=== PATIENT | male | born 1965 | race American Indian/Alaskan Native ===

== ENCOUNTER 2016-11-12 07:21 | Emergency (ER) | payer SELFPAY ==
[2016-11-12] MEDS ORDERED: DUONEB 0.5 MG-3 MG/3 ML SOLN IH ONE (07:49)
--- NOTE | 2016-11-12 11:55 | Emergency Department Report ---
ED Asthma HPI - General Chief Complaint: Adult Asthma Stated Complaint: ASTHMA/SOB Time Seen by Provider: 11/12/16 11:21 Source: patient Mode of arrival: Ambulatory Limitations: No Limitations - History of Present Illness Initial Comments: Patient states that he woke up around 6 am today and was wheezing and SOB, has H /O asthma and had a few episodes like this over the last week; used rescue inhaler and 1 nebulizer treatment this morning, didn't help much; admits to H/O nasal polyps and chronic nasal congestion; denies fevers, sore throat and ear pain MD Complaint: "asthma attack", shortness of breath, wheezing -: Sudden, This morning Asthma History: childhood onset, history of prior ED visit Severity: similar to prior Context: allergen exposure Associated Symptoms: productive cough Treatments Prior to Arrival: inhaled steroid - Related Data Current Asthma Therapy: inhaled steroid Previous Rx's Medication Instructions Recorded Last Taken Type Albuterol Sulfate [Ventolin HFA] 2 puff IH Q4H PRN #1 hfa.aer.ad 02/18/16 Unknown Rx Azithromycin [Zithromax Z-JOEY] 250 mg PO DAILY #1 pack 02/18/16 Unknown Rx Fluticasone [Flonase] 1 spray NS QDAY #1 bottle 02/18/16 Unknown Rx predniSONE [Deltasone] 60 mg PO QDAY #14 tab 02/18/16 Unknown Rx Azithromycin [Zithromax Z-JOEY] 250 mg PO DAILY #6 tablet 06/26/16 Unknown Rx ALBUTEROL Inhaler [ProAir HFA 2 puff IH QID PRN #1 inhalation 07/15/16 Unknown Rx Inhaler] predniSONE [Deltasone] 40 mg PO QDAY #10 tab 07/15/16 Unknown Rx ALBUTEROL NEB's [Proventil 0.083% 2.5 mg IH Q4H PRN #25 neb 11/12/16 Unknown Rx NEBS] Loratadine 10 mg PO DAILY #30 tablet 11/12/16 Unknown Rx methylPREDNISolone [Medrol Dose 4 mg PO QAM #21 tab.ds.pk 11/12/16 Unknown Rx Joey] Allergies Allergy/AdvReac Type Severity Reaction Status Date / Time No Known Allergies Allergy Verified 07/15/16 12:07 ED Review of Systems ROS: Stated complaint: ASTHMA/SOB Other details as noted in HPI Constitutional: denies: chills, fever, weakness ENT: congestion. denies: ear pain, throat pain, hearing loss, epistaxis Respiratory: cough, shortness of breath, SOB with exertion, SOB at rest, wheezing Cardiovascular: denies: chest pain, palpitations, edema Gastrointestinal: denies: nausea, vomiting Musculoskeletal: denies: back pain, myalgia Neurological: headache ED Past Medical Hx - Past Medical History Hx Hypertension: No Hx Congestive Heart Failure: No Hx Diabetes: No Hx Asthma: Yes Hx COPD: No Additional medical history: Nasal polyps - Surgical History Additional Surgical History: MYRNA - Social History Smoking Status: Never Smoker Substance Use Type: None - Medications Home Medications: Home Medications Medication Instructions Recorded Confirmed Last Taken Type Albuterol Sulfate [Ventolin HFA] 2 puff IH Q4H PRN #1 hfa.aer.ad 02/18/16 Unknown Rx Azithromycin [Zithromax Z-JOEY] 250 mg PO DAILY #1 pack 02/18/16 Unknown Rx Fluticasone [Flonase] 1 spray NS QDAY #1 bottle 02/18/16 Unknown Rx predniSONE [Deltasone] 60 mg PO QDAY #14 tab 02/18/16 Unknown Rx Azithromycin [Zithromax Z-JOEY] 250 mg PO DAILY #6 tablet 06/26/16 Unknown Rx ALBUTEROL Inhaler [ProAir HFA 2 puff IH QID PRN #1 inhalation 07/15/16 Unknown Rx Inhaler] predniSONE [Deltasone] 40 mg PO QDAY #10 tab 07/15/16 Unknown Rx ALBUTEROL NEB's [Proventil 0.083% 2.5 mg IH Q4H PRN #25 neb 11/12/16 Unknown Rx NEBS] Loratadine 10 mg PO DAILY #30 tablet 11/12/16 Unknown Rx methylPREDNISolone [Medrol Dose 4 mg PO QAM #21 tab.ds.pk 11/12/16 Unknown Rx Joey] ED Physical Exam - General Limitations: No Limitations General appearance: alert, in no apparent distress - Head Head exam: Present: atraumatic, normocephalic, normal inspection - Eye Eye exam: Present: normal appearance, PERRL, EOMI Pupils: Present: normal accommodation - ENT ENT exam: Present: normal orophraynx, mucous membranes moist, TM's normal bilaterally, other (bilateral large nasal polyps) - Neck Neck exam: Present: normal inspection, full ROM. Absent: tenderness, lymphadenopathy - Respiratory Respiratory exam: Present: normal lung sounds bilaterally. Absent: respiratory distress, wheezes, rales, rhonchi, stridor, chest wall tenderness, accessory muscle use, decreased breath sounds, prolonged expiratory - Cardiovascular Cardiovascular Exam: Present: regular rate, normal rhythm, normal heart sounds - Extremities Exam Extremities exam: Present: full ROM - Back Exam Back exam: Present: full ROM - Neurological Exam Neurological exam: Present: alert, oriented X3, normal gait - Psychiatric Psychiatric exam: Present: normal affect, normal mood - Skin Skin exam: Present: warm, dry, intact, normal color ED Course Vital Signs 11/12/16 07:35 Temperature 97.8 F Pulse Rate 95 H Respiratory 22 Rate Blood Pressure 119/79 O2 Sat by Pulse 98 Oximetry - Reevaluation(s) Reevaluation #1: 11/12/16 11:57 Was medicated with 1 duoneb treatment and solu medrol IM and he felt much better at this time, says he had symptom resolution ED Medical Decision Making - Medical Decision Making In no respiratory distress at time of examination; will send home with oral steroids and nebulizer solution refills, told him to follow up with PCP, he verbalized understanding Critical care attestation.: If time is entered above; I have spent that time in minutes in the direct care of this critically ill patient, excluding procedure time. ED Disposition Clinical Impression: Asthma with acute exacerbation in adult Disposition: DISCHARGED TO HOME OR SELFCARE Is pt being admited?: No Does the pt Need Aspirin: No Condition: Stable Instructions: Asthma (ED) Prescriptions: ALBUTEROL NEB's [Proventil 0.083% NEBS] 2.5 mg IH Q4H PRN #25 neb PRN Reason: Shortness Of Breath Loratadine 10 mg PO DAILY #30 tablet methylPREDNISolone [Medrol Dose Joey] 4 mg PO QAM #21 tab.ds.pk Referrals: PRIMARY CARE, [Primary Care Provider] - 3-5 Days [facility] - [facility]-5 Days Time of Disposition: 12:05 Print Language: GREEK
[2016-11-12 12:12] VITALS: BP 120/72
== END 2016-11-12 12:12 | disposition home or self-care (01) ==
LOC: ED 07:21
DX: J45.901 Unspecified asthma with (acute) exacerbation (principal)
CPT/HCPCS: 94640; 96372; 99282; J2920

== ENCOUNTER 2016-11-23 00:03 | Emergency (ER) | payer SELFPAY ==
--- NOTE | 2016-11-23 06:12 | Emergency Department Report ---
HPI - General Chief Complaint: Adult Asthma Time Seen by Provider: 11/23/16 06:11 - HPI HPI: he is a 51-year-old male with a history of asthma who presents to ED status post asthma exacerbation. Patient states he was at home earlier when all of a sudden he couldn't breathe and began to feel like he was having an asthma attack. Patient's dates he used his last nebulized treatment and went on he realized that did not work so he called the ambulance. The ambulance brought him in given a breathing treatment in the ambulance. Patient states he felt better after receiving treatment. he states he has run out of his medication and would like a refill She denies fevers/chills/nausea/vomiting/abdominal pain/chest pain/shortness of breath. ED Past Medical Hx - Past Medical History Hx Hypertension: No Hx Congestive Heart Failure: No Hx Diabetes: No Hx Asthma: Yes Hx COPD: No Additional medical history: Nasal polyps - Surgical History Additional Surgical History: MYRNA - Social History Smoking Status: Never Smoker Substance Use Type: None - Medications Home Medications: Home Medications Medication Instructions Recorded Confirmed Last Taken Type Fluticasone [Flonase] 1 spray NS QDAY #1 bottle 02/18/16 Unknown Rx predniSONE [Deltasone] 60 mg PO QDAY #14 tab 02/18/16 Unknown Rx Azithromycin [Zithromax Z-LUL] 250 mg PO DAILY #6 tablet 06/26/16 Unknown Rx ALBUTEROL Inhaler [ProAir HFA 2 puff IH QID PRN #1 inhalation 07/15/16 Unknown Rx Inhaler] Loratadine 10 mg PO DAILY #30 tablet 11/12/16 Unknown Rx methylPREDNISolone [Medrol Dose 4 mg PO QAM #21 tab.ds.pk 11/12/16 Unknown Rx Lul] ALBUTEROL NEB's [Proventil 0.083% 2.5 mg IH Q4H PRN #25 neb 11/23/16 Unknown Rx NEBS] Albuterol Sulfate [Ventolin HFA] 2 puff IH Q4H PRN #1 hfa.aer.ad 11/23/16 Unknown Rx Azithromycin [Zithromax Z-LUL] 250 mg PO DAILY #1 pack 11/23/16 Unknown Rx predniSONE [Deltasone] 40 mg PO QDAY #10 tab 11/23/16 Unknown Rx ED Review of Systems ROS: Stated complaint: LYNN Other details as noted in HPI Constitutional: denies: chills, fever Eyes: denies: eye pain, eye discharge, vision change ENT: denies: ear pain, throat pain Respiratory: denies: cough, shortness of breath, wheezing Cardiovascular: denies: chest pain, palpitations Endocrine: no symptoms reported Gastrointestinal: denies: abdominal pain, nausea, diarrhea Genitourinary: denies: urgency, dysuria Musculoskeletal: denies: back pain, joint swelling, arthralgia Skin: denies: rash, lesions Neurological: denies: headache, weakness, paresthesias Psychiatric: denies: anxiety, depression Hematological/Lymphatic: denies: easy bleeding, easy bruising Physical Exam - Physical Exam Vital Signs: Vital Signs 11/23/16 00:39 Temperature 97.7 F Pulse Rate 109 H Respiratory 18 Rate Blood Pressure 137/85 Blood Pressure 137/85 [Left] O2 Sat by Pulse 100 Oximetry Physical Exam: GENERAL: Alert and oriented x3, no apparent distress, Normal Gait, atraumatic. HEAD: Head is normocephalic and a-traumatic. EYES: Extra ocular muscles are intact. Pupils are equal, round, and reactive to light and accommodation. EARS: symetrical, atraumatic, non tender, ear canal clear and moderate cerumen, tympanic membrance non inflamed. gross auditory nml bilaterally. NOSE: Nose symetrical, Nontender,Nares appeared normal. MOUTH:Mouth is well hydrated and without lesions. Tonsils nonerythematous or swollen, Uvula midline, Tongue not elevated. Mucous membranes are moist. Posterior pharynx clear, no exudate or lesions. Patent airways. NECK: Supple. Non edematous, No carotid bruits. No lymphadenopathy or thyromegaly. LUNGS: Symetrical with respiration, mild expiratory wheezing on the right lung base, no rales or crackles, CTAB. HEART: S1, S2 present, regular rate and rhythm without murmur, no rubs, no gallops. EXTREMITIES/MUSCULOSKELETAL: No cyanosis, clubbing, rash, lesions or edema. Full ROM bilaterally. UE/LE Pulses 2+ bilaterally. LE and UE 5+ strength bilaterally NEUROLOGIC: No focal Deficit, Cranial nerves II through XII are grossly intact. No loss of sensation, SKIN: Warm and dry, No lesions, No ulceration or induration present. Capillary refill present 2 seconds bilateral ED Course Vital Signs 11/23/16 00:39 Temperature 97.7 F Pulse Rate 109 H Respiratory 18 Rate Blood Pressure 137/85 Blood Pressure 137/85 [Left] O2 Sat by Pulse 100 Oximetry ED Medical Decision Making - Medical Decision Making 51-year-old male presents with asthma exacerbation ED course patient received respiratory treatment in EMS. Patient received 125 Solu-Medrol IM in ED. Patient reports feeling much better to breathe better. Discussed the patient home medication of antibiotic therapy for section prophylaxis. Discussed refill medication of albuterol inhaler and nebulizer. Discussed refill of prednisone daily 10 days. Discussed with patient to follow up with primary care physician. Discussed with patient to take medication as discussed and prescribed Vital signs are stable. Patient is in no acute or respiratory distress. Patient's sat at 98%. Patient states he understands and will comply to follow-up. She resting comfortable and can be discharged with home medications Critical care attestation.: If time is entered above; I have spent that time in minutes in the direct care of this critically ill patient, excluding procedure time. ED Disposition Clinical Impression: Medication refill Acute asthma exacerbation Qualifiers: Asthma severity: mild persistent Qualified Code(s): J45.31 - Mild persistent asthma with (acute) exacerbation Disposition: DISCHARGED TO HOME OR SELFCARE Is pt being admited?: No Does the pt Need Aspirin: No Condition: Stable Instructions: Asthma (ED) Prescriptions: ALBUTEROL NEB's [Proventil 0.083% NEBS] 2.5 mg IH Q4H PRN #25 neb PRN Reason: Shortness Of Breath Albuterol Sulfate [Ventolin HFA] 2 puff IH Q4H PRN #1 hfa.aer.ad PRN Reason: Shortness Of Breath Azithromycin [Zithromax Z-LUL] 250 mg PO DAILY #1 pack predniSONE [Deltasone] 40 mg PO QDAY #10 tab Referrals: PRIMARY CARE, [Primary Care Provider] - 3-5 Days ROSI COLLINS MD [Referring] - 3-5 Days FATEMEH RICHEY MD [Referring] - 3-5 Days KIMMIE CARRILLO MD [Referring] - 3-5 Days Forms: Work/School Release Form(ED) Time of Disposition: 06:37
[2016-11-23 06:35] VITALS: BP 125/84
== END 2016-11-23 07:01 | disposition home or self-care (01) ==
LOC: ED 00:03
DX: J45.31 Mild persistent asthma with (acute) exacerbation (principal); Z76.0 Encounter for issue of repeat prescription
CPT/HCPCS: 96374; J2930

== ENCOUNTER 2017-03-05 04:58 | Emergency (ER) | payer SELFPAY ==
[2017-03-05] MEDS ORDERED: DUONEB *Not for PRN Use IH ONE (05:28)
--- NOTE | 2017-03-05 05:39 | XRay Report ---
FINAL REPORT EXAM: XR CHEST ROUTINE 2V HISTORY: CP WITH COUGH/FEVER TECHNIQUE: Chest, PA and lateral PRIORS: None. FINDINGS: The heart size is normal. Mediastinal contours are normal. Pulmonary vasculature is not congested. The lungs are clear. There are no pleural effusion seen. There is no evidence of pneumothorax. IMPRESSION: There is no acute abnormality identified.
[2017-03-05 05:42] LABS: Basophils % (Auto) 0.5 % (0.0-1.8); Eosinophils % (Auto) 8.3 % (0.0-4.3); Hemoglobin 11.5 gm/dl (11.8-15.2); Mean Corpuscular HGB Conc 30 % (32-34); Mean Corpuscular Hemoglobin 22 pg (28-32); Mean Corpuscular Volume 71 fl (84-94); Platelet Count 216 K/mm3 (140-440); Red Blood Count 5.33 M/mm3 (3.65-5.03); White Blood Count 11.3 K/mm3 (4.5-11.0)
[2017-03-05 05:53] LABS: Anion Gap 18 mmol/L; BUN/Creatinine Ratio 8.88; Blood Urea Nitrogen 8 mg/dL (9-20); Carbon Dioxide 22 mmol/L (22-30); Chloride 105.5 mmol/L (98-107); Glucose 121 mg/dL (75-100); Sodium 143 mmol/L (137-145)
[2017-03-05 05:58] LABS: Potassium 2.8 mmol/L (3.6-5.0)
[2017-03-05] MEDS ORDERED: K-DUR PO ONE (08:45)
--- NOTE | 2017-03-05 08:45 | Emergency Department Report ---
ED Shortness of Breath HPI - General Chief Complaint: Dyspnea/Respdistress Stated Complaint: COPD Time Seen by Provider: 03/05/17 08:43 Source: patient Mode of arrival: Ambulatory Limitations: No Limitations - History of Present Illness Initial Comments: Patient was already given Duonebs prior to my encounter. He states his wheezing has resolved. He states has been previously prescribed prednisone in November for these symptoms and that was of benefit. He states that he has "pus" in his nose. He's been previously seen by ENT for sinusitis. He does not currently have a physician. He also states he may have sleep apnea but has not followed up with this either. He states he needs a referral. He's had no recent fever or chills. He denies chest pain or generalized weakness. He states he has not been told his potassium runs low before. MD Complaint: "asthma attack" -: days(s) Severity: moderate Consistency: now resolved Improves With: nothing Worsens With: nothing Known History Of: asthma Context: other (sinus drainage) Associated Symptoms: denies other symptoms, other (states he has a tendency to fall sleep thinks he has sleep apnea) Treatments Prior to Arrival: none - Related Data Home Oxygen Therapy: No Previous Rx's Medication Instructions Recorded Last Taken Type Fluticasone [Flonase] 1 spray NS QDAY #1 bottle 02/18/16 Unknown Rx predniSONE [Deltasone] 60 mg PO QDAY #14 tab 02/18/16 Unknown Rx Azithromycin [Zithromax Z-JOEY] 250 mg PO DAILY #6 tablet 06/26/16 Unknown Rx ALBUTEROL Inhaler [ProAir HFA 2 puff IH QID PRN #1 inhalation 07/15/16 Unknown Rx Inhaler] Loratadine 10 mg PO DAILY #30 tablet 11/12/16 Unknown Rx methylPREDNISolone [Medrol Dose 4 mg PO QAM #21 tab.ds.pk 11/12/16 Unknown Rx Joey] Azithromycin [Zithromax Z-JOEY] 250 mg PO DAILY #1 pack 11/23/16 Unknown Rx predniSONE [Deltasone] 40 mg PO QDAY #10 tab 11/23/16 Unknown Rx ALBUTEROL NEB's [Proventil 0.083% 2.5 mg IH Q4H PRN #25 neb 03/05/17 Unknown Rx NEBS] Albuterol Sulfate [Ventolin HFA] 2 puff IH Q4H PRN #1 hfa.aer.ad 03/05/17 Unknown Rx Potassium Chloride [K-Dur] 10 meq PO QDAY #30 tablet 03/05/17 Unknown Rx Allergies Allergy/AdvReac Type Severity Reaction Status Date / Time No Known Allergies Allergy Verified 07/15/16 12:07 ED Review of Systems ROS: Stated complaint: COPD Other details as noted in HPI Constitutional: denies: chills, fever Eyes: denies: eye pain, eye discharge, vision change ENT: as per HPI, congestion. denies: ear pain, throat pain Respiratory: wheezing Cardiovascular: denies: chest pain, palpitations Endocrine: no symptoms reported Gastrointestinal: denies: abdominal pain, nausea, diarrhea Genitourinary: denies: urgency, dysuria Musculoskeletal: denies: back pain, joint swelling, arthralgia Skin: denies: rash, lesions Neurological: denies: headache, weakness, paresthesias Psychiatric: denies: anxiety, depression Hematological/Lymphatic: denies: easy bleeding, easy bruising ED Past Medical Hx - Past Medical History Previous Medical History?: Yes Hx Hypertension: No Hx Congestive Heart Failure: No Hx Diabetes: No Hx Asthma: Yes Hx COPD: No Additional medical history: Nasal polyps - Surgical History Past Surgical History?: Yes Additional Surgical History: MYRNA - Social History Smoking Status: Never Smoker Substance Use Type: None - Medications Home Medications: Home Medications Medication Instructions Recorded Confirmed Last Taken Type Fluticasone [Flonase] 1 spray NS QDAY #1 bottle 02/18/16 Unknown Rx predniSONE [Deltasone] 60 mg PO QDAY #14 tab 02/18/16 Unknown Rx Azithromycin [Zithromax Z-JOEY] 250 mg PO DAILY #6 tablet 06/26/16 Unknown Rx ALBUTEROL Inhaler [ProAir HFA 2 puff IH QID PRN #1 inhalation 07/15/16 Unknown Rx Inhaler] Loratadine 10 mg PO DAILY #30 tablet 11/12/16 Unknown Rx methylPREDNISolone [Medrol Dose 4 mg PO QAM #21 tab.ds.pk 11/12/16 Unknown Rx Joey] Azithromycin [Zithromax Z-JOEY] 250 mg PO DAILY #1 pack 11/23/16 Unknown Rx predniSONE [Deltasone] 40 mg PO QDAY #10 tab 11/23/16 Unknown Rx ALBUTEROL NEB's [Proventil 0.083% 2.5 mg IH Q4H PRN #25 neb 03/05/17 Unknown Rx NEBS] Albuterol Sulfate [Ventolin HFA] 2 puff IH Q4H PRN #1 hfa.aer.ad 03/05/17 Unknown Rx Potassium Chloride [K-Dur] 10 meq PO QDAY #30 tablet 03/05/17 Unknown Rx ED Physical Exam - General Limitations: No Limitations General appearance: alert, in no apparent distress - Head Head exam: Present: atraumatic, normocephalic - Eye Eye exam: Present: normal appearance. Absent: scleral icterus - ENT ENT exam: Present: mucous membranes moist, other (does appear to have some purulent drainage in his nares bilaterally) - Neck Neck exam: Present: normal inspection. Absent: tenderness, meningismus - Respiratory Respiratory exam: Present: normal lung sounds bilaterally. Absent: respiratory distress - Cardiovascular Cardiovascular Exam: Present: regular rate, normal rhythm. Absent: systolic murmur, diastolic murmur, rubs, gallop - GI/Abdominal GI/Abdominal exam: Present: soft, normal bowel sounds. Absent: distended, tenderness, guarding, rebound, rigid - Rectal Rectal exam: Present: deferred - Extremities Exam Extremities exam: Present: normal inspection - Back Exam Back exam: Present: normal inspection - Neurological Exam Neurological exam: Present: alert, oriented X3, CN II-XII intact. Absent: motor sensory deficit - Psychiatric Psychiatric exam: Present: normal affect, normal mood - Skin Skin exam: Present: warm, dry, intact, normal color. Absent: rash ED Course Vital Signs 03/05/17 03/05/17 03/05/17 05:04 05:33 05:47 Temperature 97.6 F Pulse Rate 89 Pulse Rate [ 87 91 H Anterior Bilateral Throughout] Respiratory 22 Rate Respiratory 21 20 Rate [Anterior Bilateral Throughout] Blood Pressure 150/103 O2 Sat by Pulse 100 Oximetry ED Medical Decision Making - Lab Data Result diagrams: 03/05/17 05:22 03/05/17 05:22 Laboratory Results - last 24 hr 03/05/17 03/05/17 05:22 05:22 WBC 11.3 H RBC 5.33 H Hgb 11.5 L Hct 38.0 MCV 71 L MCH 22 L MCHC 30 L RDW 15.0 Plt Count 216 Lymph % (Auto) 24.6 [place] % (Auto) 7.4 H Eos % (Auto) 8.3 H Baso % (Auto) 0.5 Lymph # 2.8 [place] # 0.8 Eos # 0.9 H Baso # 0.1 Seg Neutrophils % 59.2 Seg Neutrophils # 6.7 Sodium 143 Potassium 2.8 L* Chloride 105.5 Carbon Dioxide 22 Anion Gap 18 BUN 8 L Creatinine 0.9 Estimated GFR > 60 BUN/Creatinine Ratio 8.88 Glucose 121 H Calcium 9.0 Critical care attestation.: If time is entered above; I have spent that time in minutes in the direct care of this critically ill patient, excluding procedure time. ED Disposition Clinical Impression: Hypokalemia Acute asthma exacerbation Qualifiers: Asthma severity: mild intermittent Qualified Code(s): J45.21 - Mild intermittent asthma with (acute) exacerbation Chronic sinusitis Qualifiers: Sinusitis location: unspecified location Qualified Code(s): J32.9 - Chronic sinusitis, unspecified Disposition: TO HOME OR SELFCARE Is pt being admited?: No Does the pt Need Aspirin: No Condition: Stable Instructions: Asthma (ED), Hypokalemia (ED), Sinusitis (ED) Additional Instructions: Further evaluation and management in the primary care setting is very important. Her potassium was found to be low. I've given you medication to replete that potassium level. It is uncertain as to the cause of this. See referral for further evaluation. Rx for your sinusitis. Course of prednisone for your asthma exacerbation and albuterol. Return as needed any acute change or problem. Sleep apnea treatment in the primary care setting. Follow-up is very important. Prescriptions: ALBUTEROL NEB's [Proventil 0.083% NEBS] 2.5 mg IH Q4H PRN #25 neb PRN Reason: Shortness Of Breath Albuterol Sulfate [Ventolin HFA] 2 puff IH Q4H PRN #1 hfa.aer.ad PRN Reason: Shortness Of Breath Potassium Chloride [K-Dur] 10 meq PO QDAY #30 tablet Referrals: PRIMARY CARE, [Primary Care Provider] - 3-5 Days [facility] [Provider Group] - 3-5 Days RONEY GILL MD [Staff Physician] - 3-5 Days
[2017-03-05] MEDS ORDERED: DELTASONE PO ONE (09:02)
[2017-03-05 09:11] VITALS: BP 148/89
== END 2017-03-05 09:12 | disposition home or self-care (01) ==
LOC: ED 04:58
DX: J45.21 Mild intermittent asthma with (acute) exacerbation (principal); J32.9 Chronic sinusitis, unspecified; E87.6 Hypokalemia
CPT/HCPCS: 36415; 71020; 80048; 85025; 94640

== ENCOUNTER 2017-04-13 19:14 | Emergency (ER) | payer OTHER ==
[2017-04-13] MEDS ORDERED: ATROVENT IH ONE (20:11)
[2017-04-13] MEDS ORDERED: PROVENTIL IH ONE (20:11)
--- NOTE | 2017-04-13 20:28 | Emergency Department Report ---
ED Shortness of Breath HPI - General Chief Complaint: Dyspnea/Respdistress Stated Complaint: DIFFICULTY IN BREATHING Time Seen by Provider: 04/13/17 20:07 Source: patient Mode of arrival: Stretcher Limitations: No Limitations - History of Present Illness Initial Comments: 51 years old male known history of COPD stated that today he started having more difficulty breathing cough greenish sputum. Denied any fever chest pain no nausea no vomiting and all her supervisor chemical at this moment. Patient received albuterol treatments by ambulance personnel he stated that he is feeling better. MD Complaint: shortness of breath, cough -: Gradual, This afternoon Known History Of: COPD Associated Symptoms: denies other symptoms, cough, sputum production - Related Data Previous Rx's Medication Instructions Recorded Last Taken Type Azithromycin [Zithromax Z-JOEY] 250 mg PO DAILY #6 tablet 06/26/16 04/13/17 Rx ALBUTEROL Inhaler [ProAir HFA 2 puff IH QID PRN #1 inhalation 07/15/16 04/13/17 Rx Inhaler] Loratadine 10 mg PO DAILY #30 tablet 11/12/16 04/13/17 Rx ALBUTEROL NEB's [Proventil 0.083% 2.5 mg IH Q4H PRN #25 neb 03/05/17 04/13/17 Rx NEBS] Albuterol Sulfate [Ventolin HFA] 2 puff IH Q4H PRN #1 hfa.aer.ad 03/05/17 Rx Potassium Chloride [K-Dur] 10 meq PO QDAY #30 tablet 03/05/17 04/13/17 Rx ALBUTEROL Inhaler [ProAir HFA 2 puff IH QID PRN #1 inhalation 04/13/17 Unknown Rx Inhaler] Levofloxacin [Levaquin TAB] 500 mg PO QDAY #7 tablet 04/13/17 Unknown Rx Prednisone [predniSONE 10 mg 10 mg PO .TAPER #1 tab.ds.pk 04/13/17 Unknown Rx (6-Day Pack, 21 Tabs)] Allergies Allergy/AdvReac Type Severity Reaction Status Date / Time No Known Allergies Allergy Verified 07/15/16 12:07 ED Review of Systems ROS: Stated complaint: DIFFICULTY IN BREATHING Other details as noted in HPI Comment: All other systems reviewed and negative Constitutional: denies: chills, fever Respiratory: cough, shortness of breath, SOB with exertion, SOB at rest Cardiovascular: denies: chest pain, palpitations Gastrointestinal: denies: abdominal pain, nausea, vomiting ED Past Medical Hx - Past Medical History Hx Hypertension: No Hx Congestive Heart Failure: No Hx Diabetes: No Hx Asthma: Yes Hx COPD: No Additional medical history: Nasal polyps - Surgical History Additional Surgical History: MYRNA - Social History Smoking Status: Never Smoker - Medications Home Medications: Home Medications Medication Instructions Recorded Confirmed Last Taken Type Azithromycin [Zithromax Z-JOEY] 250 mg PO DAILY #6 tablet 06/26/16 04/13/17 Rx ALBUTEROL Inhaler [ProAir HFA 2 puff IH QID PRN #1 inhalation 07/15/16 04/13/17 04/13/17 Rx Inhaler] Loratadine 10 mg PO DAILY #30 tablet 11/12/16 04/13/17 04/13/17 Rx ALBUTEROL NEB's [Proventil 0.083% 2.5 mg IH Q4H PRN #25 neb 03/05/17 04/13/17 Rx NEBS] Albuterol Sulfate [Ventolin HFA] 2 puff IH Q4H PRN #1 hfa.aer.ad 03/05/1704/13/17 Rx Potassium Chloride [K-Dur] 10 meq PO QDAY #30 tablet 03/05/17 04/13/17 04/13/17 Rx ALBUTEROL Inhaler [ProAir HFA 2 puff IH QID PRN #1 inhalation 04/13/17 Unknown Rx Inhaler] Levofloxacin [Levaquin TAB] 500 mg PO QDAY #7 tablet 04/13/17 Unknown Rx Prednisone [predniSONE 10 mg 10 mg PO .TAPER #1 tab.ds.pk 04/13/17 Unknown Rx (6-Day Pack, 21 Tabs)] ED Physical Exam - General Limitations: No Limitations General appearance: alert, in no apparent distress - Head Head exam: Present: normocephalic - ENT ENT exam: Present: normal exam - Neck Neck exam: Present: normal inspection, full ROM. Absent: tenderness, meningismus - Respiratory Respiratory exam: Present: wheezes, rhonchi, decreased breath sounds. Absent: stridor, chest wall tenderness, accessory muscle use - Cardiovascular Cardiovascular Exam: Present: regular rate, normal rhythm, normal heart sounds - GI/Abdominal GI/Abdominal exam: Present: soft. Absent: tenderness, guarding, rebound - Neurological Exam Neurological exam: Present: alert, oriented X3, CN II-XII intact - Skin Skin exam: Present: warm, normal color ED Course Vital Signs 04/13/17 04/13/17 19:34 20:51 Temperature 97.9 F Pulse Rate 108 H Pulse Rate [ 81 Posterior] Respiratory 20 Rate Respiratory 15 Rate [Posterior ] Blood Pressure 110/77 O2 Sat by Pulse 95 Oximetry - Reevaluation(s) Reevaluation #1: 04/13/17 21:46 Patient stated that he is feeling much better will discharge patient to follow up with his primary care physician. ED Medical Decision Making - Lab Data Result diagrams: 04/13/17 20:25 04/13/17 20:25 Critical care attestation.: If time is entered above; I have spent that time in minutes in the direct care of this critically ill patient, excluding procedure time. ED Disposition Clinical Impression: COPD exacerbation Disposition: DC-01 TO HOME OR SELFCARE Is pt being admited?: No Does the pt Need Aspirin: No Condition: Stable Instructions: Chronic Obstructive Pulmonary Disease (ED), Acute Bronchitis (ED) Prescriptions: Levofloxacin [Levaquin TAB] 500 mg PO QDAY #7 tablet
[2017-04-13 20:33] LABS: Basophils % (Auto) 0.6 % (0.0-1.8); Eosinophils % (Auto) 4.9 % (0.0-4.3); Hematocrit 36.6 % (35.5-45.6); Hemoglobin 11.6 gm/dl (11.8-15.2); Mean Corpuscular HGB Conc 32 % (32-34); Mean Corpuscular Volume 70 fl (84-94); Platelet Count 220 K/mm3 (140-440)
[2017-04-13 20:34] LABS: Mean Corpuscular Hemoglobin 22 pg (28-32)
[2017-04-13 20:53] LABS: Alanine Aminotransferase 24 units/L (7-56); Albumin 3.8 g/dL (3.9-5); Albumin/Globulin Ratio 1.2 %; Alkaline Phosphatase 72 units/L (35-129); Anion Gap 16 mmol/L; Blood Urea Nitrogen 14 mg/dL (9-20); Calcium 8.4 mg/dL (8.4-10.2); Carbon Dioxide 26 mmol/L (22-30); Chloride 106.1 mmol/L (98-107); Glucose 110 mg/dL (75-100); Potassium 3.2 mmol/L (3.6-5.0); Sodium 145 mmol/L (137-145); Total Protein 7.1 g/dL (6.3-8.2)
[2017-04-13 22:11] VITALS: BP 121/86
--- NOTE | 2017-04-14 07:46 | XRay Report ---
Single view chest: Compared to 03/05/17. History: Dyspnea. Findings: Normal cardiomediastinal silhouette. Trachea is midline. No consolidation, pneumothorax or pleural effusion. Impression: No acute cardiopulmonary findings.
== END 2017-04-13 22:11 | disposition home or self-care (01) ==
LOC: ED 19:14
DX: J44.1 Chronic obstructive pulmonary disease with (acute) exacerbation (principal)
CPT/HCPCS: 36415; 71010; 80053; 85025; 93005; 93010; 96374; 99285; J2930

== ENCOUNTER 2017-06-11 04:22 | Emergency (ER) | payer SELFPAY ==
[2017-06-11 05:01] VITALS: BP 135/86
--- NOTE | 2017-06-11 07:05 | Emergency Department Report ---
ED Shortness of Breath HPI - General Chief Complaint: Dyspnea/Respdistress Stated Complaint: LYNN Time Seen by Provider: 06/11/17 06:44 Source: patient Mode of arrival: Stretcher Limitations: No Limitations - History of Present Illness Initial Comments: 51-year-old male with a past medical history asthma with history of 2 previous intubations presents to the hospital with complaints of shortness of breath 1 day. Patient received albuterol, Solu-Medrol, and magnesium in route and reports improvement. Patient is [facility] ED for approximately 2 hours without any additional treatments reports feeling better. Complains of cough the last 2-3 days productive of clear sputum without chest pain, fever, calf tenderness, or edema. Improves With: bronchodilators Worsens With: exertion - Related Data Previous Rx's Medication Instructions Recorded Last Taken Type Azithromycin [Zithromax Z-JOEY] 250 mg PO DAILY #6 tablet 06/26/16 04/13/17 Rx ALBUTEROL Inhaler [ProAir HFA 2 puff IH QID PRN #1 inhalation 07/15/16 04/13/17 Rx Inhaler] Loratadine 10 mg PO DAILY #30 tablet 11/12/16 1 Week Ago Rx Albuterol Sulfate [Ventolin HFA] 2 puff IH Q4H PRN #1 hfa.aer.ad 03/05/17 2 Weeks Ago Rx Potassium Chloride [K-Dur] 10 meq PO QDAY #30 tablet 03/05/17 04/13/17 Rx Levofloxacin [Levaquin TAB] 500 mg PO QDAY #7 tablet 04/13/17 Unknown Rx Prednisone [predniSONE 10 mg 10 mg PO .TAPER #1 tab.ds.pk 04/13/17 Unknown Rx (6-Day Pack, 21 Tabs)] ALBUTEROL Inhaler [ProAir HFA 2 puff IH QID PRN #1 inhalation 06/11/17 Unknown Rx Inhaler] ALBUTEROL NEB's [Proventil 0.083% 2.5 mg IH Q4H PRN #1 box 06/11/17 Unknown Rx NEBS] predniSONE [Deltasone] 40 mg PO QDAY 5 Days 06/11/17 Unknown Rx Allergies Allergy/AdvReac Type Severity Reaction Status Date / Time No Known Allergies Allergy Verified 07/15/16 12:07 ED Review of Systems ROS: Stated complaint: LYNN Other details as noted in HPI Comment: All other systems reviewed and negative Other: Constitutional: No fevers chills Eyes: No eye pain visual changes ENT: No ear pain or throat pain Neck: Denies pain Respiratory: As per age per hpi Cardiovascular: Denies chest pain, palpitations, syncope GI: Denies abdominal pain, nausea, vomiting, diarrhea : Denies dysuria Musculoskeletal: Denies back pain Skin: Denies rash, lesions, erythema Neurologic: Denies headache, numbness, weakness Psychiatric: Denies suicidal ideation, hallucinations ED Past Medical Hx - Past Medical History Previous Medical History?: Yes Hx Hypertension: No Hx Congestive Heart Failure: No Hx Diabetes: No Hx Asthma: Yes Hx COPD: No Additional medical history: Nasal polyps - Surgical History Additional Surgical History: MYRNA - Social History Smoking Status: Never Smoker - Medications Home Medications: Home Medications Medication Instructions Recorded Confirmed Last Taken Type Azithromycin [Zithromax Z-JOEY] 250 mg PO DAILY #6 tablet 06/26/16 04/13/17 Rx ALBUTEROL Inhaler [ProAir HFA 2 puff IH QID PRN #1 inhalation 07/15/16 04/13/17 04/13/17 Rx Inhaler] Loratadine 10 mg PO DAILY #30 tablet 11/12/16 04/13/17 1 Week Ago Rx Albuterol Sulfate [Ventolin HFA] 2 puff IH Q4H PRN #1 hfa.aer.ad 03/05/17 2 Weeks Ago Rx Potassium Chloride [K-Dur] 10 meq PO QDAY #30 tablet 03/05/17 04/13/17 04/13/17 Rx Levofloxacin [Levaquin TAB] 500 mg PO QDAY #7 tablet 04/13/17 Unknown Rx Prednisone [predniSONE 10 mg 10 mg PO .TAPER #1 tab.ds.pk 04/13/17 Unknown Rx (6-Day Pack, 21 Tabs)] ALBUTEROL Inhaler [ProAir HFA 2 puff IH QID PRN #1 inhalation 06/11/17 Unknown Rx Inhaler] ALBUTEROL NEB's [Proventil 0.083% 2.5 mg IH Q4H PRN #1 box 06/11/17 Unknown Rx NEBS] predniSONE [Deltasone] 40 mg PO QDAY 5 Days 06/11/17 Unknown Rx ED Physical Exam - General Limitations: No Limitations - Other Other exam information: General: No limitations, patient is alert in no acute distress Head exam: Atraumatic, normocephalic Eyes exam: Normal appearance ENT: Moist mucous membrane, normal oropharynx Neck exam: Normal inspection, full range of motion, no meningismus nontender Respiratory exam: Clear to auscultation bilateral, no wheezes, rales, crackles Cardiovascular: Normal rate and rhythm, normal heart sounds Abdomen: Soft, nondistended, and nontender, with normal bowel sounds, no rebound, or guarding Extremity: Full range of motion normal inspection no deformity, no calf tenderness or edema Back: Normal Inspection, full range of motion, no tenderness Neurologic: Alert, oriented x3, cranial nerves intact, no motor or sensory deficit Psychiatric: normal affect, normal mood Skin: Warm, dry, intact ED Course Vital Signs 06/11/17 06/11/17 04:46 05:23 Temperature 98 F 98 F Pulse Rate 101 H 101 H Respiratory 20 20 Rate Blood Pressure 135/86 Blood Pressure 135/86 [Left] O2 Sat by Pulse 98 98 Oximetry - Reevaluation(s) Reevaluation #1: 06/11/17 07:02 Patient was ambulated throughout the ED reports that he feels better without dyspnea or chest pain ED Medical Decision Making - Medical Decision Making Patient be treated for acute asthma exacerbation with prednisone and additional nebs and inhalers prescriptions. - Differential Diagnosis asthma, bronchitis, pneumonia, URI Critical Care Time: No Critical care attestation.: If time is entered above; I have spent that time in minutes in the direct care of this critically ill patient, excluding procedure time. ED Disposition Clinical Impression: Acute asthma exacerbation Disposition: TO HOME OR SELFCARE Is pt being admited?: No Does the pt Need Aspirin: No Condition: Stable Instructions: Asthma (ED) Additional Instructions: That the medication as prescribed. Return if symptoms worsen. Prescriptions: ALBUTEROL Inhaler [ProAir HFA Inhaler] 2 puff IH QID PRN #1 inhalation PRN Reason: Shortness Of Breath ALBUTEROL NEB's [Proventil 0.083% NEBS] 2.5 mg IH Q4H PRN #1 box PRN Reason: Shortness Of Breath predniSONE [Deltasone] 40 mg PO QDAY 5 Days Referrals: PRIMARY CARE, [Primary Care Provider] - 3-5 Days Time of Disposition: :05
== END 2017-06-11 07:16 | disposition home or self-care (01) ==
LOC: ED 04:22
DX: J45.901 Unspecified asthma with (acute) exacerbation (principal)
CPT/HCPCS: 93005; 93010; 99283

== ENCOUNTER 2017-08-29 08:41 | Emergency (ER) | payer SELFPAY ==
[2017-08-29 09:09] LABS: Basophils # (Auto) 0.1 K/mm3 (0.0-0.1); Eosinophils # (Auto) 0.1 K/mm3 (0.0-0.4); Eosinophils % (Auto) 0.6 % (0.0-4.3); Hematocrit 40.1 % (35.5-45.6); Hemoglobin 12.6 gm/dl (11.8-15.2); Lymphocytes # (Auto) 0.7 K/mm3 (1.2-5.4); Lymphocytes % (Auto) 6.5 % (13.4-35.0); Mean Corpuscular HGB Conc 31 % (32-34); Mean Corpuscular Volume 71 fl (84-94); Monocytes # (Auto) 0.8 K/mm3 (0.0-0.8); Monocytes % (Auto) 7.6 % (0.0-7.3); Platelet Count 194 K/mm3 (140-440); Red Blood Count 5.62 M/mm3 (3.65-5.03); Red Cell Distribution Width 14.7 % (13.2-15.2)
--- NOTE | 2017-08-29 09:12 | XRay Report ---
Chest 2 views: History: Shortness of breath. Findings: Normal cardiomediastinal silhouette. Trachea is midline. No consolidation, pneumothorax or pleural effusion. Impression: No acute cardiopulmonary findings.
[2017-08-29 09:13] LABS: Mean Corpuscular Hemoglobin 22 pg (28-32)
--- NOTE | 2017-08-29 09:20 | Emergency Department Report ---
HPI - General Chief Complaint: Dyspnea/Respdistress Time Seen by Provider: 08/29/17 09:12 - HPI HPI: The patient is a 51-year-old male who presents for evaluation of dyspnea and cough. The patient has a history of asthma. The patient reports a mildly productive cough since yesterday, and dyspnea since this morning, constant for the past 2 hours, severe, exacerbated with coughing or exertion, and improved with rest. The patient denies fever, syncope, chest pain, hemoptysis, unilateral leg swelling, recent immobilization, history of DVT or PE, recent cancer. ED Past Medical Hx - Past Medical History Previous Medical History?: Yes Hx Hypertension: No Hx Congestive Heart Failure: No Hx Diabetes: No Hx Asthma: Yes Hx COPD: No Additional medical history: Nasal polyps - Surgical History Past Surgical History?: Yes Additional Surgical History: MYRNA - Social History Smoking Status: Never Smoker Substance Use Type: Non Opiate Pain, Prescribed, Other - Medications Home Medications: Home Medications Medication Instructions Recorded Confirmed Last Taken Type Azithromycin [Zithromax Z-JOEY] 250 mg PO DAILY #6 tablet 06/26/16 04/13/17 Rx ALBUTEROL Inhaler [ProAir HFA 2 puff IH QID PRN #1 inhalation 07/15/16 04/13/17 04/13/17 Rx Inhaler] Loratadine 10 mg PO DAILY #30 tablet 11/12/16 04/13/17 1 Week Ago Rx ~06/04/17 Albuterol Sulfate [Ventolin HFA] 2 puff IH Q4H PRN #1 hfa.aer.ad 03/05/17 2 Weeks Ago Rx ~05/28/17 Potassium Chloride [K-Dur] 10 meq PO QDAY #30 tablet 03/05/17 04/13/17 04/13/17 Rx Levofloxacin [Levaquin TAB] 500 mg PO QDAY #7 tablet 04/13/17 Unknown Rx Prednisone [predniSONE 10 mg 10 mg PO .TAPER #1 tab.ds.pk 04/13/17 Unknown Rx (6-Day Pack, 21 Tabs)] ALBUTEROL Inhaler [ProAir HFA 2 puff IH QID PRN #1 inhalation 06/11/17 Unknown Rx Inhaler] ALBUTEROL NEB's [Proventil 0.083% 2.5 mg IH Q4H PRN #1 box 06/11/17 Unknown Rx NEBS] predniSONE [Deltasone] 40 mg PO QDAY 5 Days tab 06/11/17 Unknown Rx ALBUTEROL Inhaler [ProAir HFA 2 puff IH QID PRN #1 inhalation 08/29/17 Unknown Rx Inhaler] Benzonatate [Tessalon Perles] 100 mg PO Q8HR #14 capsule 08/29/17 Unknown Rx Phenylephrine/Dm/Acetaminop/GG 20 ml PO Q4HR PRN #180 liquid 08/29/17 Unknown Rx [Mucinex Gckp-Aar-Riesamxeha Lq] predniSONE [Deltasone] 20 mg PO QDAY #5 tab 08/29/17 Unknown Rx ED Review of Systems ROS: Stated complaint: ASTHMA Other details as noted in HPI Constitutional: denies: fever ENT: denies: throat or neck pain Respiratory: reports cough, shortness of breath Cardiovascular: denies: chest pain Endocrine: denies unexplained weight loss or gain Gastrointestinal: denies: abdominal pain, nausea Genitourinary: denies: dysuria Musculoskeletal: denies: leg swelling Skin: denies: rash Neurological: denies: headache Hematological/Lymphatic: denies: easy bleeding or easy bruising Psych: denies sadness or hopelessness Physical Exam - Physical Exam Vital Signs: Vital Signs 08/29/17 08:45 Temperature 98.1 F Pulse Rate 124 H Respiratory 22 Rate Blood Pressure 114/72 O2 Sat by Pulse 92 Oximetry Physical Exam: General: well-nourished, well-developed, no acute distress Head: Normocephalic, atraumatic Eyes: normal sclera ENT: Mucous membranes are pale and dry Neck: No neck stiffness, no cervical adenopathy Respiratory: mildly diminished breath sounds and wheezing present at the apical lung lobo bilaterally, no costal retractions, no respiratory distress Cardio: S1 and S2 present, no murmurs, rubs, gallops, capillary refill is delayed Abdomen: Normoactive bowel sounds, soft abdomen, no rigidity, no guarding or rebound tenderness Musc: No pitting edema Skin: No rash Neuro: no facial drooping, normal speech Psych: Normal affect ED Course Vital Signs 08/29/17 08:45 Temperature 98.1 F Pulse Rate 124 H Respiratory 22 Rate Blood Pressure 114/72 O2 Sat by Pulse 92 Oximetry ED Medical Decision Making - Lab Data Result diagrams: 08/29/17 08:52 08/29/17 08:52 - Medical Decision Making The patient was seen and examined by myself. The patient is placed on a cardiac monitor technician and continuous pulse ox. On initial evaluation, the patient was found to be in no distress. Evaluation orders were placed. The patient is given a breathing treatment and steroids for txt of COPD. the patient is given 1 L normal saline fluid bolus for treatment of dehydration. Chest x-ray negative for focal consolidation, pleural effusions, pulmonary congestion, pneumothorax, or other acute cardio pulmonary disease process. Lab results are grossly not concerning. The patient was reevaluated and reported that their symptoms were markedly improved. The patient is stable for discharge with outpatient follow-up. The patient is given follow-up and return instructions. The patient expressed understanding and agreed with the plan. The patient is given a prescription for prednisone. The patient is discharged in stable condition. Critical care attestation.: If time is entered above; I have spent that time in minutes in the direct care of this critically ill patient, excluding procedure time. ED Disposition Clinical Impression: Upper respiratory infection, acute, Dehydration Acute asthma exacerbation Qualifiers: Asthma severity: moderate Asthma persistence: unspecified Qualified Code(s): J45.901 - Unspecified asthma with (acute) exacerbation Disposition: DC-01 TO HOME OR SELFCARE Is pt being admited?: No Does the pt Need Aspirin: No Condition: Stable Instructions: Asthma (ED), Upper Respiratory Infection (ED) Referrals: PRIMARY CARE, [Primary Care Provider] - 3-5 Days Time of Disposition: 10:03
[2017-08-29] MEDS ORDERED: DUONEB *Not for PRN Use IH ONE (09:23)
[2017-08-29] MEDS ORDERED: TESSALON PERLES PO ONE (09:23)
[2017-08-29] MEDS ORDERED: DELTASONE PO ONE (09:23)
[2017-08-29] MEDS ORDERED: NACL 0.9% 1000 ML 1,000 ML IV ONE (09:24)
[2017-08-29 09:46] LABS: BUN/Creatinine Ratio 12; Blood Urea Nitrogen 13 mg/dL (9-20); Calcium 8.8 mg/dL (8.4-10.2); Hemolysis Index 1
[2017-08-29 12:57] VITALS: BP 128/79
== END 2017-08-29 12:57 | disposition home or self-care (01) ==
LOC: ED 08:41
DX: J45.901 Unspecified asthma with (acute) exacerbation (principal); J06.9 Acute upper respiratory infection, unspecified; E86.0 Dehydration
CPT/HCPCS: 36415; 71046; 80048; 85025; 87400; 93005; 93010; 94640; 96360; 99284; J7030; J7512

== ENCOUNTER 2018-01-28 22:31 | Emergency (ER) | payer SELFPAY ==
[2018-01-28] MEDS ORDERED: DUONEB *Not for PRN Use IH ONE ×2 (22:37→22:54)
[2018-01-28 22:51] VITALS: BP 150/85
--- NOTE | 2018-01-28 23:20 | XRay Report ---
FINAL REPORT PROCEDURE: XR KNEE 1-2V LT TECHNIQUE: LEFT knee radiographs, AP and lateral views. CPT 95135 HISTORY: left knee pain COMPARISON: No prior studies are available for comparison. FINDINGS: Fracture (s) and/or Dislocation(s): None . Alignment: Normal . Joint space(s): Normal . Soft tissues: Normal . Bone mineralization: Normal . Foreign bodies: None . IMPRESSION: Normal Examination.
--- NOTE | 2018-01-28 23:21 | XRay Report ---
FINAL REPORT PROCEDURE: XR SHOULDER 2+V LT TECHNIQUE: LEFT shoulder radiographs including AP views in internal and external rotation and abduction. CPT 71210 HISTORY: left shoulder pain COMPARISON: No prior studies are available for comparison. FINDINGS: Fracture (s) and/or Dislocation(s): None . Joint space(s): Normal . Soft tissues: Normal . Bone mineralization: Normal . Foreign bodies: None . IMPRESSION: Normal Examination
--- NOTE | 2018-01-28 23:22 | XRay Report ---
FINAL REPORT PROCEDURE: XR HAND 3+V RT TECHNIQUE: RIGHT hand radiographs, AP, lateral, and oblique views. CPT 88822-GU HISTORY: Right hand pain COMPARISON: No prior studies are available for comparison. FINDINGS: Fracture (s) and/or Dislocation(s): None . Alignment: Normal . Joint space(s): Normal . Soft tissues: Normal . Bone mineralization: Normal . Foreign bodies: None . IMPRESSION: Normal Examination .
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
[2018-01-28] MEDS ORDERED: NORCO 5/325 PO ONE (23:51)
[2018-01-28] MEDS ORDERED: MOTRIN PO ONE (23:51)
== END 2018-01-29 00:20 | disposition home or self-care (01) ==
LOC: ED 22:31
DX: S83.8X2A Sprain of other specified parts of left knee, initial encounter (principal); S63.614A Unspecified sprain of right ring finger, initial encounter; M25.512 Pain in left shoulder; Y08.89XA Assault by other specified means, initial encounter; Y93.89 Activity, other specified; Y92.89 Other specified places as the place of occurrence of the external cause; Y99.8 Other external cause status; J45.909 Unspecified asthma, uncomplicated

== ENCOUNTER 2020-03-02 17:08 | Emergency (ER) | payer SELFPAY ==
[2020-03-02] MEDS ORDERED: MAGNESIUM SULFATE 2 GM/50 ML BAG IV ONE (19:51)
[2020-03-02] MEDS ORDERED: IPRATROPIUM/ALBUTEROL SULFATE 3 ML AMPUL.NEB IH ONE (19:51)
[2020-03-02] MEDS ORDERED: dexAMETHasone 20 MG/5 ML VIAL IV ONE (19:51)
[2020-03-02] MEDS ORDERED: ASPIRIN 325 MG TAB PO ONE (19:52)
--- NOTE | 2020-03-02 20:19 | XRay Report ---
CHEST 1 VIEW INDICATION / CLINICAL INFORMATION: dyspnea. COMPARISON: 04/13/2017, 12/12/2019 FINDINGS: SUPPORT DEVICES: None. HEART / MEDIASTINUM: No significant abnormality. LUNGS / PLEURA: No significant pulmonary or pleural abnormality. No pneumothorax. ADDITIONAL FINDINGS: No significant additional findings. IMPRESSION: 1. No acute findings. No interval change. Signer Name: Lilly Shane MD Signed: 03/02/2020 8:15 PM Workstation Name: [id number]
[2020-03-02 20:30] LABS: Basophils % (Auto) 0.4 % (0.0-1.8); Eosinophils # (Auto) 0.4 K/mm3 (0.0-0.4); Eosinophils % (Auto) 4.2 % (0.0-4.3); Hematocrit 38.9 % (35.5-45.6); Lymphocytes # (Auto) 2.6 K/mm3 (1.2-5.4); Lymphocytes % (Auto) 26.3 % (13.4-35.0); Mean Corpuscular HGB Conc 31 % (32-34); Mean Corpuscular Volume 71 fl (84-94); Monocytes # (Auto) 0.7 K/mm3 (0.0-0.8); Monocytes % (Auto) 7.3 % (0.0-7.3); Platelet Count 213 K/mm3 (140-440); Red Cell Distribution Width 15.1 % (13.2-15.2)
[2020-03-02 20:42] LABS: Alanine Aminotransferase 22 units/L (7-56); Albumin 3.7 g/dL (3.9-5); BUN/Creatinine Ratio 18; Blood Urea Nitrogen 16 mg/dL (9-20); Calcium 8.7 mg/dL (8.4-10.2); Hemolysis Index 9
--- NOTE | 2020-03-02 21:24 | Emergency Department Report ---
ED Shortness of Breath HPI - General Chief Complaint: Adult Asthma Stated Complaint: ASTHMA ATTACK Source: patient Mode of arrival: Ambulatory Limitations: No Limitations - History of Present Illness Initial Comments: Patient is a 54-year-old -[place] male with a history of asthma who presents to the ED with complaint of acute onset persistent shortness of breath, wheezing, persistent dry cough, nasal and sinus congestion for the last 2 days. Patient states that he has been using his albuterol nebulizer and inhalers at home intermittently to help him breathe but states that he ran out of these medications and the shortness of breath and wheezing got worse. Patient states that the last time he used his albuterol nebulizer was 1 hour prior to arrival in the ED. patient states that his latest episode got worse because of exposure to environmental allergens when he went outdoors. Patient states that in the last 1 month he has had persistent recurrent asthma attacks. Patient denies chest pain, dizziness, syncope, nausea, vomiting, fever, chills, sore throat, abdominal pain, palpitations or headache. MD Complaint: shortness of breath, cough, "asthma attack" -: Sudden, hour(s) (24) Severity: moderate Pain Scale: 6 Quality: dull Consistency: intermittent Improves With: bronchodilators Worsens With: coughing Known History Of: asthma Context: recent URI, allergen exposure Associated Symptoms: cough Treatments Prior to Arrival: bronchodilator - Related Data Home Oxygen Therapy: No Previous Rx's Medication Instructions Recorded Last Taken Type Cetirizine HCl [ZyrTEC] 10 mg PO DAILY #30 capsule 01/26/20 Unknown Rx Fluticasone [Flonase] 1 spray NS QDAY #1 bottle 01/26/20 Unknown Rx predniSONE [Deltasone] 20 mg PO DAILY #5 tablet 01/26/20 Unknown Rx ALBUTEROL NEB's [Proventil 0.083% 3 ml IH Q6H PRN #75 ml 03/02/20 Unknown Rx NEBS] Albuterol Mdi (or & Nicu Only) 2 puff IH QID PRN #1 inhalation 03/02/20 Unknown Rx [ProAir HFA Inhaler] Azithromycin [Zithromax Z-JOEY] 250 mg PO DAILY #6 tablet 03/02/20 Unknown Rx Benzonatate [Tessalon Perles] 100 mg PO Q8HR #30 capsule 03/02/20 Unknown Rx Cetirizine HCl [Zyrtec 10mg tab] 10 mg PO DAILY #30 tablet 03/02/20 Unknown Rx Prednisone [predniSONE 10 mg 10 mg PO .TAPER #21 tab.ds.pk 03/02/20 Unknown Rx (6-Day Pack, 21 Tabs)] Allergies Allergy/AdvReac Type Severity Reaction Status Date / Time No Known Allergies Allergy Verified 01/26/20 08:18 ED Review of Systems ROS: Stated complaint: ASTHMA ATTACK Other details as noted in HPI Constitutional: denies: chills, fever Eyes: denies: eye pain, eye discharge, vision change ENT: congestion. denies: ear pain, throat pain Respiratory: cough, shortness of breath, wheezing Cardiovascular: denies: chest pain, palpitations Endocrine: no symptoms reported Gastrointestinal: denies: abdominal pain, nausea, diarrhea Genitourinary: denies: urgency, dysuria Musculoskeletal: denies: back pain, joint swelling, arthralgia Skin: denies: rash, lesions Neurological: denies: headache, weakness, paresthesias Psychiatric: denies: anxiety, depression Hematological/Lymphatic: denies: easy bleeding, easy bruising ED Past Medical Hx - Past Medical History Previous Medical History?: Yes Hx Hypertension: No Hx Congestive Heart Failure: No Hx Diabetes: No Hx Asthma: Yes Hx COPD: No Additional medical history: Nasal polyps - Surgical History Additional Surgical History: MYRNA - Social History Smoking Status: Never Smoker Substance Use Type: None - Medications Home Medications: Home Medications Medication Instructions Recorded Confirmed Last Taken Type Cetirizine HCl [ZyrTEC] 10 mg PO DAILY #30 capsule 01/26/20 Unknown Rx Fluticasone [Flonase] 1 spray NS QDAY #1 bottle 01/26/20 Unknown Rx predniSONE [Deltasone] 20 mg PO DAILY #5 tablet 01/26/20 Unknown Rx ALBUTEROL NEB's [Proventil 0.083% 3 ml IH Q6H PRN #75 ml 03/02/20 Unknown Rx NEBS] Albuterol Mdi (or & Nicu Only) 2 puff IH QID PRN #1 inhalation 03/02/20 Unknown Rx [ProAir HFA Inhaler] Azithromycin [Zithromax Z-JOEY] 250 mg PO DAILY #6 tablet 03/02/20 Unknown Rx Benzonatate [Tessalon Perles] 100 mg PO Q8HR #30 capsule 03/02/20 Unknown Rx Cetirizine HCl [Zyrtec 10mg tab] 10 mg PO DAILY #30 tablet 03/02/20 Unknown Rx Prednisone [predniSONE 10 mg 10 mg PO .TAPER #21 tab.ds.pk 03/02/20 Unknown Rx (6-Day Pack, 21 Tabs)] ED Physical Exam - General Limitations: No Limitations General appearance: alert, in no apparent distress - Head Head exam: Present: atraumatic, normocephalic, normal inspection - Eye Eye exam: Present: normal appearance, PERRL, EOMI Pupils: Present: normal accommodation - ENT ENT exam: Present: normal orophraynx, mucous membranes moist, TM's normal bilaterally, normal external ear exam, other (Grossly congested nasal passages) - Neck Neck exam: Present: normal inspection, full ROM. Absent: tenderness, lymphadenopathy - Respiratory Respiratory exam: Present: wheezes (Diffuse coarse wheezes throughout). Absent: respiratory distress, rales, rhonchi, chest wall tenderness, accessory muscle use, prolonged expiratory - Cardiovascular Cardiovascular Exam: Present: regular rate, normal rhythm, normal heart sounds. Absent: systolic murmur, diastolic murmur, rubs, gallop - GI/Abdominal GI/Abdominal exam: Present: soft, normal bowel sounds. Absent: tenderness, gu arding, rebound, hyperactive bowel sounds - Extremities Exam Extremities exam: Present: normal inspection, full ROM, normal capillary refill - Back Exam Back exam: Present: normal inspection, full ROM. Absent: tenderness, CVA tenderness (R), CVA tenderness (L), muscle spasm, paraspinal tenderness, vertebral tenderness - Neurological Exam Neurological exam: Present: alert, oriented X3, CN II-XII intact, normal gait, reflexes normal - Psychiatric Psychiatric exam: Present: normal affect, normal mood - Skin Skin exam: Present: warm, dry, intact, normal color. Absent: rash ED Course Vital Signs 03/02/20 03/02/20 17:12 20:04 Temperature 98.4 F 97.8 F Pulse Rate 87 91 H Respiratory 18 16 Rate Blood Pressure 134/78 117/82 [Right] O2 Sat by Pulse 99 100 Oximetry ED Medical Decision Making - Lab Data Result diagrams: 03/02/20 19:58 03/02/20 19:58 - EKG Data EKG shows normal: sinus rhythm Rate: normal - EKG Data Interpretation: normal EKG 03/02/20 22:50 EKG shows normal sinus rhythm with a ventricular rate of [address] or T wave abnormalities. - Radiology Data Radiology results: report reviewed, image reviewed Findings [facility] [address] [place] [address] XRay Report Signed Patient: DASHAWN ANN MR#: [id number] : 1965 Acct:[id number] Age/Sex: 54 / M ADM Date: 03/02/20 Loc: ED Attending Dr: Ordering Physician: ROSE MARIE MORGAN Date of Service: 03/02/20 Procedure(s): XR chest 1V ap Accession Number(s): [id number] cc: ROSE MARIE MORGAN Fluoro Time In Minutes: CHEST 1 VIEW INDICATION / CLINICAL INFORMATION: dyspnea. COMPARISON: 04/13/2017, 12/12/2019 FINDINGS: SUPPORT DEVICES: None. HEART / MEDIASTINUM: No significant abnormality. LUNGS / PLEURA: No significant pulmonary or pleural abnormality. No pneumothorax. ADDITIONAL FINDINGS: No significant additional findings. IMPRESSION: 1. No acute findings. No interval change. Signer Name: Lilly Shane MD Signed: 03/02/2020 8:15 PM Workstation Name: [id number] Transcribed By: JR Dictated By: Lilly Shane MD Electronically Authenticated By: Lilly Shane MD Signed Date/Time: 03/02/202014 DD/ 13 TD/TT: - Medical Decision Making This is a 54-year-old -[place] male with a history of asthma who presents to the ED with complaint of acute onset persistent shortness of breath, wheezing, persistent dry cough, nasal and sinus congestion for the last 2 days. Patient states that he has been using his albuterol nebulizer and inhalers at home intermittently to help him breathe but states that he ran out of these medications and the shortness of breath and wheezing got worse. Patient states that the last time he used his albuterol nebulizer was 1 hour prior to arrival in the ED. patient states that his latest episode got worse because of exposure to environmental allergens when he went outdoors. In the ED, patient is alert and oriented x3 and is not in distress. The vital signs are stable. Patient received DuoNeb treatment in the ED, also received steroid and treat was treated also with magnesium 2 mg IV x1. Chest x-ray shows no acute cardiopulmonary abnormalities or pneumonitis. Lab test results were reviewed and are all nonactionable. The EKG shows normal sinus rhythm with a ventricular rate of [address] or T wave abnormalities. On reevaluation, patient wheezing and shortness of breath resolved. Patient was discharged home on medications and advised to follow-up with his primary care physician in 3 to 5 days for reev aluation or return to the ED immediately if symptoms get worse. - Differential Diagnosis asthma exacerbation; Pneumonia; bronchitis; URI; CAD Critical care attestation.: If time is entered above; I have spent that time in minutes in the direct care of this critically ill patient, excluding procedure time. ED Disposition Clinical Impression: Acute asthma exacerbation Qualifiers: Asthma severity: mild Asthma persistence: intermittent Qualified Code(s): J45.21 - Mild intermittent asthma with (acute) exacerbation Asthmatic bronchitis with acute exacerbation Qualifiers: Asthma severity: mild Asthma persistence: intermittent Qualified Code(s): J45.21 - Mild intermittent asthma with (acute) exacerbation Disposition: DC-01 TO HOME OR SELFCARE Is pt being admited?: No Does the pt Need Aspirin: No Condition: Stable Instructions: Asthma (ED), Dyspnea (ED), Acute Bacterial Rhinosinusitis (ED), Upper Respiratory Infection (ED) Additional Instructions: Take medication with food, drink plenty of fluids and follow-up with your primary care physician in 3 to 5 days for reevaluation. Return to the ED immediately if symptoms get worse. Prescriptions: Prednisone [predniSONE 10 mg (6-Day Pack, 21 Tabs)] 10 mg PO .TAPER #21 tab.ds.pk Albuterol Mdi (or & Nicu Only) [ProAir HFA Inhaler] 2 puff IH QID PRN #1 inhalation PRN Reason: Shortness Of Breath ALBUTEROL NEB's [Proventil 0.083% NEBS] 3 ml IH Q6H PRN #75 ml PRN Reason: Wheezing Benzonatate [Tessalon Perles] 100 mg PO Q8HR #30 capsule Azithromycin [Zithromax Z-JOEY] 250 mg PO DAILY #6 tablet Cetirizine HCl [Zyrtec 10mg tab] 10 mg PO DAILY #30 tablet Referrals: [facility] [place] [Provider Group] - 3-5 Days Forms: Work/School Release Form(ED) Time of Disposition: 22:50 Print Language: JAPANESE
[2020-03-02 23:24] VITALS: BP 114/84
== END 2020-03-02 23:15 | disposition home or self-care (01) ==
LOC: ED 17:08
DX: J45.901 Unspecified asthma with (acute) exacerbation (principal)
CPT/HCPCS: 36415; 71045; 80053; 83735; 83880; 84100; 84484; 85025; 93005; 96365; 96375; 99284; J1100; J3475

== ENCOUNTER 2020-04-12 10:54 | Emergency (ER) | payer SELFPAY ==
[2020-04-12] MEDS ORDERED: IPRATROPIUM/ALBUTEROL SULFATE 3 ML AMPUL.NEB IH ONE (12:03)
--- NOTE | 2020-04-12 12:09 | Emergency Department Report ---
ED General Adult HPI - General Chief complaint: Adult Asthma Stated complaint: ASTHMA Time Seen by Provider: 04/12/20 11:54 Source: patient Mode of arrival: Ambulatory Limitations: No Limitations - History of Present Illness Initial comments: 54-year-old male states he ran out of his inhaler yesterday. He presents with wheezing. He denies chest pain fever or chills. He states he has an occasional nonproductive cough. -: Gradual, hour(s) Severity scale (0 -10): 0 Associated Symptoms: denies other symptoms Treatments Prior to Arrival: none - Related Data Previous Rx's Medication Instructions Recorded Last Taken Type Cetirizine HCl [ZyrTEC] 10 mg PO DAILY #30 capsule 01/26/20 Unknown Rx Fluticasone [Flonase] 1 spray NS QDAY #1 bottle 01/26/20 Unknown Rx predniSONE [Deltasone] 20 mg PO DAILY #5 tablet 01/26/20 Unknown Rx Azithromycin [Zithromax Z-JOEY] 250 mg PO DAILY #6 tablet 03/02/20 Unknown Rx Benzonatate [Tessalon Perles] 100 mg PO Q8HR #30 capsule 03/02/20 Unknown Rx Cetirizine HCl [Zyrtec 10mg tab] 10 mg PO DAILY #30 tablet 03/02/20 Unknown Rx Prednisone [predniSONE 10 mg 10 mg PO .TAPER #21 tab.ds.pk 03/02/20 Unknown Rx (6-Day Pack, 21 Tabs)] ALBUTEROL NEB's [Proventil 0.083% 3 ml IH Q6H PRN #75 ml 04/12/20 Unknown Rx NEBS] Albuterol Mdi (or & Nicu Only) 2 puff IH QID PRN #1 inhalation 04/12/20 Unknown Rx [ProAir HFA Inhaler] Allergies Allergy/AdvReac Type Severity Reaction Status Date / Time No Known Allergies Allergy Verified 01/26/20 08:18 ED Review of Systems ROS: Stated complaint: ASTHMA Other details as noted in HPI Constitutional: denies: chills, fever Eyes: denies: eye pain, vision change ENT: denies: ear pain, throat pain Respiratory: cough (Nonproductive occasional), wheezing Cardiovascular: denies: chest pain, palpitations Endocrine: no symptoms reported Gastrointestinal: denies: abdominal pain, nausea, diarrhea Genitourinary: denies: urgency, dysuria Musculoskeletal: denies: back pain, joint swelling, arthralgia Skin: denies: rash, lesions Neurological: denies: headache, weakness, paresthesias Psychiatric: denies: anxiety, depression Hematological/Lymphatic: denies: easy bleeding, easy bruising ED Past Medical Hx - Past Medical History Previous Medical History?: Yes Hx Hypertension: No Hx Congestive Heart Failure: No Hx Diabetes: No Hx Asthma: Yes Hx COPD: No Additional medical history: Nasal polyps. intubated x 2 - Surgical History Past Surgical History?: Yes Additional Surgical History: MYRNA - Social History Smoking Status: Never Smoker Substance Use Type: None - Medications Home Medications: Home Medications Medication Instructions Recorded Confirmed Last Taken Type Cetirizine HCl [ZyrTEC] 10 mg PO DAILY #30 capsule 01/26/20 Unknown Rx Fluticasone [Flonase] 1 spray NS QDAY #1 bottle 01/26/20 Unknown Rx predniSONE [Deltasone] 20 mg PO DAILY #5 tablet 01/26/20 Unknown Rx Azithromycin [Zithromax Z-JOEY] 250 mg PO DAILY #6 tablet 03/02/20 Unknown Rx Benzonatate [Tessalon Perles] 100 mg PO Q8HR #30 capsule 03/02/20 Unknown Rx Cetirizine HCl [Zyrtec 10mg tab] 10 mg PO DAILY #30 tablet 03/02/20 Unknown Rx Prednisone [predniSONE 10 mg 10 mg PO .TAPER #21 tab.ds.pk 03/02/20 Unknown Rx (6-Day Pack, 21 Tabs)] ALBUTEROL NEB's [Proventil 0.083% 3 ml IH Q6H PRN #75 ml 04/12/20 Unknown Rx NEBS] Albuterol Mdi (or & Nicu Only) 2 puff IH QID PRN #1 inhalation 04/12/20 Unknown Rx [ProAir HFA Inhaler] ED Physical Exam - General Limitations: No Limitations General appearance: alert, in no apparent distress - Head Head exam: Present: atraumatic, normocephalic - Eye Eye exam: Present: normal appearance. Absent: scleral icterus - ENT ENT exam: Present: mucous membranes moist - Neck Neck exam: Present: normal inspection - Respiratory Respiratory exam: Present: wheezes (End expiratory only). Absent: respiratory distress, accessory muscle use, decreased breath sounds - Cardiovascular Cardiovascular Exam: Present: regular rate, normal rhythm. Absent: systolic murmur, diastolic murmur, rubs, gallop - GI/Abdominal GI/Abdominal exam: Present: soft, normal bowel sounds. Absent: distended, tenderness, guarding, rebound - Rectal Rectal exam: Present: deferred - Extremities Exam Extremities exam: Present: normal inspection - Back Exam Back exam: Present: normal inspection - Neurological Exam Neurological exam: Present: alert, oriented X3 - Psychiatric Psychiatric exam: Present: normal affect, normal mood - Skin Skin exam: Present: warm, dry, intact, normal color. Absent: rash ED Course Vital Signs 04/12/20 11:29 Temperature 98.4 F Pulse Rate 89 Respiratory 18 Rate Blood Pressure 120/79 [Right] O2 Sat by Pulse 97 Oximetry - Reevaluation(s) Reevaluation #1: Patient was given a DuoNeb. He is appropriate for outpatient management. It does not appear that steroids are required. 04/12/20 12:10 Critical care attestation.: If time is entered above; I have spent that time in minutes in the direct care of this critically ill patient, excluding procedure time. ED Disposition Clinical Impression: Asthma exacerbation Qualifiers: Asthma severity: mild Asthma persistence: persistent Qualified Code(s): J45.31 - Mild persistent asthma with (acute) exacerbation Disposition: TO HOME OR SELFCARE Is pt being admited?: No Does the pt Need Aspirin: No Condition: Stable Instructions: Asthma (ED) Additional Instructions: Follow-up with primary care provider. Medication as prescribed. Return as needed. Prescriptions: Albuterol Mdi (or & Nicu Only) [ProAir HFA Inhaler] 2 puff IH QID PRN #1 inhalation PRN Reason: Shortness Of Breath ALBUTEROL NEB's [Proventil 0.083% NEBS] 3 ml IH Q6H PRN #75 ml PRN Reason: Wheezing Referrals: PRIMARY CARE, [Primary Care Provider] - 3-5 Days [facility] [Provider Group] - 3-5 Days Time of Disposition: 12:10
[2020-04-12 13:04] VITALS: BP 133/103
== END 2020-04-12 13:10 | disposition home or self-care (01) ==
LOC: ED 10:54
DX: J45.901 Unspecified asthma with (acute) exacerbation (principal); Z79.899 Other long term (current) drug therapy
CPT/HCPCS: 99282

== ENCOUNTER 2020-06-20 09:30 | Emergency (ER) | payer SELFPAY ==
--- NOTE | 2020-06-20 13:30 | XRay Report ---
CHEST PA AND LATERAL VIEWS INDICATION: shortness of breath. COMPARISON: 05/13/2020 FINDINGS: Support devices: None. Heart: Within normal limits. Lungs/Pleura: No acute pulmonary or pleural findings. IMPRESSION: 1. No acute findings. Signer Name: Peter Hodges MD Signed: 06/20/2020 1:26 PM Workstation Name: [id number]
--- NOTE | 2020-06-20 14:28 | Emergency Department Report ---
ED General Adult HPI - General Chief complaint: Adult Asthma Stated complaint: ASTHMA Time Seen by Provider: 06/20/20 13:04 Source: patient Mode of arrival: Ambulatory Limitations: No Limitations - History of Present Illness Initial comments: 54-year-old -[place] male patient presents with complaints of wheezing and shortness of breath due to asthma exacerbation x this morning. He states he ran out of his albuterol inhaler and his nebulizer solution. He denies any chest pain, cough/hemoptysis, fever/chills/sweats, or swelling in his extrem ities. Patient reports this feels like his normal asthma exacerbation. Severity scale (0 -10): 0 - Related Data Previous Rx's Medication Instructions Recorded Last Taken Type Cetirizine HCl [ZyrTEC] 10 mg PO DAILY #30 capsule 01/26/20 Unknown Rx Fluticasone [Flonase] 1 spray NS QDAY #1 bottle 01/26/20 Unknown Rx predniSONE [Deltasone] 20 mg PO DAILY #5 tablet 01/26/20 Unknown Rx Azithromycin [Zithromax Z-JOEY] 250 mg PO DAILY #6 tablet 03/02/20 Unknown Rx Benzonatate [Tessalon Perles] 100 mg PO Q8HR #30 capsule 03/02/20 Unknown Rx Cetirizine HCl [Zyrtec 10mg tab] 10 mg PO DAILY #30 tablet 03/02/20 Unknown Rx Prednisone [predniSONE 10 mg 10 mg PO .TAPER #21 tab.ds.pk 03/02/20 Unknown Rx (6-Day Pack, 21 Tabs)] ALBUTEROL NEB's [Proventil 0.083% 3 ml IH Q6H PRN #75 ml 04/12/20 Unknown Rx NEBS] Albuterol Mdi (or & Nicu Only) 2 puff IH QID PRN #1 inhalation 04/12/20 Unknown Rx [ProAir HFA Inhaler] ALBUTEROL NEB's [Proventil 0.083% 2.5 mg IH TID PRN #1 box 06/20/20 Unknown Rx NEBS] Albuterol Mdi (or & Nicu Only) 2 puff IH QID PRN #1 inhalation 06/20/20 Unknown Rx [ProAir HFA Inhaler] Prednisone [predniSONE 10 mg 10 mg PO .TAPER #1 tab.ds.pk 06/20/20 Unknown Rx (6-Day Pack, 21 Tabs)] Allergies Allergy/AdvReac Type Severity Reaction Status Date / Time No Known Allergies Allergy Verified 06/20/20 09:35 ED Review of Systems ROS: Stated complaint: ASTHMA Other details as noted in HPI Constitutional: denies: chills, diaphoresis, fever, malaise, weakness Respiratory: shortness of breath, wheezing. denies: cough, orthopnea Cardiovascular: denies: chest pain Gastrointestinal: denies: abdominal pain Skin: denies: change in color Neurological: denies: headache ED Past Medical Hx - Past Medical History Hx Hypertension: No Hx Congestive Heart Failure: No Hx Diabetes: No Hx Asthma: Yes Hx COPD: No Additional medical history: Nasal polyps. intubated x 2 - Surgical History Additional Surgical History: MYRNA - Social History Smoking Status: Never Smoker Substance Use Type: None - Medications Home Medications: Home Medications Medication Instructions Recorded Confirmed Last Taken Type Cetirizine HCl [ZyrTEC] 10 mg PO DAILY #30 capsule 01/26/20 Unknown Rx Fluticasone [Flonase] 1 spray NS QDAY #1 bottle 01/26/20 Unknown Rx predniSONE [Deltasone] 20 mg PO DAILY #5 tablet 01/26/20 Unknown Rx Azithromycin [Zithromax Z-JOEY] 250 mg PO DAILY #6 tablet 03/02/20 Unknown Rx Benzonatate [Tessalon Perles] 100 mg PO Q8HR #30 capsule 03/02/20 Unknown Rx Cetirizine HCl [Zyrtec 10mg tab] 10 mg PO DAILY #30 tablet 03/02/20 Unknown Rx Prednisone [predniSONE 10 mg 10 mg PO .TAPER #21 tab.ds.pk 03/02/20 Unknown Rx (6-Day Pack, 21 Tabs)] ALBUTEROL NEB's [Proventil 0.083% 3 ml IH Q6H PRN #75 ml 04/12/20 Unknown Rx NEBS] Albuterol Mdi (or & Nicu Only) 2 puff IH QID PRN #1 inhalation 04/12/20 Unknown Rx [ProAir HFA Inhaler] ALBUTEROL NEB's [Proventil 0.083% 2.5 mg IH TID PRN #1 box 06/20/20 Unknown Rx NEBS] Albuterol Mdi (or & Nicu Only) 2 puff IH QID PRN #1 inhalation 06/20/20 Unknown Rx [ProAir HFA Inhaler] Prednisone [predniSONE 10 mg 10 mg PO .TAPER #1 tab.ds.pk 06/20/20 Unknown Rx (6-Day Pack, 21 Tabs)] ED Physical Exam - General Limitations: No Limitations General appearance: alert, in no apparent distress - Head Head exam: Present: atraumatic, normocephalic - Eye Eye exam: Present: normal appearance. Absent: scleral icterus - Neck Neck exam: Present: normal inspection - Respiratory Respiratory exam: Present: wheezes (Mild lower lung bases). Absent: respiratory distress, rales, rhonchi, chest wall tenderness, accessory muscle use - Cardiovascular Cardiovascular Exam: Present: regular rate, normal rhythm. Absent: systolic murmur, diastolic murmur, rubs, gallop - GI/Abdominal GI/Abdominal exam: Present: soft. Absent: distended, tenderness - Neurological Exam Neurological exam: Present: alert, oriented X3, normal gait - Psychiatric Psychiatric exam: Present: normal affect, normal mood - Skin Skin exam: Present: warm, dry, intact, normal color. Absent: rash, cyanosis, pallor, ecchymosis ED Course Vital Signs 06/20/20 09:38 Temperature 98.1 F Pulse Rate 97 H Respiratory 20 Rate Blood Pressure 115/73 [Right] O2 Sat by Pulse 98 Oximetry ED Medical Decision Making - Radiology Data Radiology results: report reviewed CHEST PA AND LATERAL VIEWS INDICATION: shortness of breath. COMPARISON: 05/13/2020 FINDINGS: Support devices: None. Heart: Within normal limits. Lungs/Pleura: No acute pulmonary or pleural findings. - Medical Decision Making 54-year-old -[place] male patient presents with complaints of wheezing and shortness of breath due to asthma exacerbation x this morning. He states he ran out of his albuterol inhaler and his nebulizer solution. He denies any chest pain, cough/hemoptysis, fever/chills/sweats, or swelling in his extremities. Patient reports this feels like his normal asthma exacerbation. Mild wheezing noted on exam. Chest x-ray is normal. Offered patient nebulizer treatment, he declines. Refills given of his albuterol and nebulizer solution. Recommend follow-up with primary care in 3 to 5 days. His vitals are normal, he is well-appearing, he is stable for discharge home. Strict return precautions were discussed in detail with patient who verbalizes understanding. Critical care attestation.: If time is entered above; I have spent that time in minutes in the direct care of this critically ill patient, excluding procedure time. ED Disposition Clinical Impression: Asthma exacerbation Qualifiers: Asthma severity: mild Asthma persistence: intermittent Qualified Code(s): J45.21 - Mild intermittent asthma with (acute) exacerbation Disposition: TO HOME OR SELFCARE Is pt being admited?: No Condition: Stable Instructions: Asthma (ED) Prescriptions: Prednisone [predniSONE 10 mg (6-Day Pack, 21 Tabs)] 10 mg PO .TAPER #1 tab.ds.pk Albuterol Mdi (or & Nicu Only) [ProAir HFA Inhaler] 2 puff IH QID PRN #1 inhalation PRN Reason: Shortness Of Breath ALBUTEROL NEB's [Proventil 0.083% NEBS] 2.5 mg IH TID PRN #1 box PRN Reason: Wheezing Referrals: PRIMARY CARE, [Primary Care Provider] - 3-5 Days
[2020-06-20 14:44] VITALS: BP 128/88
== END 2020-06-20 14:47 | disposition home or self-care (01) ==
LOC: ED 09:30
DX: J45.901 Unspecified asthma with (acute) exacerbation (principal); Z79.899 Other long term (current) drug therapy; Z98.890 Other specified postprocedural states
CPT/HCPCS: 71046

== ENCOUNTER 2021-02-11 09:31 | Emergency (ER) | payer SELFPAY ==
--- NOTE | 2021-02-11 10:19 | Emergency Department Report ---
ED Asthma HPI - General Chief Complaint: Chest Pain Stated Complaint: CHEST PAIN, ASTHMA Time Seen by Provider: 02/11/21 10:09 Source: patient Mode of arrival: Ambulatory Limitations: No Limitations - History of Present Illness Initial Comments: Chief complaint: I have asthma. My breasts are swelling. HPI: This is a 55-year-old male with history of persistent asthma intubations x2 requiring several ED encounters who presents with shortness of breath wheezing asthma attack this morning. Also is concerned about breast tenderness and swelling for the last week. Patient's asthma attack improved with albuterol at home. He also took his last dose of prednisone this morning. He takes prednisone as needed as instructed by previous ED provider. He does not have a primary care physician. Patient is currently symptom-free with exception of mild bilateral breast tenderness. He requests refill of albuterol MDI and albuterol nebulizer solution. MD Complaint: "asthma attack", shortness of breath, wheezing -: Gradual, This morning Asthma History: history of frequent attac, history of prior ED visit Severity: mild Associated Symptoms: none - Related Data Previous Rx's Medication Instructions Recorded Last Taken Type Cetirizine HCl [ZyrTEC] 10 mg PO DAILY #30 capsule 01/26/20 Unknown Rx Fluticasone [Flonase] 1 spray NS QDAY #1 bottle 01/26/20 Unknown Rx predniSONE [Deltasone] 20 mg PO DAILY #5 tablet 01/26/20 Unknown Rx Azithromycin [Zithromax Z-JOEY] 250 mg PO DAILY #6 tablet 03/02/20 Unknown Rx Benzonatate [Tessalon Perles] 100 mg PO Q8HR #30 capsule 03/02/20 Unknown Rx Cetirizine HCl [Zyrtec 10mg tab] 10 mg PO DAILY #30 tablet 03/02/20 Unknown Rx Prednisone [predniSONE 10 mg 10 mg PO .TAPER #21 tab.ds.pk 03/02/20 Unknown Rx (6-Day Pack, 21 Tabs)] ALBUTEROL NEB's [Proventil 0.083% 3 ml IH Q6H PRN #75 ml 04/12/20 Unknown Rx NEBS] Albuterol Mdi (or & Nicu Only) 2 puff IH QID PRN #1 inhalation 04/12/20 Unknown Rx [ProAir HFA Inhaler] ALBUTEROL NEB's [Proventil 0.083% 2.5 mg IH TID PRN #1 box 06/20/20 Unknown Rx NEBS] Albuterol Mdi (or & Nicu Only) 2 puff IH QID PRN #1 inhalation 06/20/20 Unknown Rx [ProAir HFA Inhaler] Prednisone [predniSONE 10 mg 10 mg PO .TAPER #1 tab.ds.pk 06/20/20 Unknown Rx (6-Day Pack, 21 Tabs)] ALBUTEROL NEB's [Proventil 0.083% 2.5 mg IH TID PRN #1 box 02/11/21 Unknown Rx NEBS] Albuterol Mdi (or & Nicu Only) 2 puff IH Q6H PRN #8.5 gram 02/11/21 Unknown Rx [ProAir HFA Inhaler] Allergies Allergy/AdvReac Type Severity Reaction Status Date / Time No Known Allergies Allergy Verified 06/20/20 09:35 ED Review of Systems ROS: Stated complaint: CHEST PAIN, ASTHMA Other details as noted in HPI Comment: All other systems reviewed and negative Constitutional: denies: fever, malaise Respiratory: shortness of breath, wheezing Cardiovascular: other (Breast tenderness soreness). denies: chest pain Gastrointestinal: denies: abdominal pain, nausea, vomiting ED Past Medical Hx - Past Medical History Previous Medical History?: Yes Hx Hypertension: No Hx Congestive Heart Failure: No Hx Diabetes: No Hx Asthma: Yes Hx COPD: No Additional medical history: Nasal polyps. intubated x 2 - Surgical History Past Surgical History?: Yes Additional Surgical History: MYRNA - Social History Smoking Status: Never Smoker Substance Use Type: None - Medications Home Medications: Home Medications Medication Instructions Recorded Confirmed Last Taken Type Cetirizine HCl [ZyrTEC] 10 mg PO DAILY #30 capsule 01/26/20 Unknown Rx Fluticasone [Flonase] 1 spray NS QDAY #1 bottle 01/26/20 Unknown Rx predniSONE [Deltasone] 20 mg PO DAILY #5 tablet 01/26/20 Unknown Rx Azithromycin [Zithromax Z-JOEY] 250 mg PO DAILY #6 tablet 03/02/20 Unknown Rx Benzonatate [Tessalon Perles] 100 mg PO Q8HR #30 capsule 03/02/20 Unknown Rx Cetirizine HCl [Zyrtec 10mg tab] 10 mg PO DAILY #30 tablet 03/02/20 Unknown Rx Prednisone [predniSONE 10 mg 10 mg PO .TAPER #21 tab.ds.pk 03/02/20 Unknown Rx (6-Day Pack, 21 Tabs)] ALBUTEROL NEB's [Proventil 0.083% 3 ml IH Q6H PRN #75 ml 04/12/20 Unknown Rx NEBS] Albuterol Mdi (or & Nicu Only) 2 puff IH QID PRN #1 inhalation 04/12/20 Unknown Rx [ProAir HFA Inhaler] ALBUTEROL NEB's [Proventil 0.083% 2.5 mg IH TID PRN #1 box 06/20/20 Unknown Rx NEBS] Albuterol Mdi (or & Nicu Only) 2 puff IH QID PRN #1 inhalation 06/20/20 Unknown Rx [ProAir HFA Inhaler] Prednisone [predniSONE 10 mg 10 mg PO .TAPER #1 tab.ds.pk 06/20/20 Unknown Rx (6-Day Pack, 21 Tabs)] ALBUTEROL NEB's [Proventil 0.083% 2.5 mg IH TID PRN #1 box 02/11/21 Unknown Rx NEBS] Albuterol Mdi (or & Nicu Only) 2 puff IH Q6H PRN #8.5 gram 02/11/21 Unknown Rx [ProAir HFA Inhaler] ED Physical Exam - General Limitations: No Limitations General appearance: alert, in no apparent distress, other (Well-appearing speaking for sentences no acute distress) - Head Head exam: Present: atraumatic, normocephalic - Eye Eye exam: Present: normal appearance - ENT ENT exam: Present: mucous membranes moist - Neck Neck exam: Present: normal inspection, full ROM. Absent: tenderness, meningismus - Respiratory Respiratory exam: Present: normal lung sounds bilaterally. Absent: respiratory distress, wheezes, rales, rhonchi, chest wall tenderness, accessory muscle use, decreased breath sounds, prolonged expiratory - Cardiovascular Cardiovascular Exam: Present: regular rate, normal rhythm, normal heart sounds. Absent: systolic murmur, diastolic murmur, rubs, gallop - GI/Abdominal GI/Abdominal exam: Present: soft, normal bowel sounds. Absent: distended, tenderness, guarding, rebound - Rectal Rectal exam: Present: deferred - Extremities Exam Extremities exam: Present: normal inspection - Back Exam Back exam: Present: normal inspection - Neurological Exam Neurological exam: Present: alert, oriented X3 - Psychiatric Psychiatric exam: Present: normal affect, normal mood - Skin Skin exam: Present: warm, dry, intact, normal color. Absent: rash ED Course Vital Signs 02/11/21 09:44 Temperature 98.3 F Pulse Rate 88 Respiratory 14 Rate Blood Pressure 140/88 O2 Sat by Pulse 97 Oximetry ED Medical Decision Making - EKG Data -: EKG Interpreted by Me EKG shows normal: sinus rhythm, axis, intervals, QRS complexes, ST-T waves Rate: normal - EKG Data Interpretation: normal EKG - Medical Decision Making 1. Asthma exacerbation: Symptoms resolved prior to arrival with home therapy. Prescription provided for MDI and nebulizer solution. 2. Bilateral breast tenderness: Recommend outpatient mammogram ultrasound. Given referral to outpatient medicine physician. Critical care attestation.: If time is entered above; I have spent that time in minutes in the direct care of this critically ill patient, excluding procedure time. ED Disposition Clinical Impression: Medication refill, Asthma, Gynecomastia, male Disposition: DC-01 TO HOME OR SELFCARE Is pt being admited?: No Does the pt Need Aspirin: No Condition: Stable Instructions: Asthma (ED), Gynecomastia, Adult Prescriptions: Albuterol Mdi (or & Nicu Only) [ProAir HFA Inhaler] 2 puff IH Q6H PRN #8.5 gram PRN Reason: Shortness Of Breath ALBUTEROL NEB's [Proventil 0.083% NEBS] 2.5 mg IH TID PRN #1 box PRN Reason: Wheezing Referrals: MISTY CAZARES MD [Staff Physician] - 3-5 Days
[2021-02-11 10:36] VITALS: BP 120/72
--- NOTE | 2021-02-13 19:05 | Electrocardiograph Report ---
[facility] Test Date: 2021-02-11 Test Time: 09:37:15 Pat Name: DASHAWN ANN Department: Room: Gender: M External Relations Manager: JUDITH : 1965 Requested By: ANNA DOOLEY Order Number: [id number] Reading MD: Nic Madrid Measurements Intervals [place] Rate: 95 P: 69 [place]: 148 QRS: 32 QRSD: 87 T: 57 QT: 337 QTc: 424 Interpretive Statements Sinus rhythm No previous ECG available for comparison Electronically Signed On 02-13-2021 19:04:39 EDT by Nic Madrid
== END 2021-02-11 10:36 | disposition home or self-care (01) ==
LOC: ED 09:31
DX: J45.909 Unspecified asthma, uncomplicated (principal); N62 Hypertrophy of breast; Z76.0 Encounter for issue of repeat prescription; Z98.890 Other specified postprocedural states; Z79.899 Other long term (current) drug therapy
CPT/HCPCS: 93005; 99282

== ENCOUNTER 2021-02-25 18:12 | Inpatient (IN) | payer SELFPAY ==
[2021-02-25] MEDS ORDERED: LIP THERAPY VASELINE TP PRN (18:38)
[2021-02-25] MEDS ORDERED: MINERAL OIL/PETROLATUM, WHITE OPHTH OINT 3.5 GM OU PRN (18:38)
[2021-02-25] MEDS ORDERED: SUCCINYLCHOLINE CHLORIDE 200 MG/10 ML INJ MDV IV ONE (18:38)
[2021-02-25] MEDS ORDERED: ETOMIDATE 20 MG/10 ML INJ IV ONE (18:38)
[2021-02-25] MEDS ORDERED: SODIUM CHLORIDE 0.9% 1000 ML 1,000 ML IV ONE (18:41)
--- NOTE | 2021-02-25 18:49 | Emergency Department Report ---
ED Asthma HPI - General Chief Complaint: Dyspnea/Respdistress Stated Complaint: RESPIRATORY ARREST PUI?: No Time Seen by Provider: 02/25/21 18:37 Source: EMS Mode of arrival: Stretcher Limitations: Other - History of Present Illness Initial Comments: Chief complaint: Asthma attack, respiratory failure This is a 54-year-old male with history of severe persistent asthma, intubation x2 who presents with difficulty breathing. EMS arrived. Patient was in severe respiratory distress. He was only able to speak 1-2 word sentences. He was unable to tolerate CPAP. He then became unresponsive. EMS was unable to intubate due to gag reflex. Patient received ventilation to Ambu bag. Due to critical situation, room air oxygen saturation was unable to be obtained. History obtained from EMS and electronic medical record. Upon arrival patient is altered nonverbal. According to electronic medical record, patient is frequently treated at this emergency department for asthma exacerbation. Girlfriend arrived to the ED. She informed me that patient recently traveled from [place] for car. At the dinner table while eating food, he began to cough severely. Breathing treatment did not improve her symptoms. Patient does not smoke cigarettes. Patient does not have health insurance or primary care physician. Previously followed at [facility] currently no access to healthcare. He has been unemployed since July of last year. MD Complaint: "asthma attack", shortness of breath -: This afternoon Asthma History: history of frequent attac, previously intubated (2 previous intubations) Severity: severe Context: none known Associated Symptoms: other (Unable to obtain) Treatments Prior to Arrival: other (EMS treated patient with IV magnesium and Solu-Medrol prior to arrival) - Related Data Previous Rx's Medication Instructions Recorded Last Taken Type Cetirizine HCl [ZyrTEC] 10 mg PO DAILY #30 capsule 01/26/20 Unknown Rx Fluticasone [Flonase] 1 spray NS QDAY #1 bottle 01/26/20 Unknown Rx predniSONE [Deltasone] 20 mg PO DAILY #5 tablet 01/26/20 Unknown Rx Azithromycin [Zithromax Z-JOEY] 250 mg PO DAILY #6 tablet 03/02/20 Unknown Rx Benzonatate [Tessalon Perles] 100 mg PO Q8HR #30 capsule 03/02/20 Unknown Rx Cetirizine HCl [Zyrtec 10mg tab] 10 mg PO DAILY #30 tablet 03/02/20 Unknown Rx Prednisone [predniSONE 10 mg 10 mg PO .TAPER #21 tab.ds.pk 03/02/20 Unknown Rx (6-Day Pack, 21 Tabs)] ALBUTEROL NEB's [Proventil 0.083% 3 ml IH Q6H PRN #75 ml 04/12/20 Unknown Rx NEBS] Albuterol Mdi (or & Nicu Only) 2 puff IH QID PRN #1 inhalation 04/12/20 Unknown Rx [ProAir HFA Inhaler] ALBUTEROL NEB's [Proventil 0.083% 2.5 mg IH TID PRN #1 box 06/20/20 Unknown Rx NEBS] Albuterol Mdi (or & Nicu Only) 2 puff IH QID PRN #1 inhalation 06/20/20 Unknown Rx [ProAir HFA Inhaler] Prednisone [predniSONE 10 mg 10 mg PO .TAPER #1 tab.ds.pk 06/20/20 Unknown Rx (6-Day Pack, 21 Tabs)] ALBUTEROL NEB's [Proventil 0.083% 2.5 mg IH TID PRN #1 box 02/11/21 Unknown Rx NEBS] Albuterol Mdi (or & Nicu Only) 2 puff IH Q6H PRN #8.5 gram 02/11/21 Unknown Rx [ProAir HFA Inhaler] Allergies Allergy/AdvReac Type Severity Reaction Status Date / Time No Known Allergies Allergy Verified 06/20/20 09:35 ED Review of Systems ROS: Stated complaint: RESPIRATORY ARREST Other details as noted in HPI Comment: Unobtainable due to pts medical conditions (Patient altered nonverbal) ED Past Medical Hx - Past Medical History Previous Medical History?: Yes Hx Hypertension: No Hx Congestive Heart Failure: No Hx Diabetes: No Hx Asthma: Yes Hx COPD: No Additional medical history: Nasal polyps. intubated x 2 - Surgical History Past Surgical History?: Yes Additional Surgical History: MYRNA - Family History Family history: hypertension - Social History Smoking Status: Never Smoker Substance Use Type: None - Medications Home Medications: Home Medications Medication Instructions Recorded Confirmed Last Taken Type Cetirizine HCl [ZyrTEC] 10 mg PO DAILY #30 capsule 01/26/20 Unknown Rx Fluticasone [Flonase] 1 spray NS QDAY #1 bottle 01/26/20 Unknown Rx predniSONE [Deltasone] 20 mg PO DAILY #5 tablet 01/26/20 Unknown Rx Azithromycin [Zithromax Z-JOEY] 250 mg PO DAILY #6 tablet 03/02/20 Unknown Rx Benzonatate [Tessalon Perles] 100 mg PO Q8HR #30 capsule 03/02/20 Unknown Rx Cetirizine HCl [Zyrtec 10mg tab] 10 mg PO DAILY #30 tablet 03/02/20 Unknown Rx Prednisone [predniSONE 10 mg 10 mg PO .TAPER #21 tab.ds.pk 03/02/20 Unknown Rx (6-Day Pack, 21 Tabs)] ALBUTEROL NEB's [Proventil 0.083% 3 ml IH Q6H PRN #75 ml 04/12/20 Unknown Rx NEBS] Albuterol Mdi (or & Nicu Only) 2 puff IH QID PRN #1 inhalation 04/12/20 Unknown Rx [ProAir HFA Inhaler] ALBUTEROL NEB's [Proventil 0.083% 2.5 mg IH TID PRN #1 box 06/20/20 Unknown Rx NEBS] Albuterol Mdi (or & Nicu Only) 2 puff IH QID PRN #1 inhalation 06/20/20 Unknown Rx [ProAir HFA Inhaler] Prednisone [predniSONE 10 mg 10 mg PO .TAPER #1 tab.ds.pk 06/20/20 Unknown Rx (6-Day Pack, 21 Tabs)] ALBUTEROL NEB's [Proventil 0.083% 2.5 mg IH TID PRN #1 box 02/11/21 Unknown Rx NEBS] Albuterol Mdi (or & Nicu Only) 2 puff IH Q6H PRN #8.5 gram 02/11/21 Unknown Rx [ProAir HFA Inhaler] ED Physical Exam - General Limitations: Altered Mental Status, Other General appearance: lethargic, other (GCS 3, accessory muscle use, nonverbal,) - Head Head exam: Present: atraumatic, normocephalic - Eye Eye exam: Present: other (Sluggish pinpoint pupils). Absent: scleral icterus, conjunctival injection - ENT ENT exam: Present: mucous membranes moist - Neck Neck exam: Present: normal inspection, full ROM - Respiratory Respiratory exam: Present: respiratory distress, wheezes, accessory muscle use, prolonged expiratory, other (Inspiratory expiratory wheezes decreased air movement). Absent: rales, rhonchi - Cardiovascular Cardiovascular Exam: Present: normal rhythm, normal heart sounds. Absent: bradycardia, systolic murmur, diastolic murmur, rubs, gallop - GI/Abdominal GI/Abdominal exam: Present: soft, normal bowel sounds, other (Abdominal retractions, sternal retractions). Absent: distended, tenderness, guarding, r ebound - Rectal Rectal exam: Present: deferred - Extremities Exam Extremities exam: Present: normal inspection - Neurological Exam Neurological exam: Present: altered, other (No response to noxious stimuli sternal rub) - Psychiatric Psychiatric exam: Present: other (GCS 3) - Skin Skin exam: Present: warm, dry, intact, normal color. Absent: rash ED Course Vital Signs 02/25/21 02/25/21 02/25/21 18:37 18:59 19:00 Temperature Pulse Rate 99 H 105 H 104 H Pulse Rate [ Anterior Bilateral Throughout] Respiratory 21 21 Rate Respiratory Rate [Anterior Bilateral Throughout] Blood Pressure 136/76 89/53 Blood Pressure [Right] O2 Sat by Pulse 99 100 Oximetry 02/25/21 02/25/21 02/25/21 19:08 19:15 19:31 Temperature 97.5 F L Pulse Rate 100 H 124 H 100 H Pulse Rate [ Anterior Bilateral Throughout] Respiratory 16 24 18 Rate Respiratory Rate [Anterior Bilateral Throughout] Blood Pressure 85/51 102/58 Blood Pressure 89/53 [Right] O2 Sat by Pulse 100 100 99 Oximetry 02/25/21 02/25/21 02/25/21 19:45 19:55 20:00 Temperature Pulse Rate 101 H 104 H Pulse Rate [ Anterior Bilateral Throughout] Respiratory 20 Rate Respiratory Rate [Anterior Bilateral Throughout] Blood Pressure 106/69 106/69 Blood Pressure [Right] O2 Sat by Pulse 97 97 97 Oximetry 02/25/21 02/25/21 02/25/21 20:01 20:04 20:15 Temperature Pulse Rate 86 84 Pulse Rate [ 95 H Anterior Bilateral Throughout] Respiratory 20 20 Rate Respiratory 20 Rate [Anterior Bilateral Throughout] Blood Pressure 91/64 102/58 Blood Pressure [Right] O2 Sat by Pulse 99 97 Oximetry 02/25/21 20:31 Temperature Pulse Rate 91 H Pulse Rate [ Anterior Bilateral Throughout] Respiratory 20 Rate Respiratory Rate [Anterior Bilateral Throughout] Blood Pressure 110/70 Blood Pressure [Right] O2 Sat by Pulse 95 Oximetry - Reevaluation(s) Reevaluation #1: 02/25/21 19:51 I reviewed ABG results with respiratory therapist. Respiratory rate increased to 20. Reevaluation #2: 02/25/21 20:14 Two nurses informed me that the propofol caused hypotension. Patient began moving all 4 extremities. He attempted to pull ETT. I requested to decrease the propofol dosing. I have ordered Versed infusion. Soft tissue restraints ordered. Reevaluation #3: 02/25/21 20:16 Girlfriend and daughter came to the emergency department. I gave him update on patient's status. - ABG Interpretation Ph: 7.25 PCO2: 53 PO2: 335 Interpretation: respiratory acidosis - Intubation Time Out Performed: Yes Sedative: Etomidate Mg Given: 20 Paralytic: Succinylcholine Mg Given: 150 Laryngoscope: Anupam Size: 4 ET Tube Size: 7.5 Tube Secured Depth (cm): 23 Tube Secured Location: lips Tube Placement Confirmation: visualized tube passing t Patient Tolerated Procedure: well Intubation Complications: none ED Medical Decision Making - Lab Data Result diagrams: 02/25/21 19:03 02/25/21 19:03 - Medical Decision Making Upon arrival, patient was obtunded. Oxygen saturation 85% with bag mask valve ventilation. I applied nonrebreather in high flow nasal cannula. With preoxygenation, highest oxygen saturation achieved 93%. Due to respiratory failure with decreased level consciousness, patient required emergent intubation. Bag patient through ETT under intubation for approximately 8 minutes while respiratory therapist with found ventilator. Patient had extrem saud long respiratory phase. I managed the ventilator settings with respiratory therapist. Clinical impression: Status asthmaticus, acute respiratory failure hypoxia with hypercapnia, Decreased level consciousness attributed to severe hypoxia and presumably hypercapnia. After intubation patient was attempting to pull ETT. He was moving all 4 extremities. cbc bmp cxr unremarkable, ETT in appropriate position patient is admitted to hospitalist service in improved fair condition Critical Care Time: Yes Critical care time in (mins) excluding proc time.: 40 Critical care attestation.: If time is entered above; I have spent that time in minutes in the direct care of this critically ill patient, excluding procedure time. 40 minutes of critical care time excluding procedures were used in the care of the patient. I heard the EMS report. I asked the charge nurse to contact respiratory therapist on her to prepare for intubation. I was in the room upon patient's arrival. I came immediately to the bedside upon patient's arrival. I obtained history from EMS at the bedside. Patient required emergent intubation after preoxygenation. I discussed treatment plan with the nursing team members. I reviewed electronic record. Patient required multiple interventions and reassessments. ED Disposition Clinical Impression: Acute respiratory failure with hypoxia and hypercapnia, Status asthmaticus Disposition: OP ADMIT IP TO THIS HOSP Is pt being admited?: Yes Does the pt Need Aspirin: No Condition: Fair
[2021-02-25] MEDS ORDERED: cefTRIAXone/NS 1 GM/50 ML 1 GM/50 ML BAG IV ONE (18:50)
[2021-02-25] MEDS ORDERED: AZITHROMYCIN/NS 500 MG/250 ML 500 MG/250 ML BAG IV ONE (18:50)
[2021-02-25] MEDS ORDERED: IPRATROPIUM 0.02% NEBU 2.5 ML IH ONE (18:50)
[2021-02-25] MEDS ORDERED: ALBUTEROL 2.5 MG/3 ML NEBU IH ONE (18:50)
[2021-02-25] MEDS ORDERED: MIDAZOLAM 5 MG/5 ML INJ MDV IV NR ×2 (19:00→20:00)
--- NOTE | 2021-02-25 19:10 | XRay Report ---
CHEST 1 VIEW 02/25/2021 6:00 PM INDICATION / CLINICAL INFORMATION: ETT placement. COMPARISON: 06/20/2020. FINDINGS: SUPPORT DEVICES: Endotracheal tube and NG tube in satisfactory position. HEART / MEDIASTINUM: No significant abnormality. LUNGS / PLEURA: Right lung clear. Minimal atelectasis left base. No pneumothorax. ADDITIONAL FINDINGS: No significant additional findings. IMPRESSION: Minimal atelectasis left base. Signer Name: Arci Lazo MD Signed: 02/25/2021 7:05 PM Workstation Name: [id number]
[2021-02-25] MEDS ORDERED: SUCCINYLCHOLINE CHLORIDE 200 MG/10 ML INJ MDV ONE (19:23)
[2021-02-25] MEDS ORDERED: ONDANSETRON 4 MG/2 ML INJ ONE (19:24)
[2021-02-25 19:26] LABS: Basophils # (Auto) 0.2 K/mm3 (0.0-0.1); Basophils % (Auto) 1.8 % (0.0-1.8); Eosinophils # (Auto) 0.2 K/mm3 (0.0-0.4); Eosinophils % (Auto) 1.6 % (0.0-4.3); Lymphocytes # (Auto) 3.1 K/mm3 (1.2-5.4); Lymphocytes % (Auto) 27.4 % (13.4-35.0); Mean Corpuscular HGB Conc 31 % (32-34); Mean Corpuscular Volume 73 fl (84-94); Monocytes # (Auto) 0.3 K/mm3 (0.0-0.8); Monocytes % (Auto) 2.9 % (0.0-7.3); Platelet Count 201 K/mm3 (140-440); Red Blood Count 5.07 M/mm3 (3.65-5.03); Red Cell Distribution Width 15.1 % (13.2-15.2)
[2021-02-25 19:28] LABS: Hematocrit 37.1 % (35.5-45.6); Hemoglobin 11.3 gm/dl (11.8-15.2)
[2021-02-25 19:36] LABS: Alanine Aminotransferase 26 units/L (7-56); Albumin 3.8 g/dL (3.9-5); BUN/Creatinine Ratio 12; Blood Urea Nitrogen 12 mg/dL (9-20); Calcium 8.3 mg/dL (8.4-10.2); Hemolysis Index 31
[2021-02-25] MEDS ORDERED: ONDANSETRON 4 MG/2 ML INJ IV ONE (19:45)
[2021-02-25] MEDS ORDERED: MIDAZOLAM 2 MG/2 ML INJ IV PRN (20:15)
[2021-02-25] MEDS ORDERED: MIDAZOLAM 100 MG in SODIUM CHLORIDE 0.9% 80 ML IV SCH (21:00)
[2021-02-25] MEDS ORDERED: ONDANSETRON 4 MG/2 ML INJ IV PRN (22:28)
[2021-02-25] MEDS ORDERED: ACETAMINOPHEN 650 MG RECT SUPP PR PRN (22:28)
[2021-02-25] MEDS ORDERED: MORPHINE 2 MG/1 ML INJ IV PRN (22:28)
--- NOTE | 2021-02-25 22:37 | History and Physical Report ---
History of Present Illness Date of examination: 02/25/21 Date of admission: 02/25/21 21:52 Chief complaint: Shortness of Breath History of present illness: 35-year-old -[place] male with known history of severe persistent asthma status post intubation twice in the past presents to the emergency room via EMS today with difficulty breathing. Patient was initially placed on CPAP but on was unable to tolerate it. Attempts were made by EMS to intubate patient without success therefore presented in the emergency room with Ambu bag. Upon arrival in the emergency room patient was found to be altered, barely responsive and subsequently intubated. Most of the history was gotten from the ER staff patient is already intubated and sedated. According to information gotten from girlfriend patient was said to have traveled from [place] by road, however at the dinner table earlier in the evening, he started coughing and became short of breath. Work-up in the emergency room today, chest x-ray reveals minimal atelectasis in the left base. Labs significant for leukocytosis of 11.4 He had a mild hypokalemia of 3.5. Patient being admitted with severe asthma exacerbation. Past History Past Medical History: other (Asthma, s/p intubation X2,Nasal Polyps) Past Surgical History: Other (MYRNA) Social history: denies: smoking, alcohol abuse Family history: hypertension Medications and Allergies Allergies Allergy/AdvReac Type Severity Reaction Status Date / Time No Known Allergies Allergy Verified 06/20/20 09:35 Home Medications Medication Instructions Recorded Confirmed Last Taken Type Cetirizine HCl [ZyrTEC] 10 mg PO DAILY #30 capsule 01/26/20 Unknown Rx Fluticasone [Flonase] 1 spray NS QDAY #1 bottle 01/26/20 Unknown Rx predniSONE [Deltasone] 20 mg PO DAILY #5 tablet 01/26/20 Unknown Rx Azithromycin [Zithromax Z-JOEY] 250 mg PO DAILY #6 tablet 03/02/20 Unknown Rx Benzonatate [Tessalon Perles] 100 mg PO Q8HR #30 capsule 03/02/20 Unknown Rx Cetirizine HCl [Zyrtec 10mg tab] 10 mg PO DAILY #30 tablet 03/02/20 Unknown Rx Prednisone [predniSONE 10 mg 10 mg PO .TAPER #21 tab.ds.pk 03/02/20 Unknown Rx (6-Day Pack, 21 Tabs)] ALBUTEROL NEB's [Proventil 0.083% 3 ml IH Q6H PRN #75 ml 04/12/20 Unknown Rx NEBS] Albuterol Mdi (or & Nicu Only) 2 puff IH QID PRN #1 inhalation 04/12/20 Unknown Rx [ProAir HFA Inhaler] ALBUTEROL NEB's [Proventil 0.083% 2.5 mg IH TID PRN #1 box 06/20/20 Unknown Rx NEBS] Albuterol Mdi (or & Nicu Only) 2 puff IH QID PRN #1 inhalation 06/20/20 Unknown Rx [ProAir HFA Inhaler] Prednisone [predniSONE 10 mg 10 mg PO .TAPER #1 tab.ds.pk 06/20/20 Unknown Rx (6-Day Pack, 21 Tabs)] ALBUTEROL NEB's [Proventil 0.083% 2.5 mg IH TID PRN #1 box 02/11/21 Unknown Rx NEBS] Albuterol Mdi (or & Nicu Only) 2 puff IH Q6H PRN #8.5 gram 02/11/21 Unknown Rx [ProAir HFA Inhaler] Active Meds: Active Medications Acetaminophen (Acetaminophen 650 Mg Rect Supp) 650 mg [place] Q6H PRN PRN Reason: Pain MILD(1-3)/Fever >100.5/HERRING Albuterol/Ipratropium (Ipratropium/Albuterol Sulfate 3 Ml Ampul.Neb) 1 ampul IH Q6HRT DANYELLE Famotidine (Famotidine 20 Mg/2 Ml Inj) 20 mg IV BID DANYELLE Hydrophilic Ointment (Lip Therapy Vaseline) 1 applic TP Q2HR PRN PRN Reason: Dry Lips Propofol (Diprivan 10 Mg/Ml) 1,000 mg in 100 mls @ 3.21 mls/hr IV TITR DANYELLE; Protocol Last Admin: 02/25/21 18:37 Dose: 25 mcg/kg/min, 16.05 mls/hr Documented by: Midazolam HCl 100 mg/ Sodium (Chloride) 100 mls @ 2 mls/hr IV TITR DANYELLE; Protocol Last Admin: 02/25/21 21:18 Dose: 2 mg/hr, 2 mls/hr Documented by: Sodium Chloride (Nacl 0.9% 1000 Ml) 1,000 mls @ 75 mls/hr IV DIRECT DANYELLE Methylprednisolone Sodium Succinate (Methylprednisolone Sod Succinate 40 Mg/1 Ml Inj) 40 mg IV Q8HR DANYELLE Midazolam HCl (Midazolam 5 Mg/5 Ml Inj Mdv) 5 mg IV ONCE NR Stop: 02/25/21 23:59 Midazolam HCl (Midazolam 5 Mg/5 Ml Inj Mdv) 5 mg IV ONCE NR Stop: 02/26/21 08:00 Last Admin: 02/25/21 20:23 Dose: 5 mg Documented by: Midazolam HCl (Midazolam 2 Mg/2 Ml Inj) 2 mg IV Q10MIN PRN PRN Reason: Sedation Morphine Sulfate (Morphine 2 Mg/1 Ml Inj) 2 mg IV Q4H PRN PRN Reason: Pain, Moderate (4-6) Multi-Ingred Cream/Lotion/Oil/Oint (Mineral Oil/Petrolatum, White Ophth Oint 3.5 Gm) 1 applic OU Q4HR PRN PRN Reason: Dry Eye(s) Ondansetron HCl (Ondansetron 4 Mg/2 Ml Inj) 4 mg IV Q8H PRN PRN Reason: Nausea And Vomiting Senna/Docusate Sodium (Sennosides/Docusate Sodium 8.6/50 Mg Tab) 1 tab FEEDTUBE BID DANYELLE Sodium Chloride (Sodium Chloride 0.9% 10 Ml Flush Syringe) 10 ml IV BID DANYELLE Sodium Chloride (Sodium Chloride 0.9% 10 Ml Flush Syringe) 10 ml IV PRN PRN PRN Reason: LINE FLUSH Review of Systems Constitutional: no fever, no chills Ears, nose, mouth and throat: no nasal congestion, no sore throat Cardiovascular: no chest pain, no palpitations Respiratory: cough, shortness of breath, wheezing Gastrointestinal: no abdominal pain, no nausea, no vomiting, no diarrhea Genitourinary Male: no dysuria, no hematuria, no nocturia Musculoskeletal: no neck pain, no low back pain Integumentary: no rash, no pruritis Neurological: no headaches, no confusion Psychiatric: no anxiety, no depression Endocrine: no polyphagia, no polyuria, no nocturia Exam - Constitutional Vitals: Temp Pulse Resp BP Pulse Ox 97.5 F L 91 H 20 110/70 95 02/25/21 19:08 02/25/21 20:31 02/25/21 20:31 02/25/21 20:31 02/25/21 20:31 General appearance: Present: other (Intubated and sedaited) - EENT Eyes: Present: PERRL, EOM intact. Absent: scleral icterus ENT: hearing intact, clear oral mucosa, dentition normal - Neck Neck: Present: supple, normal ROM - Respiratory Respiratory effort: normal Respiratory: bilateral: diminished - Cardiovascular Rhythm: regular Heart Sounds: Present: S1 & S2. Absent: gallop, systolic murmur, diastolic murm ur, rub - Extremities Extremities: no ischemia, pulses intact, pulses symmetrical, No edema, normal temperature, normal color, Full ROM Peripheral Pulses: within normal limits - Abdominal General gastrointestinal: Present: soft, non-tender, non-distended, normal bowel sounds. Absent: mass - Integumentary Integumentary: Present: clear, warm, dry. Absent: rash - Musculoskeletal Musculoskeletal: strength equal bilaterally - Psychiatric Psychiatric: cooperative - Neurologic Neurologic: CNII-XII intact Results - Labs CBC & Chem 7: 02/25/21 19:03 02/25/21 19:03 Labs: Abnormal lab results 02/25/21 02/25/21 02/25/21 Range/Units 18:43 19:03 19:03 WBC 11.4 H (4.5-11.0) K/mm3 RBC 5.07 H (3.65-5.03) M/mm3 Hgb 11.3 L (11.8-15.2) gm/dl MCV 73 L (84-94) fl MCH 22 L (28-32) pg MCHC 31 L (32-34) % Baso # (Auto) 0.2 H (0.0-0.1) K/mm3 ABG pH 7.182 L (7.320-7.450) POC ABG pCO2 63.3 H (32.0-48.0) mmHg POC ABG pO2 61.4 L (83-108) mmHg ABG Hemoglobin 11.3 L (12.0-17.5) ABG Oxyhemoglobin 85.0 L (94-98) ABG Chloride 112.0 H (98-107) mmol/L ABG Glucose 190 H (65-95) mg/dL Potassium 3.5 L (3.6-5.0) mmol/L Glucose 223 H (75-100) mg/dL Calcium 8.3 L (8.4-10.2) mg/dL Albumin 3.8 L (3.9-5) g/dL Arterial Blood Glucose 190 H (65-95) mg/dL Arterial Blood Ionized Calcium 4.3 L (4.6-5.3) mg/dL 02/25/21 Range/Units 19:40 WBC (4.5-11.0) K/mm3 RBC (3.65-5.03) M/mm3 Hgb (11.8-15.2) gm/dl MCV (84-94) fl MCH (28-32) pg MCHC (32-34) % Baso # (Auto) (0.0-0.1) K/mm3 ABG pH 7.249 L (7.320-7.450) POC ABG pCO2 53.8 H (32.0-48.0) mmHg POC ABG pO2 335.2 H (83-108) mmHg ABG Hemoglobin (12.0-17.5) ABG Oxyhemoglobin 99.0 H (94-98) ABG Chloride 110.0 H (98-107) mmol/L ABG Glucose 181 H (65-95) mg/dL Potassium (3.6-5.0) mmol/L Glucose (75-100) mg/dL Calcium (8.4-10.2) mg/dL Albumin (3.9-5) g/dL Arterial Blood Glucose 181 H (65-95) mg/dL Arterial Blood Ionized Calcium 4.5 L (4.6-5.3) mg/dL Assessment and Plan - Patient Problems (1) Status asthmaticus Current Visit: Yes Status: Acute Plan to address problem: Patient has been placed on nebulizing treatments and IV steroid. Consult placed to pulmonology for evaluation. He has been intubated x 2 in the past. (2) Acute respiratory failure with hypoxia and hypercapnia Current Visit: Yes Status: Resolved Plan to address problem: Secondary to the asthma exacerbation. Patient currently intubated and sedated. (3) Hypokalemia Current Visit: Yes Status: Acute Plan to address problem: Potassium will be repleted and will monitor chemistry. (4) DVT prophylaxis Current Visit: No Status: Acute Plan to address problem: Patient placed on subcutaneous Lovenox. (5) Full code status Current Visit: Yes Status: Acute Plan to address problem: Patient is full code.
[2021-02-26] MEDS: SODIUM CHLORIDE 0.9% 1000 ML 1,000 ML IV SCH ×2 (01:30→12:14)
[2021-02-26] MEDS: IPRATROPIUM/ALBUTEROL SULFATE 3 ML AMPUL.NEB IH SCH ×4 (03:40→21:11)
--- NOTE | 2021-02-26 04:32 | XRay Report ---
XR chest 1V ap INDICATION / CLINICAL INFORMATION: follow up respiratory failure. COMPARISON: Radiograph from yesterday. FINDINGS: SUPPORT DEVICES: Unchanged. HEART / MEDIASTINUM: Unchanged. LUNGS / PLEURA: Lung parenchyma is not significantly changed. No pneumothorax. ADDITIONAL FINDINGS: No significant additional findings. IMPRESSION: 1. No significant interval change. Signer Name: Ambrose Lee MD Signed: 02/26/2021 4:27 AM Workstation Name: [id number]
[2021-02-26] MEDS: methylPREDNISolone Sod Succinate 40 MG/1 ML INJ IV SCH ×3 (06:28→22:06)
--- NOTE | 2021-02-26 08:23 | Progress Note ---
Subjective Date of service: 02/26/21 Interval history: 35-year-old -Turkmen male with known history of severe persistent asthma status post intubation twice in the past presents to the emergency room via EMS today with difficulty breathing. Patient was initially placed on CPAP but on was unable to tolerate it. Attempts were made by EMS to intubate patient without success therefore presented in the emergency room with Ambu bag. Upon arrival in the emergency room patient was found to be altered, barely responsive and subsequently intubated. Most of the history was gotten from the ER staff patient is already intubated and sedated. According to information gotten from girlfriend patient was said to have traveled from [place] by road, however at the dinner table earlier in the evening, he started coughing and became short of breath. Work-up in the emergency room today, chest x-ray reveals minimal atelectasis in the left base. Labs significant for leukocytosis of 11.4 He had a mild hypokalemia of 3.5. Patient being admitted with severe asthma exacerbation. Objective - Constitutional Vitals: Vital Signs - 12hr 02/25/21 02/25/21 02/25/21 20:31 20:45 21:01 Temperature Pulse Rate 91 H 86 96 H Pulse Rate [ Anterior Bilateral Throughout] Pulse Rate [ From Monitor] Respiratory 20 18 13 Rate Respiratory Rate [Anterior Bilateral Throughout] Blood Pressure 110/70 91/64 103/63 O2 Sat by Pulse 95 98 97 Oximetry 02/25/21 02/25/21 02/25/21 21:15 21:31 21:45 Temperature Pulse Rate 85 86 86 Pulse Rate [ Anterior Bilateral Throughout] Pulse Rate [ From Monitor] Respiratory 20 20 20 Rate Respiratory Rate [Anterior Bilateral Throughout] Blood Pressure 103/63 113/66 113/66 O2 Sat by Pulse 95 98 99 Oximetry 02/25/21 02/25/21 02/25/21 22:01 22:15 22:31 Temperature Pulse Rate 83 80 89 Pulse Rate [ Anterior Bilateral Throughout] Pulse Rate [ From Monitor] Respiratory 20 20 17 Rate Respiratory Rate [Anterior Bilateral Throughout] Blood Pressure 106/68 106/68 107/74 O2 Sat by Pulse 99 99 97 Oximetry 02/25/21 02/25/21 02/25/21 22:45 23:01 23:15 Temperature Pulse Rate 81 79 89 Pulse Rate [ Anterior Bilateral Throughout] Pulse Rate [ From Monitor] Respiratory 20 20 17 Rate Respiratory Rate [Anterior Bilateral Throughout] Blood Pressure 107/74 127/84 127/84 O2 Sat by Pulse 98 98 99 Oximetry 02/25/21 02/25/21 02/25/21 23:30 23:31 23:37 Temperature Pulse Rate 91 H 88 87 Pulse Rate [ Anterior Bilateral Throughout] Pulse Rate [ From Monitor] Respiratory 20 20 Rate Respiratory Rate [Anterior Bilateral Throughout] Blood Pressure 141/99 141/99 141/99 O2 Sat by Pulse 100 100 100 Oximetry 02/25/21 02/26/21 02/26/21 23:40 00:00 00:35 Temperature Pulse Rate 86 85 Pulse Rate [ Anterior Bilateral Throughout] Pulse Rate [ 85 From Monitor] Respiratory 20 Rate Respiratory Rate [Anterior Bilateral Throughout] Blood Pressure 141/99 O2 Sat by Pulse 100 99 Oximetry 02/26/21 02/26/21 02/26/21 00:49 03:56 03:59 Temperature 96.2 F L Pulse Rate 97 H Pulse Rate [ 100 H Anterior Bilateral Throughout] Pulse Rate [ From Monitor] Respiratory Rate Respiratory 20 Rate [Anterior Bilateral Throughout] Blood Pressure 105/67 O2 Sat by Pulse 100 Oximetry 02/26/21 02/26/21 02/26/21 04:00 04:19 04:54 Temperature 98.2 F Pulse Rate 108 H 100 H Pulse Rate [ Anterior Bilateral Throughout] Pulse Rate [ 108 H From Monitor] Respiratory 20 Rate Respiratory Rate [Anterior Bilateral Throughout] Blood Pressure O2 Sat by Pulse 99 97 Oximetry 02/26/21 02/26/21 02/26/21 05:02 05:14 05:21 Temperature Pulse Rate 104 H 104 H 105 H Pulse Rate [ Anterior Bilateral Throughout] Pulse Rate [ From Monitor] Respiratory 17 20 11 L Rate Respiratory Rate [Anterior Bilateral Throughout] Blood Pressure 100/63 O2 Sat by Pulse 98 99 99 Oximetry 02/26/21 02/26/21 02/26/21 05:30 05:41 05:51 Temperature Pulse Rate 102 H 101 H 104 H Pulse Rate [ Anterior Bilateral Throughout] Pulse Rate [ From Monitor] Respiratory 17 9 L 8 L Rate Respiratory Rate [Anterior Bilateral Throughout] Blood Pressure 102/62 102/62 102/62 O2 Sat by Pulse 97 98 97 Oximetry 02/26/21 02/26/21 02/26/21 06:00 06:11 06:21 Temperature Pulse Rate 104 H 106 H 104 H Pulse Rate [ Anterior Bilateral Throughout] Pulse Rate [ From Monitor] Respiratory 15 20 20 Rate Respiratory Rate [Anterior Bilateral Throughout] Blood Pressure 117/77 117/77 117/77 O2 Sat by Pulse 97 96 Oximetry 02/26/21 02/26/21 02/26/21 06:30 06:41 06:51 Temperature Pulse Rate 102 H 105 H 103 H Pulse Rate [ Anterior Bilateral Throughout] Pulse Rate [ From Monitor] Respiratory 20 20 20 Rate Respiratory Rate [Anterior Bilateral Throughout] Blood Pressure 132/88 132/88 132/88 O2 Sat by Pulse 99 97 Oximetry 02/26/21 02/26/21 02/26/21 07:00 07:11 07:21 Temperature Pulse Rate 105 H 106 H 109 H Pulse Rate [ Anterior Bilateral Throughout] Pulse Rate [ From Monitor] Respiratory 20 20 20 Rate Respiratory Rate [Anterior Bilateral Throughout] Blood Pressure 112/71 112/71 112/71 O2 Sat by Pulse 94 97 97 Oximetry 02/26/21 02/26/21 02/26/21 07:30 08:00 08:19 Temperature 98.7 F Pulse Rate 106 H 105 H Pulse Rate [ Anterior Bilateral Throughout] Pulse Rate [ From Monitor] Respiratory 20 Rate Respiratory Rate [Anterior Bilateral Throughout] Blood Pressure 116/72 108/68 O2 Sat by Pulse 97 Oximetry 02/26/21 08:23 Temperature Pulse Rate Pulse Rate [ 106 H Anterior Bilateral Throughout] Pulse Rate [ From Monitor] Respiratory Rate Respiratory 20 Rate [Anterior Bilateral Throughout] Blood Pressure O2 Sat by Pulse Oximetry - Labs CBC & Chem 7: 02/25/21 19:03 02/25/21 19:03 Labs: Abnormal lab results 02/25/21 02/25/21 02/25/21 Range/Units 18:43 19:03 19:03 WBC 11.4 H (4.5-11.0) K/mm3 RBC 5.07 H (3.65-5.03) M/mm3 Hgb 11.3 L (11.8-15.2) gm/dl MCV 73 L (84-94) fl MCH 22 L (28-32) pg MCHC 31 L (32-34) % Baso # (Auto) 0.2 H (0.0-0.1) K/mm3 ABG pH 7.182 L (7.320-7.450) POC ABG pCO2 63.3 H (32.0-48.0) mmHg POC ABG pO2 61.4 L (83-108) mmHg ABG Hemoglobin 11.3 L (12.0-17.5) ABG Oxyhemoglobin 85.0 L (94-98) ABG Chloride 112.0 H (98-107) mmol/L ABG Glucose 190 H (65-95) mg/dL Potassium 3.5 L (3.6-5.0) mmol/L Glucose 223 H (75-100) mg/dL POC Glucose (70-105) mg/dL Calcium 8.3 L (8.4-10.2) mg/dL Albumin 3.8 L (3.9-5) g/dL Arterial Blood Glucose 190 H (65-95) mg/dL Arterial Blood Ionized Calcium 4.3 L (4.6-5.3) mg/dL 02/25/21 02/26/21 02/26/21 Range/Units 19:40 00:16 03:27 WBC (4.5-11.0) K/mm3 RBC (3.65-5.03) M/mm3 Hgb (11.8-15.2) gm/dl MCV (84-94) fl MCH (28-32) pg MCHC (32-34) % Baso # (Auto) (0.0-0.1) K/mm3 ABG pH 7.249 L (7.320-7.450) POC ABG pCO2 53.8 H (32.0-48.0) mmHg POC ABG pO2 335.2 H 140.5 H (83-108) mmHg ABG Hemoglobin (12.0-17.5) ABG Oxyhemoglobin 99.0 H 98.2 H (94-98) ABG Chloride 110.0 H 112.0 H (98-107) mmol/L ABG Glucose 181 H 176 H (65-95) mg/dL Potassium (3.6-5.0) mmol/L Glucose (75-100) mg/dL POC Glucose 143 H (70-105) mg/dL Calcium (8.4-10.2) mg/dL Albumin (3.9-5) g/dL Arterial Blood Glucose 181 H 176 H (65-95) mg/dL Arterial Blood Ionized Calcium 4.5 L (4.6-5.3) mg/dL 02/26/21 Range/Units 06:44 WBC (4.5-11.0) K/mm3 RBC (3.65-5.03) M/mm3 Hgb (11.8-15.2) gm/dl MCV (84-94) fl MCH (28-32) pg MCHC (32-34) % Baso # (Auto) (0.0-0.1) K/mm3 ABG pH (7.320-7.450) POC ABG pCO2 (32.0-48.0) mmHg POC ABG pO2 (83-108) mmHg ABG Hemoglobin (12.0-17.5) ABG Oxyhemoglobin (94-98) ABG Chloride (98-107) mmol/L ABG Glucose (65-95) mg/dL Potassium (3.6-5.0) mmol/L Glucose (75-100) mg/dL POC Glucose 142 H (70-105) mg/dL Calcium (8.4-10.2) mg/dL Albumin (3.9-5) g/dL Arterial Blood Glucose (65-95) mg/dL Arterial Blood Ionized Calcium (4.6-5.3) mg/dL
--- NOTE | 2021-02-26 08:24 | History and Physical Report ---
History of Present Illness Date of examination: 02/26/21 Date of admission: 02/25/21 21:52 Past History Past Medical History: other (Asthma, s/p intubation X2,Nasal Polyps) Past Surgical History: Other (MYRNA) Social history: denies: smoking, alcohol abuse Family history: hypertension Medications and Allergies Allergies Allergy/AdvReac Type Severity Reaction Status Date / Time No Known Allergies Allergy Verified 06/20/20 09:35 Home Medications Medication Instructions Recorded Confirmed Last Taken Type Cetirizine HCl [ZyrTEC] 10 mg PO DAILY #30 capsule 01/26/20 Unknown Rx Fluticasone [Flonase] 1 spray NS QDAY #1 bottle 01/26/20 Unknown Rx predniSONE [Deltasone] 20 mg PO DAILY #5 tablet 01/26/20 Unknown Rx Azithromycin [Zithromax Z-JOEY] 250 mg PO DAILY #6 tablet 03/02/20 Unknown Rx Benzonatate [Tessalon Perles] 100 mg PO Q8HR #30 capsule 03/02/20 Unknown Rx Cetirizine HCl [Zyrtec 10mg tab] 10 mg PO DAILY #30 tablet 03/02/20 Unknown Rx Prednisone [predniSONE 10 mg 10 mg PO .TAPER #21 tab.ds.pk 03/02/20 Unknown Rx (6-Day Pack, 21 Tabs)] ALBUTEROL NEB's [Proventil 0.083% 3 ml IH Q6H PRN #75 ml 04/12/20 Unknown Rx NEBS] Albuterol Mdi (or & Nicu Only) 2 puff IH QID PRN #1 inhalation 04/12/20 Unknown Rx [ProAir HFA Inhaler] ALBUTEROL NEB's [Proventil 0.083% 2.5 mg IH TID PRN #1 box 06/20/20 Unknown Rx NEBS] Albuterol Mdi (or & Nicu Only) 2 puff IH QID PRN #1 inhalation 06/20/20 Unknown Rx [ProAir HFA Inhaler] Prednisone [predniSONE 10 mg 10 mg PO .TAPER #1 tab.ds.pk 06/20/20 Unknown Rx (6-Day Pack, 21 Tabs)] ALBUTEROL NEB's [Proventil 0.083% 2.5 mg IH TID PRN #1 box 02/11/21 Unknown Rx NEBS] Albuterol Mdi (or & Nicu Only) 2 puff IH Q6H PRN #8.5 gram 02/11/21 Unknown Rx [ProAir HFA Inhaler] Active Meds: Active Medications Acetaminophen (Acetaminophen 650 Mg Rect Supp) 650 mg [place] Q6H PRN PRN Reason: Pain MILD(1-3)/Fever >100.5/HERRING Albuterol/Ipratropium (Ipratropium/Albuterol Sulfate 3 Ml Ampul.Neb) 1 ampul IH Q6HRT [facility] Last Admin: 02/26/21 08:22 Dose: 1 ampul Documented by: Enoxaparin Sodium (Enoxaparin 40 Mg/0.4 Ml Inj) 40 mg SUB-Q QDAY@2200 [facility]; Protocol Famotidine (Famotidine 20 Mg/2 Ml Inj) 20 mg IV BID [facility] Hydrophilic Ointment (Lip Therapy Vaseline) 1 applic TP Q2HR PRN PRN Reason: Dry Lips Propofol (Diprivan 10 Mg/Ml) 1,000 mg in 100 mls @ 3.21 mls/hr IV TITR [facility]; Protocol Last Titration: 02/26/21 05:20 Dose: Infused Documented by: Midazolam HCl 100 mg/ Sodium (Chloride) 100 mls @ 2 mls/hr IV TITR [facility]; Protocol Last Titration: 02/26/21 05:19 Dose: 1 mg/hr, 1 mls/hr Documented by: Sodium Chloride (Nacl 0.9% 1000 Ml) 1,000 mls @ 75 mls/hr IV DIRECT [facility] Last Admin: 02/26/21 01:30 Dose: 75 mls/hr Documented by: Ceftriaxone Sodium (Rocephin/Ns 1 Gm/50 Ml) 1 gm in 50 mls @ 100 mls/hr IV Q24H [facility]; Protocol Azithromycin (Zithromax/Ns) 500 mg in 250 mls @ 250 mls/hr IV Q24H [facility] Methylprednisolone Sodium Succinate (Methylprednisolone Sod Succinate 40 Mg/1 Ml Inj) 40 mg IV Q8HR [facility] Last Admin: 02/26/21 06:28 Dose: 40 mg Documented by: Midazolam HCl (Midazolam 2 Mg/2 Ml Inj) 2 mg IV Q10MIN PRN PRN Reason: Sedation Morphine Sulfate (Morphine 2 Mg/1 Ml Inj) 2 mg IV Q4H PRN PRN Reason: Pain, Moderate (4-6) Multi-Ingred Cream/Lotion/Oil/Oint (Mineral Oil/Petrolatum, White Ophth Oint 3.5 Gm) 1 applic OU Q4HR PRN PRN Reason: Dry Eye(s) Ondansetron HCl (Ondansetron 4 Mg/2 Ml Inj) 4 mg IV Q8H PRN PRN Reason: Nausea And Vomiting Senna/Docusate Sodium (Sennosides/Docusate Sodium 8.6/50 Mg Tab) 1 tab FEEDTUBE BID [facility] Sodium Chloride (Sodium Chloride 0.9% 10 Ml Flush Syringe) 10 ml IV BID [facility] Sodium Chloride (Sodium Chloride 0.9% 10 Ml Flush Syringe) 10 ml IV PRN PRN PRN Reason: LINE FLUSH Exam - Constitutional Vitals: Temp Pulse Resp BP Pulse Ox 98.7 F 106 H 20 108/68 97 02/26/21 08:00 02/26/21 08:23 02/26/21 08:23 02/26/21 08:19 02/26/21 08:19 Results - Labs CBC & Chem 7: 02/25/21 19:03 02/25/21 19:03 Labs: Laboratory Last Values WBC 11.4 K/mm3 (4.5-11.0) H 02/25/21 19:03 RBC 5.07 M/mm3 (3.65-5.03) H 02/25/21 19:03 Hgb 11.3 gm/dl (11.8-15.2) L 02/25/21 19:03 Hct 37.1 % (35.5-45.6) 02/25/21 19:03 MCV 73 fl (84-94) L 02/25/21 19:03 MCH 22 pg (28-32) L 02/25/21 19:03 MCHC 31 % (32-34) L 02/25/21 19:03 RDW 15.1 % (13.2-15.2) 02/25/21 19:03 Plt Count 201 K/mm3 (140-440) 02/25/21 19:03 Lymph % (Auto) 27.4 % (13.4-35.0) 02/25/21 19:03 Darke % (Auto) 2.9 % (0.0-7.3) 02/25/21 19:03 Eos % (Auto) 1.6 % (0.0-4.3) 02/25/21 19:03 Baso % (Auto) 1.8 % (0.0-1.8) 02/25/21 19:03 Lymph # (Auto) 3.1 K/mm3 (1.2-5.4) 02/25/21 19:03 Darke # (Auto) 0.3 K/mm3 (0.0-0.8) 02/25/21 19:03 Eos # (Auto) 0.2 K/mm3 (0.0-0.4) 02/25/21 19:03 Baso # (Auto) 0.2 K/mm3 (0.0-0.1) H 02/25/21 19:03 Seg Neutrophils % 66.3 % (40.0-70.0) 02/25/21 19:03 Seg Neutrophils # 7.5 K/mm3 (1.8-7.7) 02/25/21 19:03 ABG pH 7.390 (7.320-7.450) 02/26/21 03:27 POC ABG pCO2 38.1 mmHg (32.0-48.0) 02/26/21 03:27 POC ABG pO2 140.5 mmHg (83-108) H 02/26/21 03:27 POC ABG HCO3 22.5 02/26/21 03:27 ABG O2 Saturation 99.1 (0-100) 02/26/21 03:27 POC ABG Base Excess -2.1 02/26/21 03:27 ABG Hemoglobin 12.2 (12.0-17.5) 02/26/21 03:27 ABG Oxyhemoglobin 98.2 (94-98) H 02/26/21 03:27 ABG Methemoglobin 0.3 (0.0-1.5) 02/26/21 03:27 ABG Sodium 140.7 mmol/L (136.0-145.0) 02/26/21 03:27 ABG Potassium 3.9 mmol/L (3.40-4.50) 02/26/21 03:27 ABG Chloride 112.0 mmol/L (98-107) H 02/26/21 03:27 ABG Glucose 176 mg/dL (65-95) H 02/26/21 03:27 Carboxyhemoglobin 0.6 (0.5-1.5) 02/26/21 03:27 FiO2 % 50.0 02/26/21 03:27 Sodium 142 mmol/L (137-145) 02/25/21 19:03 Potassium 3.5 mmol/L (3.6-5.0) L 02/25/21 19:03 Chloride 106.5 mmol/L (98-107) 02/25/21 19:03 Carbon Dioxide 22 mmol/L (22-30) 02/25/21 19:03 Anion Gap 17 mmol/L 02/25/21 19:03 BUN 12 mg/dL (9-20) 02/25/21 19:03 Creatinine 1.0 mg/dL (0.8-1.3) 02/25/21 19:03 Estimated GFR > 60 ml/min 02/25/21 19:03 BUN/Creatinine Ratio 12 % 02/25/21 19:03 Glucose 223 mg/dL (75-100) H 02/25/21 19:03 POC Glucose 142 mg/dL (70-105) H 02/26/21 06:44 Calcium 8.3 mg/dL (8.4-10.2) L 02/25/21 19:03 Total Bilirubin 0.20 mg/dL (0.1-1.2) 02/25/21 19:03 AST 23 units/L (5-40) 02/25/21 19:03 ALT 26 units/L (7-56) 02/25/21 19:03 Alkaline Phosphatase 80 units/L (35-129) 02/25/21 19:03 Total Protein 6.5 g/dL (6.3-8.2) 02/25/21 19:03 Albumin 3.8 g/dL (3.9-5) L 02/25/21 19:03 Albumin/Globulin Ratio 1.4 % 02/25/21 19:03 Arterial Blood Glucose 176 mg/dL (65-95) H 02/26/21 03:27 Arterial Blood Ionized Calcium 4.7 mg/dL (4.6-5.3) 02/26/21 03:27 Issa/IV: Voiding Method Indwelling Catheter Assessment and Plan Assessment and plan: Assessment and Plan - Patient Problems (1) Status asthmaticus Current Visit: Yes Status: Acute Plan to address problem: Patient has been placed on nebulizing treatments and IV steroid. Consult placed to pulmonology for evaluation. He has been intubated x 2 in the past. (2) Acute respiratory failure with hypoxia and hypercapnia Current Visit: Yes Status: Resolved Plan to address problem: Secondary to the asthma exacerbation. Patient currently intubated and sedated. (3) Hypokalemia Current Visit: Yes Status: Acute Plan to address problem: Potassium will be repleted and will monitor chemistry. (4) DVT prophylaxis Current Visit: No Status: Acute Plan to address problem: Patient placed on subcutaneous Lovenox. (5) Full code status Current Visit: Yes Status: Acute Plan to address problem: Patient is full code.
[2021-02-26] MEDS: FAMOTIDINE 20 MG/2 ML INJ IV SCH ×3 (09:19→22:06)
[2021-02-26] MEDS: SENNOSIDES/DOCUSATE SODIUM 8.6/50 MG TAB FEEDTUBE SCH ×3 (09:20→22:06)
[2021-02-26 09:23] LABS: Hematocrit 36.6 % (35.5-45.6); Hemoglobin 11.5 gm/dl (11.8-15.2); Mean Corpuscular HGB Conc 32 % (32-34); Mean Corpuscular Volume 72 fl (84-94); Platelet Count 195 K/mm3 (140-440); Red Blood Count 5.11 M/mm3 (3.65-5.03); Red Cell Distribution Width 15.4 % (13.2-15.2)
[2021-02-26 09:37] LABS: INR 0.98 (0.87-1.13)
[2021-02-26 09:46] LABS: BUN/Creatinine Ratio 15; Blood Urea Nitrogen 12 mg/dL (9-20); Calcium 8.9 mg/dL (8.4-10.2); Hemolysis Index 2
--- NOTE | 2021-02-26 12:19 | Consultation ---
History of Present Illness Consult date: 02/26/21 Requesting physician: REID ENGLAND Reason for consult: other (Status Asthmaticus) History of present illness: PULMONARY/CCM CONSULT NOTE (Full dictation # [id number]) Please see dictated notes for full details Past History Past Medical History: other (Asthma, s/p intubation X2,Nasal Polyps) Past Surgical History: Other (MYRNA) Social history: denies: smoking, alcohol abuse Family history: hypertension Medications and Allergies Allergies Allergy/AdvReac Type Severity Reaction Status Date / Time No Known Allergies Allergy Verified 06/20/20 09:35 Home Medications Medication Instructions Recorded Confirmed Last Taken Type Cetirizine HCl [ZyrTEC] 10 mg PO DAILY #30 capsule 01/26/20 Unknown Rx Fluticasone [Flonase] 1 spray NS QDAY #1 bottle 01/26/20 Unknown Rx predniSONE [Deltasone] 20 mg PO DAILY #5 tablet 01/26/20 Unknown Rx Azithromycin [Zithromax Z-JOEY] 250 mg PO DAILY #6 tablet 03/02/20 Unknown Rx Benzonatate [Tessalon Perles] 100 mg PO Q8HR #30 capsule 03/02/20 Unknown Rx Cetirizine HCl [Zyrtec 10mg tab] 10 mg PO DAILY #30 tablet 03/02/20 Unknown Rx Prednisone [predniSONE 10 mg 10 mg PO .TAPER #21 tab.ds.pk 03/02/20 Unknown Rx (6-Day Pack, 21 Tabs)] ALBUTEROL NEB's [Proventil 0.083% 3 ml IH Q6H PRN #75 ml 04/12/20 Unknown Rx NEBS] Albuterol Mdi (or & Nicu Only) 2 puff IH QID PRN #1 inhalation 04/12/20 Unknown Rx [ProAir HFA Inhaler] ALBUTEROL NEB's [Proventil 0.083% 2.5 mg IH TID PRN #1 box 06/20/20 Unknown Rx NEBS] Albuterol Mdi (or & Nicu Only) 2 puff IH QID PRN #1 inhalation 06/20/20 Unknown Rx [ProAir HFA Inhaler] Prednisone [predniSONE 10 mg 10 mg PO .TAPER #1 tab.ds.pk 06/20/20 Unknown Rx (6-Day Pack, 21 Tabs)] ALBUTEROL NEB's [Proventil 0.083% 2.5 mg IH TID PRN #1 box 02/11/21 Unknown Rx NEBS] Albuterol Mdi (or & Nicu Only) 2 puff IH Q6H PRN #8.5 gram 02/11/21 Unknown Rx [ProAir HFA Inhaler] Active Meds: Active Medications Acetaminophen (Acetaminophen 650 Mg Rect Supp) 650 mg [place] Q6H PRN PRN Reason: Pain MILD(1-3)/Fever >100.5/HERRING Albuterol/Ipratropium (Ipratropium/Albuterol Sulfate 3 Ml Ampul.Neb) 1 ampul IH Q6HRT [facility] Last Admin: 02/26/21 08:22 Dose: 1 ampul Documented by: Enoxaparin Sodium (Enoxaparin 40 Mg/0.4 Ml Inj) 40 mg SUB-Q QDAY@2200 [facility]; Protocol Famotidine (Famotidine 20 Mg/2 Ml Inj) 20 mg IV BID [facility] Last Admin: 02/26/21 09:19 Dose: 20 mg Documented by: Hydrophilic Ointment (Lip Therapy Vaseline) 1 applic TP Q2HR PRN PRN Reason: Dry Lips Propofol (Diprivan 10 Mg/Ml) 1,000 mg in 100 mls @ 3.21 mls/hr IV TITR [facility]; Protocol Last Admin: 02/26/21 12:13 Dose: 5 mcg/kg/min, 3.21 mls/hr Documented by: Midazolam HCl 100 mg/ Sodium (Chloride) 100 mls @ 2 mls/hr IV TITR [facility]; Protocol Last Titration: 02/26/21 05:19 Dose: 1 mg/hr, 1 mls/hr Documented by: Sodium Chloride (Nacl 0.9% 1000 Ml) 1,000 mls @ 75 mls/hr IV DIRECT [facility] Last Admin: 02/26/21 12:14 Dose: 75 mls/hr Documented by: Azithromycin (Zithromax/Ns) 500 mg in 250 mls @ 250 mls/hr IV Q24H [facility] Ceftriaxone Sodium (Rocephin/Ns 2 Gm/100 Ml) 2 gm in 100 mls @ 200 mls/hr IV Q24H [facility]; Protocol Methylprednisolone Sodium Succinate (Methylprednisolone Sod Succinate 40 Mg/1 Ml Inj) 40 mg IV Q8HR [facility] Last Admin: 02/26/21 06:28 Dose: 40 mg Documented by: Midazolam HCl (Midazolam 2 Mg/2 Ml Inj) 2 mg IV Q10MIN PRN PRN Reason: Sedation Morphine Sulfate (Morphine 2 Mg/1 Ml Inj) 2 mg IV Q4H PRN PRN Reason: Pain, Moderate (4-6) Multi-Ingred Cream/Lotion/Oil/Oint (Mineral Oil/Petrolatum, White Ophth Oint 3.5 Gm) 1 applic OU Q4HR PRN PRN Reason: Dry Eye(s) Ondansetron HCl (Ondansetron 4 Mg/2 Ml Inj) 4 mg IV Q8H PRN PRN Reason: Nausea And Vomiting Senna/Docusate Sodium (Sennosides/Docusate Sodium 8.6/50 Mg Tab) 1 tab FEEDTUBE BID [facility] Last Admin: 02/26/21 09:20 Dose: 1 tab Documented by: Sodium Chloride (Sodium Chloride 0.9% 10 Ml Flush Syringe) 10 ml IV BID [facility] Last Admin: 02/26/21 09:20 Dose: 10 ml Documented by: Sodium Chloride (Sodium Chloride 0.9% 10 Ml Flush Syringe) 10 ml IV PRN PRN PRN Reason: LINE FLUSH Physical Examination Vital signs: Vital Signs Pulse BP Pulse Ox 99 H 136/76 99 02/25/21 18:37 02/25/21 18:37 02/25/21 18:37 Results - Laboratory Findings CBC and BMP: 02/26/21 08:48 02/26/21 08:48 ABG ABG pH 7.390 (7.320-7.450) 02/26/21 03:27 POC ABG pCO2 38.1 mmHg (32.0-48.0) 02/26/21 03:27 POC ABG pO2 140.5 mmHg (83-108) H 02/26/21 03:27 POC ABG HCO3 22.5 02/26/21 03:27 ABG O2 Saturation 99.1 (0-100) 02/26/21 03:27 PT/INR, D-dimer PT 13.5 Sec. (12.2-14.9) 02/26/21 08:48 INR 0.98 (0.87-1.13) 02/26/21 08:48 Abnormal lab findings: Abnormal Labs 07/01/1102/25/21 02/25/21 18:43 19:03 19:03 WBC 11.4 H RBC 5.07 H Hgb 11.3 L MCV 73 L MCH 22 L MCHC 31 L RDW Baso # (Auto) 0.2 H ABG pH 7.182 L POC ABG pCO2 63.3 H POC ABG pO2 61.4 L ABG Hemoglobin 11.3 L ABG Oxyhemoglobin 85.0 L ABG Chloride 112.0 H ABG Glucose 190 H Potassium 3.5 L Chloride Glucose 223 H POC Glucose Calcium 8.3 L Albumin 3.8 L Arterial Blood Glucose 190 H Arterial Blood Ionized Calcium 4.3 L 02/25/21 02/26/21 02/26/21 19:40 00:16 03:27 WBC RBC Hgb MCV MCH MCHC RDW Baso # (Auto) ABG pH 7.249 L POC ABG pCO2 53.8 H POC ABG pO2 335.2 H 140.5 H ABG Hemoglobin ABG Oxyhemoglobin 99.0 H 98.2 H ABG Chloride 110.0 H 112.0 H ABG Glucose 181 H 176 H Potassium Chloride Glucose POC Glucose 143 H Calcium Albumin Arterial Blood Glucose 181 H 176 H Arterial Blood Ionized Calcium 4.5 L 02/26/21 02/26/21 02/26/21 06:44 08:48 08:48 WBC 16.9 H RBC 5.11 H Hgb 11.5 L MCV 72 L MCH 23 L MCHC RDW 15.4 H Baso # (Auto) ABG pH POC ABG pCO2 POC ABG pO2 ABG Hemoglobin ABG Oxyhemoglobin ABG Chloride ABG Glucose Potassium Chloride 110.6 H Glucose 148 H POC Glucose 142 H Calcium Albumin Arterial Blood Glucose Arterial Blood Ionized Calcium 02/26/21 12:06 WBC RBC Hgb MCV MCH MCHC RDW Baso # (Auto) ABG pH POC ABG pCO2 POC ABG pO2 ABG Hemoglobin ABG Oxyhemoglobin ABG Chloride ABG Glucose Potassium Chloride Glucose POC Glucose 143 H Calcium Albumin Arterial Blood Glucose Arterial Blood Ionized Calcium
[2021-02-26] MEDS ORDERED: fentaNYL 100 MCG/2 ML INJ IV PRN (12:55)
[2021-02-26] MEDS ORDERED: fentaNYL DRIP Premix 2,000 MCG/100 ML BAG IV SCH (13:00)
[2021-02-26 13:06] LABS: Total Cells Counted 100
[2021-02-26 13:07] LABS: Ovalocytes 1+
[2021-02-26 13:09] LABS: Platelet Estimate Consistent w Auto
[2021-02-26] MEDS ORDERED: cefTRIAXone/NS 2 GM/100 ML 2 GM/100 ML BAG IV SCH (20:00)
[2021-02-26] MEDS ORDERED: cefTRIAXone/NS 1 GM/50 ML 1 GM/50 ML BAG IV SCH (20:30)
[2021-02-26] MEDS ORDERED: AZITHROMYCIN/NS 500 MG/250 ML 500 MG/250 ML BAG IV SCH (21:00)
[2021-02-26] MEDS: BUDESONIDE 0.5 MG/2 ML NEBU IH SCH (21:10)
[2021-02-26] MEDS: ARFORMOTEROL 15 MCG/2 ML NEBU IH SCH (21:10)
[2021-02-26] MEDS ORDERED: ENOXAPARIN 40 MG/0.4 ML INJ SUB-Q SCH (22:00)
--- NOTE | 2021-02-26 22:20 | Consultation ---
DATE OF CONSULTATION: 02/26/2021 PULMONARY CRITICAL CARE CONSULT NOTE CONSULTING PHYSICIAN: Dr. Florence. REASON FOR CONSULTATION: Acute hypoxemic respiratory failure, on mechanical ventilatory support; acute asthma exacerbation. CHIEF COMPLAINT AND HISTORY OF PRESENT ILLNESS: The patient is a 55-year-old obese male with past medical history significant for a diagnosis of severe persistent asthma, has had couple of intubations in the past, presented into the Emergency Room yesterday complaining of shortness of breath. He was initially placed on noninvasive ventilation, was unable to tolerate it. EMS were unable to intubate him en route. In the Emergency Room, he was altered, he was obtunded, he was intubated and we are asked to assist with management. When I stopped by to see him, he was resting in bed. His girlfriend does mention that he had traveled from [place] by road and that apparently he states he has been out of his bronchodilators at the dinner table. He had become short of breath, started coughing and then she called EMS. In the Emergency Room, there was an abnormal chest x-ray, mild basilar atelectasis and leukocytosis. Again at bedside, he was alert. He was oriented. He had sedation adjustment stopped. His girlfriend was in the room. He was asking to see when he will be able to go home. He denied chest pain. He denied nausea, vomiting or overt aspiration. He denied any history of tobacco use or abuse. This really is as much of the history of presentation as I have. He also denies any new-onset leg pain or swelling, either unilaterally or bilaterally or any suggestion of a deep venous thrombosis. PAST MEDICAL HISTORY: 1. Asthma. 2. Obesity. 3. History of nasal polyps. PAST SURGICAL HISTORY: Unknown. MEDICATIONS: He was on at the time I stopped by to see him, according to the medication administration record included the following: Tylenol 650 mg p.o. q. 6 hours p.r.n. mild pain or fevers, DuoNeb nebulizer treatments scheduled q. 6 hours, azithromycin 500 mg IV daily, Rocephin 2 grams IV daily, Lovenox 40 mg subcutaneous daily, Pepcid 20 mg IV b.i.d., Solu-Medrol was going at 40 mg IV q. 8 hours, Zofran 4 mg IV q. 8 hours p.r.n. nausea and vomiting, propofol drip was going at 10 mcg per kilogram per minute. He was on a Versed drip at 2 mg per hour. Senna docusate 1 tablet p.o. b.i.d. scheduled. ALLERGIES: No known drug allergies. DIET: Obese gentleman, acute weight loss or gain history is denied. FAMILY AND SOCIAL HISTORY: Lives in the community. Denies alcohol, tobacco or illicit drug use or abuse. FAMILY HISTORY: Significant for hypertension. REVIEW OF SYSTEMS: No loss of consciousness. No new onset seizures. No new onset focal weakness. He did have the altered acute encephalopathy at initial presentation. No gross hematochezia or melena, no gross hematuria. He denies dysuria. No hematemesis, no bloody tracheal secretions, no witnessed seizures. Denies heat or cold intolerance. Denies polydipsia or polyuria. Complete 13-system review of system was obtained. Pertinent positives and/or negatives as in body of history above, otherwise they are noncontributory. PHYSICAL EXAMINATION: VITAL SIGNS: At presentation in the Emergency Room, review of vital signs shows that he was afebrile, temperature 97.5 degrees Fahrenheit, pulse of 99, respiratory rate of 21, blood pressure 136/76, O2 sats were 99%, inspired oxygen concentration at that time was not recorded. When I stopped by to see him, his O2 sats were 98% that was on the assist control, PRVC mode, tidal volume 500, rate of 12, PEEP of 6 and 40% FiO2. GENERAL: He is a middle-aged obese male. Normocephalic, atraumatic on the mechanical ventilator with mildly increased respiratory effort at rest. HEAD, EYES, EARS, NOSE AND THROAT: Anicteric. No conjunctival erythema. Oropharynx was moist. Endotracheal tube was taped at the lips around 23-24 cm. No gross jugular venous distention, no thyromegaly. NECK: He does have a large neck circumference. Grossly, there were no palpable lymph nodes in the supraclavicular or submandibular lymph node chains. LUNGS: Auscultation of both lung lobo actually revealed clear bilateral breath sounds. No active wheezing. HEART: Sounds 1 and 2 are heard at the time of my evaluation. Regular rate and rhythm without overt rubs or murmurs. ABDOMEN: Soft, full, protuberant. Bowel sounds are positive, nontender, no palpable hepatosplenomegaly. EXTREMITIES: Without overt digital clubbing or cyanosis. No pedal edema. Pedal pulses are 2+ bilaterally. NEUROLOGIC: Pupils are equal, round, about 3 mm, reactive to light. Extraocular muscle movements are intact. He moves all 4 extremities spontaneously. He is alert and oriented apparently x3. SKIN: Normal turgor in the areas examined without overt cellulitis or rash. Please see the wound care nurses' notes for full description of his skin. PSYCHIATRIC: Mood was normal. Affect was appropriate. He was cooperative. He had intact judgment and insight. LABORATORY DATA: From my review are as follows: Admission white cell count 11,400, hemoglobin 11.3, hematocrit 37.1, platelet count was 201. No band forms on the manual differential. Presentation ABG showed a pH of 7.25, pCO2 of 54, pO2 of 335, that was on 100% FiO2. This morning, pH is 7.39, pCO2 is 38, pO2 was 141, 50%, FiO2 on the above-mentioned vent settings. Serum sodium was 142 at presentation, potassium 3.5, chloride 107, bicarbonate 22, BUN 12, creatinine 1.0, glucose 226. Liver function tests otherwise essentially within normal limits. Potassium was corrected up to 4.2 at this point. No microbiology studies for my review. Chest x-ray has been reviewed. Essentially unremarkable chest x-ray. The area of the left lower lobe is very minimally if any atelectasis noted. No real focal infiltrates. ASSESSMENT: 1. Acute hypoxemic respiratory failure secondary to #2. 2. Status asthmaticus. 3. Obesity. 4. Medical noncompliance. 5. History of nasal polyposis. PLAN: I am going to go ahead and stop the Versed and stop the propofol, put him on a fentanyl drip if needed. Spontaneous breathing trial will be started right away. Arterial blood gases will be gotten about a couple of hours and if appropriate, he will be extubated. Oxygen will be weaned to keep sats greater than or equal to about 92% acutely. Ventilator-associated pneumonia bundle has been introduced. I will get a stat procalcitonin level and if that is normal, I will stop the antibiotics. I do not see any real empiric need for antibiotics. Otherwise, he is appropriately on GI and DVT prophylaxis. I will begin Brovana and Pulmicort and quickly wean him off the systemic steroids once he has been extubated. I am going to discontinue the IV normal saline at this point. Flu and pneumonia vaccination will be addressed per protocol. He is appropriately on GI and DVT prophylaxis and bowel regimen. Thank you very much for the consult. We will follow along and make further recommendations as picture progresses/becomes clearer. He is critically ill on life-sustaining interventions including mechanical ventilatory support at high risk of from cardiopulmonary system decompensation. Better medication compliance has been counseled and that will be followed post-extubation. At this time, I spent about 35-40 minutes of critical care time without overlap and excluding any procedural time that may be necessary. TID: [id number] RECEIPT: [id number] SANDRA/LIZ
[2021-02-27] MEDS: IPRATROPIUM/ALBUTEROL SULFATE 3 ML AMPUL.NEB IH SCH ×3 (02:50→14:52)
[2021-02-27] MEDS: methylPREDNISolone Sod Succinate 40 MG/1 ML INJ IV SCH ×2 (05:46→14:53)
[2021-02-27] MEDS: BUDESONIDE 0.5 MG/2 ML NEBU IH SCH (08:36)
[2021-02-27] MEDS: ARFORMOTEROL 15 MCG/2 ML NEBU IH SCH (08:36)
[2021-02-27] MEDS: SENNOSIDES/DOCUSATE SODIUM 8.6/50 MG TAB FEEDTUBE SCH (10:19)
[2021-02-27] MEDS: FAMOTIDINE 20 MG/2 ML INJ IV SCH (10:19)
--- NOTE | 2021-02-27 14:04 | Progress Note ---
Assessment and Plan 35-year-old -[place] male with known history of severe persistent asthma status post intubation twice in the past presents to the emergency room via EMS today with difficulty breathing. Patient was initially placed on CPAP but on was unable to tolerate it. Attempts were made by EMS to intubate patient without success therefore presented in the emergency room with Ambu bag. Upon arrival in the emergency room patient was found to be altered, barely responsive and subsequently intubated. According to information gotten from girlfriend patient was said to have traveled from [place] by road, however at the dinner table earlier in the evening, he started coughing and became short of breath. Complained chest pain when he lay on left side. Patient extubated and presently resting on room air. Work-up in the emergency room today, chest x-ray reveals minimal atelectasis in the left base. Labs significant for leukocytosis of 11.4 He had a mild hypokalemia of 3.5. Patient has no history of smoking, alcohol or drug abuse. Worked in [employer] Not . Has children one. Patient being admitted with severe asthma exacerbation. Patient given I/V solumedrol, Albuterol/atrovent aerosol treatments, S/C Lovenox, Famotidine, Zithromax and ceftriaxone. Patient says feeling better, breathing better. No complaint of chest pain, shortness of breath or cough. Patient resting on room air. O2 saturation 96%. Patient afebrile. Has leukocytosis. - Patient Problems (1) Acute respiratory failure with hypoxia and hypercapnia Current Visit: Yes Status: Acute Plan to address problem: Patient intubated and extubated. Presently resting on room air. (2) Acute asthma exacerbation Current Visit: No Status: Acute Plan to address problem: Albuterol/atrovent aerososol treatments. Continue I/V solumedrol. Continue S/C Lovenox. Continue famotidine. Subjective Date of service: 02/27/21 Interval history: 35-year-old -[place] male with known history of severe persistent asthma status post intubation twice in the past presents to the emergency room via EMS today with difficulty breathing. Patient was initially placed on CPAP but on was unable to tolerate it. Attempts were made by EMS to intubate patient without success therefore presented in the emergency room with Ambu bag. Upon arrival in the emergency room patient was found to be altered, barely responsive and subsequently intubated. According to information gotten from girlfriend patient was said to have traveled from [place] by road, however at the dinner table earlier in the evening, he started coughing and became short of breath. Complained chest pain when he lay on left side. Patient extubated and presently resting on room air. Work-up in the emergency room today, chest x-ray reveals minimal atelectasis in the left base. Labs significant for leukocytosis of 11.4 He had a mild hypokalemia of 3.5. Patient has no history of smoking, alcohol or drug abuse. Worked in [employer] Not . Has children one. Patient being admitted with severe asthma exacerbation. Patient given I/V solumedrol, Albuterol/atrovent aerosol treatments, S/C Lovenox, Famotidine, Zithromax and ceftriaxone. Patient says feeling better, breathing better. No complaint of chest pain, sh ortness of breath or cough. Patient resting on room air. O2 saturation 96%. Patient afebrile. Has leukocytosis. Objective Vital Signs - 12hr 02/27/21 02/27/21 02/27/21 02:52 04:34 08:00 Temperature 98.8 F Pulse Rate 88 Pulse Rate [ 91 H 85 Anterior Bilateral Throughout] Respiratory 16 Rate Respiratory 18 19 Rate [Anterior Bilateral Throughout] Blood Pressure 97/54 O2 Sat by Pulse 95 Oximetry 02/27/21 08:37 Temperature Pulse Rate Pulse Rate [ Anterior Bilateral Throughout] Respiratory Rate Respiratory Rate [Anterior Bilateral Throughout] Blood Pressure O2 Sat by Pulse 96 Oximetry Constitutional: no acute distress, alert Eyes: non-icteric ENT: oropharynx moist Neck: supple Ascultation: Bilateral: wheezes Cardiovascular: regular rate and rhythm Gastrointestinal: normoactive bowel sounds, soft, non-tender Integumentary: normal Extremities: no cyanosis, no edema Neurologic: normal mental status, non-focal exam, pupils equal and round, CN II- XII normal Psychiatric: mood appropriate CBC and BMP: 02/26/21 08:48 02/26/21 08:48 ABG, PT/INR, D-dimer: ABG ABG pH 7.375 (7.320-7.450) 02/26/21 15:22 POC ABG pCO2 39.5 mmHg (32.0-48.0) 02/26/21 15:22 POC ABG pO2 68.0 mmHg (83-108) L 02/26/21 15:22 POC ABG HCO3 22.6 02/26/21 15:22 ABG O2 Saturation 94.4 (0-100) 02/26/21 15:22 PT/INR, D-dimer PT 13.5 Sec. (12.2-14.9) 02/26/21 08:48 INR 0.98 (0.87-1.13) 02/26/21 08:48 Abnormal lab findings: Abnormal Labs 02/25/21 02/25/21 02/25/21 18:43 19:03 19:03 WBC 11.4 H RBC 5.07 H Hgb 11.3 L MCV 73 L MCH 22 L MCHC 31 L RDW Baso # (Auto) 0.2 H Seg Neuts % (Manual) Lymphocytes % (Manual) Seg Neutrophils # Man ABG pH 7.182 L POC ABG pCO2 63.3 H POC ABG pO2 61.4 L ABG Hemoglobin 11.3 L ABG Oxyhemoglobin 85.0 L ABG Chloride 112.0 H ABG Glucose 190 H Potassium 3.5 L Chloride Glucose 223 H POC Glucose Calcium 8.3 L Albumin 3.8 L Arterial Blood Glucose 190 H Arterial Blood Ionized Calcium 4.3 L 02/25/21 02/26/21 02/26/21 19:40 00:16 03:27 WBC RBC Hgb MCV MCH MCHC RDW Baso # (Auto) Seg Neuts % (Manual) Lymphocytes % (Manual) Seg Neutrophils # Man ABG pH 7.249 L POC ABG pCO2 53.8 H POC ABG pO2 335.2 H 140.5 H ABG Hemoglobin ABG Oxyhemoglobin 99.0 H 98.2 H ABG Chloride 110.0 H 112.0 H ABG Glucose 181 H 176 H Potassium Chloride Glucose POC Glucose 143 H Calcium Albumin Arterial Blood Glucose 181 H 176 H Arterial Blood Ionized Calcium 4.5 L 02/26/21 02/26/21 02/26/21 06:44 08:48 08:48 WBC 16.9 H RBC 5.11 H Hgb 11.5 L MCV 72 L MCH 23 L MCHC RDW 15.4 H Baso # (Auto) Seg Neuts % (Manual) 89.0 H Lymphocytes % (Manual) 10.0 L Seg Neutrophils # Man 15.0 H ABG pH POC ABG pCO2 POC ABG pO2 ABG Hemoglobin ABG Oxyhemoglobin ABG Chloride ABG Glucose Potassium Chloride 110.6 H Glucose 148 H POC Glucose 142 H Calcium Albumin Arterial Blood Glucose Arterial Blood Ionized Calcium 02/26/21 02/26/21 02/26/21 12:06 15:22 18:11 WBC RBC Hgb MCV MCH MCHC RDW Baso # (Auto) Seg Neuts % (Manual) Lymphocytes % (Manual) Seg Neutrophils # Man ABG pH POC ABG pCO2 POC ABG pO2 68.0 L ABG Hemoglobin ABG Oxyhemoglobin 93.5 L ABG Chloride 112.0 H ABG Glucose 146 H Potassium Chloride Glucose POC Glucose 143 H 131 H Calcium Albumin Arterial Blood Glucose 146 H Arterial Blood Ionized Calcium Chest x-ray: report reviewed, image reviewed Additional Studies: CHEST 1 VIEW 02/25/2021 6:00 PM INDICATION / CLINICAL INFORMATION: ETT placement. COMPARISON: 06/20/2020. FINDINGS: SUPPORT DEVICES: Endotracheal tube and NG tube in satisfactory position. HEART / MEDIASTINUM: No significant abnormality. LUNGS / PLEURA: Right lung clear. Minimal atelectasis left base. No pneumoth orax. ADDITIONAL FINDINGS: No significant additional findings. IMPRESSION: Minimal atelectasis left base. XR chest 1V ap 02/26/21 INDICATION / CLINICAL INFORMATION: follow up respiratory failure. COMPARISON: Radiograph from yesterday. FINDINGS: SUPPORT DEVICES: Unchanged. HEART / MEDIASTINUM: Unchanged. LUNGS / PLEURA: Lung parenchyma is not significantly changed. No pneumothorax. ADDITIONAL FINDINGS: No significant additional findings. IMPRESSION: 1. No significant interval change.
[2021-02-27 18:45] VITALS: BP 126/79
--- NOTE | 2021-02-27 18:48 | Discharge Summary ---
Providers - Providers Date of Admission: 02/25/21 21:52 Date of discharge: 02/27/21 Attending physician: REECE BARTHOLOMEW 02/25/21 22:28 Consult to Dietitian/Nutrition [CONS] Routine Physician Instructions: Reason For Exam: Reason for Consult: Diet education Consult to Physician [CONS] Routine Comment: Consulting Provider: LIVAN ALVARADO Physician Instructions: Reason For Exam: STATUS ASTHMATICUS, RESPIRATORY FAILURE Primary care physician: [employer] Hospitalization Condition: Fair Disposition: DC-01 TO HOME OR SELFCARE Exam - Constitutional Vitals: Temp Pulse Resp BP Pulse Ox 99.0 F 100 H 20 126/79 93 02/27/21 18:35 02/27/21 18:35 02/27/21 18:35 02/27/21 18:35 02/27/21 18:35 Plan Follow up with: PRIMARY CARE, [Primary Care Provider] - 3-5 Days
[2021-02-27] MEDS ORDERED: FAMOTIDINE 20 MG TAB PO SCH (22:00)
== END 2021-02-27 21:08 | disposition home or self-care (01) | DRG 208 ==
LOC: ED 18:12 → CC1 21:52 → 3A 02-26 20:25
PROVIDERS: ADMIT Internal Medicine Geriatric Medicine; ATTEND Internal Medicine
PROC: 4A033R1 Measurement of Arterial Saturation, Peripheral, Percutaneous Approach (ICD-10-PCS; principal; 2021-02-25)
PROC: 5A1935Z Respiratory Ventilation, Less than 24 Consecutive Hours (ICD-10-PCS; 2021-02-25)
PROC: 0BH17EZ Insertion of Endotracheal Airway into Trachea, Via Natural or Artificial Opening (ICD-10-PCS; 2021-02-25)
DX: J45.52 Severe persistent asthma with status asthmaticus (principal); J96.01 Acute respiratory failure with hypoxia; J96.02 Acute respiratory failure with hypercapnia; E87.2 Acidosis; E87.6 Hypokalemia; D72.829 Elevated white blood cell count, unspecified; E66.9 Obesity, unspecified; Z79.899 Other long term (current) drug therapy; Z79.891 Long term (current) use of opiate analgesic; Z79.01 Long term (current) use of anticoagulants; Z82.49 Family history of ischemic heart disease and other diseases of the circulatory system; Z91.19 Patient's noncompliance with other medical treatment and regimen
CPT/HCPCS: 36415; 36600; 71045; 80048; 80053; 82805; 82962; 84145; 85007; 85025; 85610; 87070; 87205; 94002; 94003; 94640; 94644; 96374; G0378; J0330; J0456; J0696; J1650; J2250; J2405; J2704; J2920; J7030

== ENCOUNTER 2021-03-03 23:50 | Emergency (ER) | payer SELFPAY ==
[2021-03-04] MEDS ORDERED: IPRATROPIUM 0.02% NEBU 2.5 ML IH ONE ×2 (00:12→00:48)
[2021-03-04] MEDS ORDERED: ALBUTEROL 2.5 MG/3 ML NEBU IH ONE ×2 (00:12→00:46)
--- NOTE | 2021-03-04 00:15 | Emergency Department Report ---
HPI - General Chief Complaint: Dyspnea/Respdistress Time Seen by Provider: 03/04/21 00:02 - HPI HPI: This is a 55-year-old -[place] male presents to the emergency department via EMS from home with the complaint of respiratory distress and initially altered mental status. The patient was just admitted here on 02/25 for status asthmaticus. At some point he was intubated and sent to the ICU. He was discharged for 5 days ago. The initial call today was for shortness of breath. EMS found the patient to be in respiratory distress and during their treatment, and while in route, the patient went unresponsive. Patient arrived to the emergency department with a GCS of 3, receiving bag valve ventilation. Just as the patient was about to receive RSI and be intubated, he suddenly opened his eyes, became responsive and oriented. The patient now is able to tell us that he was having progressively worsening shortness of breath throughout the day. ED Past Medical Hx - Past Medical History Hx Hypertension: No Hx Congestive Heart Failure: No Hx Diabetes: No Hx Asthma: Yes Hx COPD: No Additional medical history: Nasal polyps. intubated x 2 - Surgical History Past Surgical History?: Yes Additional Surgical History: MYRNA - Social History Smoking Status: Never Smoker - Medications Home Medications: Home Medications Medication Instructions Recorded Confirmed Last Taken Type Cetirizine HCl [ZyrTEC] 10 mg PO DAILY #30 capsule 01/26/20 Unknown Rx Fluticasone [Flonase] 1 spray NS QDAY #1 bottle 01/26/20 Unknown Rx Azithromycin [Zithromax Z-JOEY] 250 mg PO DAILY #6 tablet 03/02/20 Unknown Rx Benzonatate [Tessalon Perles] 100 mg PO Q8HR #30 capsule 03/02/20 Unknown Rx Cetirizine HCl [Zyrtec 10mg tab] 10 mg PO DAILY #30 tablet 03/02/20 Unknown Rx Prednisone [predniSONE 10 mg 10 mg PO .TAPER #21 tab.ds.pk 03/02/20 Unknown Rx (6-Day Pack, 21 Tabs)] ALBUTEROL NEB's [Proventil 0.083% 3 ml IH Q6H PRN #75 ml 04/12/20 Unknown Rx NEBS] Albuterol Mdi (or & Nicu Only) 2 puff IH QID PRN #1 inhalation 06/20/20 Unknown Rx [ProAir HFA Inhaler] Albuterol Mdi (or & Nicu Only) 2 puff IH Q6H PRN #8.5 gram 02/11/21 Unknown Rx [ProAir HFA Inhaler] ALBUTEROL NEB's [Proventil 0.083% 2.5 mg IH TID PRN #50 box 02/27/21 Unknown Rx NEBS] Montelukast [Singulair] 10 mg PO QPM #30 tablet 02/27/21 Unknown Rx Prednisone [predniSONE 10 mg 10 mg PO .TAPER #1 tab.ds.pk 02/27/21 Unknown Rx (6-Day Pack, 21 Tabs)] ALBUTEROL NEB's [Proventil 0.083% 2.5 mg IH TID PRN #1 box 03/04/21 Unknown Rx NEBS] Albuterol Mdi (or & Nicu Only) 2 puff IH QID PRN #1 inhalation 03/04/21 Unknown Rx [ProAir HFA Inhaler] predniSONE [Deltasone] 20 mg PO DAILY #4 tablet 03/04/21 Unknown Rx ED Review of Systems ROS: Stated complaint: RESP DISTRESS Other details as noted in HPI Comment: All other systems reviewed and negative Constitutional: denies: chills, fever Eyes: denies: eye pain, vision change ENT: denies: ear pain, throat pain Respiratory: shortness of breath, wheezing Cardiovascular: denies: chest pain, palpitations Gastrointestinal: denies: abdominal pain, vomiting Genitourinary: denies: dysuria, discharge Musculoskeletal: denies: back pain, arthralgia Skin: denies: rash, lesions Neurological: denies: headache, weakness Physical Exam - Physical Exam Vital Signs: Vital Signs 03/03/21 23:56 Temperature 98.3 F Pulse Rate 122 H Respiratory 21 Rate Blood Pressure 120/69 O2 Sat by Pulse 100 Oximetry Physical Exam: GENERAL: The patient is ill-appearing. HENT: Normocephalic. Atraumatic. Patient has moist mucous membranes. EYES: Pupils equal reactive to light bilaterally. NECK: Supple. Trachea is midline. CHEST/LUNGS: Mild wheezing heard. Patient is receiving bag valve ventilation. HEART/CARDIOVASCULAR: Regular. There is mild tachycardia. There is no murmur. ABDOMEN: Abdomen is soft, nontender. Patient has normal bowel sounds. There is no abdominal distention. SKIN: Skin is warm and dry. NEURO: The patient is unresponsive to verbal or painful stimuli. MUSCULOSKELETAL: There is no obvious or deformity. ED Course Vital Signs 03/03/21 23:56 Temperature 98.3 F Pulse Rate 122 H Respiratory 21 Rate Blood Pressure 120/69 O2 Sat by Pulse 100 Oximetry - Reevaluation(s) Reevaluation #1: 03/04/21 05:34 This patient presented to the emergency department unresponsive with a GCS of 3. As we were setting up for RSI and intubation, the patient suddenly opened his eyes and began speaking to us. He was immediately oriented, AAO x3. The patient's oxygen saturation remained in the mid to high 90s without any further bag valve ventilation or respiratory support. For this reason I decided the patient did not require intubation and he did not even appear to require BiPAP at this time. His new physical examination is listed below: GENERAL: The patient is well-developed well-nourished. HENT: Normocephalic. Atraumatic. Patient has moist mucous membranes. EYES: Extraocular motions are intact. Pupils equal reactive to light bilaterally. NECK: Supple. Trachea is midline. CHEST/LUNGS: Mild wheezing throughout the chest. No tachypnea or accessory muscle use. There is no respiratory distress noted. HEART/CARDIOVASCULAR: Regular. There is mild tachycardia. There is no murmur. ABDOMEN: Abdomen is soft, nontender. Patient has normal bowel sounds. SKIN: Skin is warm and dry. NEURO: The patient is awake, alert, and oriented. The patient is cooperative. The patient has no focal neurologic deficits. Normal speech. Cranial nerves II through XII grossly intact. No facial asymmetry. No pronator drift. MUSCULOSKELETAL: There is no tenderness or deformity. There is no limitation range of motion. ED Medical Decision Making - Lab Data Result diagrams: 03/04/21 00:10 03/04/21 00:10 - EKG Data -: EKG Interpreted by Me EKG shows normal: sinus rhythm, axis, intervals (Prolonged QTC), QRS complexes, ST-T waves Rate: normal - EKG Data When compared to previous EKG there are: no significant change Interpretation: unchanged when compared t (02/11/21) - Radiology Data Radiology results: report reviewed, image reviewed interpreted by me: Chest x-ray does not show any acute process. There are no pleural effusions, obvious pneumonia and there is no pneumothorax. No widened mediastinum. CTA CHEST WITH CONTRAST INDICATION / CLINICAL INFORMATION: SOB, elevated dimer. TECHNIQUE: Axial CT images were obtained through the chest after injection of IV contrast. 3 plane MIP and/or 3D reconstructions were produced. All CT scans at this location are performed using CT d ose reduction for ALARA by means of automated exposure control. COMPARISON: None available. FINDINGS: PULMONARY ARTERIES: Evaluation for segmental and subsegmental pulmonary emboli is limited due to respiratory motion artifact. No central or large segmental pulmonary embolus. THORACIC AORTA: No significant abnormality. HEART: No significant abnormality. ADENOPATHY: No significant adenopathy. LUNGS/PLEURA: Patchy bibasilar pulmonary opacities most likely reflect volume loss. No acute consolidation. No pleural effusion. No pneumothorax. ADDITIONAL FINDINGS: None. UPPER ABDOMEN: No acute findings. SKELETAL STRUCTURES: No significant osseous abnormality. IMPRESSION: 1. No evidence of central or large segmental pulmonary embolus. Evaluation for segmental and subsegmental pulmonary emboli limited due to respiratory motion artifact. 2. Bibasilar pulmonary opacities are favored to reflect volume loss. Otherwise, no acute cardiopulmonary disease. - Medical Decision Making This patient initially presented to the emergency department in respiratory distress and appearing unresponsive. Just prior to the patient being intubated he suddenly became awake, alert, oriented. He no longer appeared in respiratory distress but just had some mild wheezing and/or bronchospasm. EKG did not have any morphology consistent with ST elevation myocardial infarction or any significant dysrhythmia. Chest x-ray does not show any pneumonia, pleural effusions, pneumothorax, widened mediastinum or any other acute process. Patient was given a continuous breathing treatment with both albuterol and Atrovent. Prior to presentation, in route with EMS, the patient received Solu- Medrol, magnesium and some albuterol and epinephrine. Labs have been mostly unremarkable except for a mild leukocytosis of about 15,000, and an elevated D-dimer level of about 1000. Because of the elevated D-dimer level, patient had a CT angiography of the chest that does not show any pulmonary embolism, dissection, or any other acute process. The patient has been reevaluated multiple times over almost 6 hours in this emergency department. He has remained awake, alert, oriented. There have been no further episodes of being unresponsive, nor any decompensation in his breathing. The patient was walked in the emergency department without any increased work of breathing or hypoxia. For all these reasons patient appears safe for discharge home at this time. He has been given an outpatient referral for both primary care and pulmonology. He has been given a prescription for a course of steroids, albuterol inhaler, and nebulizer treatments. The patient will return to the emergency department with any worsening of symptoms or with any acute distress. Critical Care Time: No Critical care attestation.: If time is entered above; I have spent that time in minutes in the direct care of this critically ill patient, excluding procedure time. ED Disposition Clinical Impression: Unresponsive episode Acute asthma exacerbation Qualifiers: Asthma severity: unspecified severity Asthma persistence: unspecified Qualified Code(s): J45.901 - Unspecified asthma with (acute) exacerbation Disposition: - TO HOME OR SELFCARE Is pt being admited?: No Condition: Stable Instructions: Asthma, Adult, Bronchospasm, Adult Additional Instructions: Please follow-up with a primary care physician in the next few days. I am giving you a referral for a local full stack software engineer, Dr. Pierce, to follow-up regarding your recurrent asthma exacerbations. Take all medications as prescribed. Return to the emergency department with any worsening of your symptoms, new or concerning symptoms not addressed during this current emergency department v isit, or with any acute distress. Prescriptions: predniSONE [Deltasone] 20 mg PO DAILY #4 tablet Albuterol Mdi (or & Nicu Only) [ProAir HFA Inhaler] 2 puff IH QID PRN #1 inha lation PRN Reason: Shortness Of Breath ALBUTEROL NEB's [Proventil 0.083% NEBS] 2.5 mg IH TID PRN #1 box PRN Reason: Wheezing Referrals: YANCY MARQUIS RN [Registered Nurse] - 2-3 Days MISTY CAZARES MD [Staff Physician] - 2-3 Days [facility] [Provider Group] - 2-3 Days Time of Disposition: 05:12
[2021-03-04 00:42] LABS: Basophils % (Auto) 0.2 % (0.0-1.8); Eosinophils # (Auto) 0.2 K/mm3 (0.0-0.4); Eosinophils % (Auto) 1.5 % (0.0-4.3); Hematocrit 38.2 % (35.5-45.6); Lymphocytes # (Auto) 2.9 K/mm3 (1.2-5.4); Lymphocytes % (Auto) 18.3 % (13.4-35.0); Mean Corpuscular HGB Conc 31 % (32-34); Mean Corpuscular Volume 73 fl (84-94); Monocytes # (Auto) 0.6 K/mm3 (0.0-0.8); Platelet Count 200 K/mm3 (140-440); Red Blood Count 5.27 M/mm3 (3.65-5.03); Red Cell Distribution Width 14.7 % (13.2-15.2)
[2021-03-04 00:49] LABS: Alanine Aminotransferase 28 units/L (7-56); Albumin 3.9 g/dL (3.9-5); BUN/Creatinine Ratio 13; Blood Urea Nitrogen 13 mg/dL (9-20); Calcium 7.8 mg/dL (8.4-10.2); Hemolysis Index 5
[2021-03-04 00:52] LABS: INR 0.89 (0.87-1.13)
--- NOTE | 2021-03-04 01:35 | XRay Report ---
XR chest 1V ap INDICATION / CLINICAL INFORMATION: SOB. COMPARISON: 02/26/2021 FINDINGS: SUPPORT DEVICES: None. HEART /PULMONARY VASCULATURE: No significant abnormality. LUNGS / PLEURA: Mild diffuse interstitial opacities are stable. No new or increasing airspace consoli dation. No pleural effusion. No pneumothorax. ADDITIONAL FINDINGS: No significant additional findings. IMPRESSION: Stable appearance of the chest Signer Name: Dre Hudson MD Signed: 03/04/2021 1:31 AM Workstation Name: [id number]
--- NOTE | 2021-03-04 02:30 | Cat Scan Report ---
CTA CHEST WITH CONTRAST INDICATION / CLINICAL INFORMATION: SOB, elevated dimer. TECHNIQUE: Axial CT images were obtained through the chest after injection of IV contrast. 3 plane [place] P and/or 3D reconstructions were produced. All CT scans at this location are performed using CT dose reduction for ALARA by means of automated exposure control. COMPARISON: None available. FINDINGS: PULMONARY ARTERIES: Evaluation for segmental and subsegmental pulmonary emboli is limited due to resp iratory motion artifact. No central or large segmental pulmonary embolus. THORACIC AORTA: No significant abnormality. HEART: No significant abnormality. ADENOPATHY: No significant adenopathy. LUNGS/PLEURA: Patchy bibasilar pulmonary opacities most likely reflect volume loss. No acute consolid ation. No pleural effusion. No pneumothorax. ADDITIONAL FINDINGS: None. UPPER ABDOMEN: No acute findings. SKELETAL STRUCTURES: No significant osseous abnormality. IMPRESSION: 1. No evidence of central or large segmental pulmonary embolus. Evaluation for segmental and subsegme ntal pulmonary emboli limited due to respiratory motion artifact. 2. Bibasilar pulmonary opacities are favored to reflect volume loss. Otherwise, no acute cardiopulmon conor disease. Signer Name: Dre Hudson MD Signed: 03/04/2021 2:25 AM Workstation Name: [id number]
[2021-03-04] MEDS ORDERED: SODIUM CHLORIDE 0.9% 1000 ML 1,000 ML IV ONE (02:40)
[2021-03-04 05:20] VITALS: BP 130/79
--- NOTE | 2021-03-04 11:21 | Electrocardiograph Report ---
[facility] Test Date: 2021-03-04 Test Time: 04:44:19 Pat Name: DASHAWN ANN Department: Room: Gender: M Public Safety Officer: : 1965 Requested By: SANIA ARNETT Order Number: [id number] Reading MD: John Cabezas Measurements Intervals [place] Rate: 99 P: 62 [place]: 182 QRS: 23 QRSD: 86 T: 29 QT: 392 QTc: 504 Interpretive Statements Sinus rhythm Prolonged QT interval Compared to ECG 02/11/2021 09:37:15 Prolonged QT interval now present Electronically Signed On 03-04-2021 11:21:19 EDT by John Cabezas
== END 2021-03-04 05:40 | disposition home or self-care (01) ==
LOC: ED 23:50
DX: J45.901 Unspecified asthma with (acute) exacerbation (principal); R41.89 Other symptoms and signs involving cognitive functions and awareness; Z79.899 Other long term (current) drug therapy
CPT/HCPCS: 36415; 71045; 71275; 80053; 83880; 84484; 85025; 85379; 85610; 93005; 94640; 96360; 99285; J7030; Q9967; 94644

== ENCOUNTER 2021-06-08 14:25 | Emergency (ER) | payer BC ==
[2021-06-08 14:46] VITALS: BP 124/74
[2021-06-08] MEDS ORDERED: IPRATROPIUM/ALBUTEROL SULFATE 3 ML AMPUL.NEB IH ONE (14:49)
--- NOTE | 2021-06-08 14:49 | Emergency Department Report ---
ED Shortness of Breath HPI - General Chief Complaint: Dyspnea/Respdistress Stated Complaint: ASTHMA ATTACK Time Seen by Provider: 06/08/21 14:43 Source: patient Mode of arrival: Ambulatory Limitations: No Limitations - History of Present Illness Initial Comments: Patient presents with a 2-day history of shortness of breath. He states he has been wheezing. He has had a dry cough. He was having trouble breathing. His chest felt kind of tight. He states that the chest tightness only occurred while he was taking a deep breath or while he was coughing. He has no exertional pain. The pain is not pleuritic. It does not radiate or migrate. He describes a tightness in the chest area. He uses albuterol inhaler without symptomatic improvement. He has not noticed swelling in the feet specifically. There is no travel. He has no trauma. He has never been intubated before. - Related Data Previous Rx's Medication Instructions Recorded Last Taken Type Cetirizine HCl [ZyrTEC] 10 mg PO DAILY #30 capsule 01/26/20 Unknown Rx Fluticasone [Flonase] 1 spray NS QDAY #1 bottle 01/26/20 Unknown Rx Benzonatate [Tessalon Perles] 100 mg PO Q8HR #30 capsule 03/02/20 Unknown Rx Cetirizine HCl [Zyrtec 10mg tab] 10 mg PO DAILY #30 tablet 03/02/20 Unknown Rx Montelukast [Singulair] 10 mg PO QPM #30 tablet 02/27/21 Unknown Rx ALBUTEROL NEB's [Proventil 0.083% 3 ml IH Q6H PRN #75 ml 06/08/21 Unknown Rx NEBS] Albuterol Mdi (or & Nicu Only) 2 puff IH Q6H PRN #8.5 gram 06/08/21 Unknown Rx [ProAir HFA Inhaler] Prednisone [predniSONE 10 mg 10 mg PO .TAPER #21 tab.ds.pk 06/08/21 Unknown Rx (6-Day Pack, 21 Tabs)] Allergies Allergy/AdvReac Type Severity Reaction Status Date / Time No Known Allergies Allergy Verified 06/20/20 09:35 ED Review of Systems ROS: Stated complaint: ASTHMA ATTACK Other details as noted in HPI Comment: All other systems reviewed and negative Constitutional: denies: fever Eyes: denies: eye pain ENT: denies: ear pain Respiratory: see HPI Cardiovascular: as per HPI Endocrine: denies: unexplained weight loss Gastrointestinal: denies: abdominal pain Genitourinary: denies: dysuria Musculoskeletal: denies: joint swelling Skin: denies: rash Neurological: denies: headache Hematological/Lymphatic: easy bruising ED Past Medical Hx - Past Medical History Hx Hypertension: No Hx Congestive Heart Failure: No Hx Diabetes: No Hx Asthma: Yes Hx COPD: No Additional medical history: Nasal polyps. intubated x 2 - Surgical History Additional Surgical History: MYRNA - Family History Family history: other (Asthma) - Social History Smoking Status: Never Smoker - Medications Home Medications: Home Medications Medication Instructions Recorded Confirmed Last Taken Type Cetirizine HCl [ZyrTEC] 10 mg PO DAILY #30 capsule 01/26/20 Unknown Rx Fluticasone [Flonase] 1 spray NS QDAY #1 bottle 01/26/20 Unknown Rx Benzonatate [Tessalon Perles] 100 mg PO Q8HR #30 capsule 03/02/20 Unknown Rx Cetirizine HCl [Zyrtec 10mg tab] 10 mg PO DAILY #30 tablet 03/02/20 Unknown Rx Montelukast [Singulair] 10 mg PO QPM #30 tablet 02/27/21 Unknown Rx ALBUTEROL NEB's [Proventil 0.083% 3 ml IH Q6H PRN #75 ml 06/08/21 Unknown Rx NEBS] Albuterol Mdi (or & Nicu Only) 2 puff IH Q6H PRN #8.5 gram 06/08/21 Unknown Rx [ProAir HFA Inhaler] Prednisone [predniSONE 10 mg 10 mg PO .TAPER #21 tab.ds.pk 06/08/21 Unknown Rx (6-Day Pack, 21 Tabs)] ED Physical Exam - General Limitations: No Limitations, Other General appearance: alert, in distress (Mild) - Head Head exam: Present: atraumatic, normocephalic, normal inspection - Eye Eye exam: Present: normal appearance, EOMI, scleral icterus. Absent: conjunctival injection - ENT ENT exam: Present: normal exam, normal orophraynx, normal external ear exam - Neck Neck exam: Present: normal inspection. Absent: meningismus - Respiratory Respiratory exam: Present: respiratory distress (Mild), wheezes (Mild bilateral), prolonged expiratory - Cardiovascular Cardiovascular Exam: Present: regular rate, normal rhythm - GI/Abdominal GI/Abdominal exam: Present: soft. Absent: tenderness, mass - Extremities Exam Extremities exam: Present: normal inspection, normal capillary refill. Absent: pedal edema - Back Exam Back exam: Absent: CVA tenderness (R), CVA tenderness (L) - Neurological Exam Neurological exam: Present: alert, oriented X3, CN II-XII intact, normal gait, reflexes normal - Psychiatric Psychiatric exam: Present: normal affect, normal mood - Skin Skin exam: Present: warm, dry ED Course Vital Signs 06/08/21 06/08/21 06/08/21 14:34 14:41 14:45 Temperature 98.2 F 98.1 F Pulse Rate 88 86 Respiratory 18 16 Rate Blood Pressure 141/94 124/74 [Right] O2 Sat by Pulse 97 99 99 Oximetry 06/08/21 15:27 Temperature 98.0 F Pulse Rate 81 Respiratory 14 Rate Blood Pressure [Right] O2 Sat by Pulse 97 Oximetry - Reevaluation(s) Reevaluation #1: 06/08/21 14:48 DuoNeb was ordered Reevaluation #2: 06/08/21 15:31 Chest x-ray was noted. Patient had improved. He was discharged. ED Medical Decision Making - Medical Decision Making Patient presented with respiratory distress. He does not have evidence of pneumonia. He does not appear to be septic or toxic. He is not hypoxic. Patient has no symptomatology that would be consistent with coronavirus infection. He has no flu symptoms or fever suggestive of influenza. Patient can be treated symptomatically and follow-up as an outpatient. Critical Care Time: No Critical care attestation.: If time is entered above; I have spent that time in minutes in the direct care of this critically ill patient, excluding procedure time. ED Disposition Clinical Impression: Asthma exacerbation Qualifiers: Asthma severity: mild Asthma persistence: intermittent Qualified Code(s): J45.21 - Mild intermittent asthma with (acute) exacerbation Disposition: 01 HOME / SELF CARE / HOMELESS Is pt being admited?: No Condition: Stable Instructions: Asthma, Adult, Peak Flow Meter, Asthma Attack Prevention, Adult Additional Instructions: Drink plenty water. Return for problems. Follow-up with your regular doctor for recheck. Follow-up with the referral physician if you do not have a regular doctor. Continue your home medications. Drink plenty of water. Return for problems. Prescriptions: Prednisone [predniSONE 10 mg (6-Day Pack, 21 Tabs)] 10 mg PO .TAPER #21 tab.ds.pk Albuterol Mdi (or & Nicu Only) [ProAir HFA Inhaler] 2 puff IH Q6H PRN #8.5 gram PRN Reason: Shortness Of Breath ALBUTEROL NEB's [Proventil 0.083% NEBS] 3 ml IH Q6H PRN #75 ml PRN Reason: Wheezing Referrals: PRIMARY CARE, [Primary Care Provider] - 3-5 Days RONEY GILL MD [Staff Physician] - 3-5 Days
[2021-06-08] MEDS ORDERED: predniSONE 20 MG TAB PO ONE (14:50)
--- NOTE | 2021-06-08 15:15 | XRay Report ---
CHEST 2 VIEWS INDICATION / CLINICAL INFORMATION: sob. COMPARISON: One view of the chest from 03/04/2021. FINDINGS: SUPPORT DEVICES: None. HEART / MEDIASTINUM: No significant abnormality. LUNGS / PLEURA: No significant pulmonary abnormality. No significant pleural effusion. No pneumothora x. ADDITIONAL FINDINGS: No significant additional findings. IMPRESSION: 1. No acute abnormality of the chest. Signer Name: Rigoberto Monte MD Signed: 06/08/2021 3:10 PM Workstation Name: [id number]
== END 2021-06-08 15:49 | disposition home or self-care (01) ==
LOC: ED 14:25
DX: J45.901 Unspecified asthma with (acute) exacerbation (principal); Z79.899 Other long term (current) drug therapy
CPT/HCPCS: 71046; 94640; 99283; J7512

== ENCOUNTER 2022-05-13 06:26 | Outpatient (CLI) | payer OTHER | END 2022-05-13 06:27 | disposition home or self-care (01) | LOC: PF 06:26 | PROVIDERS: ATTEND Internal Medicine | DX: Z02.71 Encounter for disability determination (principal) | CPT/HCPCS: 94060 ==

== ENCOUNTER 2022-05-13 09:23 | Emergency (ER) | payer BC, OTHER ==
[2022-05-13 10:00] VITALS: BP 125/79
[2022-05-13] MEDS ORDERED: dexAMETHasone 4 MG/ML VIAL IM ONE (13:11)
[2022-05-13] MEDS ORDERED: CYCLOBENZAPRINE 10 MG TAB PO ONE (13:11)
--- NOTE | 2022-05-13 13:12 | Emergency Department Report ---
ED Back Pain/Injury HPI - General Chief Complaint: Back Pain/Injury Stated Complaint: UPPER BACK PAIN Time Seen by Provider: 05/13/22 12:43 Source: patient Limitations: No Limitations - History of Present Illness Initial Comments: 56 YO COMES IN WITH A/C BACK PAIN- RIGHT THORACIC. VERY LOCALIZED SPOT WAS AT [place] LAST WEEK AND HAD A CT SCAN OF CHEST THAT WAS NORMAL HE DID NOT FOLLOW UP WITH PCP PAIN WORSE WITH MOVEMENT TOOK NOTHING FOR PAIN COOK SAUCE IN ER NO CP NO N/V/D NO FEVER NO CHILLS NO COUGH -: Gradual, days(s) Similar Symptoms Previously: Yes Radiation: none Consistency: intermittent Improves With: immobilization Worsens With: movement Associated Symptoms: denies other symptoms - Related Data Previous Rx's Medication Instructions Recorded Last Taken Type Albuterol Mdi (or & Nicu Only) 2 puff IH Q6H PRN #8.5 gram 07/19/21 Unknown Rx [ProAir HFA Inhaler] Azithromycin [Zithromax Z-JOEY] 250 mg PO DAILY 5 Days #6 tablet 07/19/21 Unknown Rx Budesonide [Pulmicort Flexhaler] 180 mcg IH BID 30 Days #1 07/19/21 Unknown Rx inhalation Cetirizine HCl [ZyrTEC 10mg cap] 10 mg PO DAILY 30 Days #30 capsule 07/19/21 Unknown Rx Fluticasone/Salmeterol [Advair 1 puff IH BID 30 Days #1 disk.w.dev 07/19/21 Unknown Rx Diskus 250-50 mcg] Ipratropium (Nf) [Atrovent] 2 puff IH QID PRN 30 Days #1 07/19/21 Unknown Rx inhalation Montelukast [Singulair] 10 mg PO QPM 30 Days #30 tablet 07/19/21 Unknown Rx methylPREDNISolone [Medrol 4MG 4 mg PO DAILY 6 Days #21 tab.ds.pk 07/19/21 Unknown Rx DOSEPAK (21 tabs)] Cyclobenzaprine [Flexeril] 10 mg PO TID PRN #10 tablet 05/13/22 Unknown Rx Ibuprofen [Motrin] 800 mg PO Q8HR PRN #30 tablet 05/13/22 Unknown Rx Allergies Allergy/AdvReac Type Severity Reaction Status Date / Time No Known Allergies Allergy Verified 07/14/21 08:15 ED Review of Systems ROS: Stated complaint: UPPER BACK PAIN Other details as noted in HPI Comment: All other systems reviewed and negative ED Past Medical Hx - Past Medical History Previous Medical History?: Yes Hx Hypertension: No Hx Congestive Heart Failure: No Hx Diabetes: No Hx Asthma: Yes Hx COPD: Yes Additional medical history: Nasal polyps. intubated x 3 - Surgical History Past Surgical History?: Yes Additional Surgical History: Unable to obtain - Family History Family history: no significant - Social History Smoking Status: Never Smoker Substance Use Type: None - Medications Home Medications: Home Medications Medication Instructions Recorded Confirmed Last Taken Type Albuterol Mdi (or & Nicu Only) 2 puff IH Q6H PRN #8.5 gram 07/19/21 Unknown Rx [ProAir HFA Inhaler] Azithromycin [Zithromax Z-JOEY] 250 mg PO DAILY 5 Days #6 tablet 07/19/21 Unknown Rx Budesonide [Pulmicort Flexhaler] 180 mcg IH BID 30 Days #1 07/19/21 Unknown Rx inhalation Cetirizine HCl [ZyrTEC 10mg cap] 10 mg PO DAILY 30 Days #30 capsule 07/19/21 Unknown Rx Fluticasone/Salmeterol [Advair 1 puff IH BID 30 Days #1 disk.w.dev 07/19/21 Unknown Rx Diskus 250-50 mcg] Ipratropium (Nf) [Atrovent] 2 puff IH QID PRN 30 Days #1 07/19/21 Unknown Rx inhalation Montelukast [Singulair] 10 mg PO QPM 30 Days #30 tablet 07/19/21 Unknown Rx methylPREDNISolone [Medrol 4MG 4 mg PO DAILY 6 Days #21 tab.ds.pk 07/19/21 Unknown Rx DOSEPAK (21 tabs)] Cyclobenzaprine [Flexeril] 10 mg PO TID PRN #10 tablet 05/13/22 Unknown Rx Ibuprofen [Motrin] 800 mg PO Q8HR PRN #30 tablet 05/13/22 Unknown Rx ED Physical Exam - General Limitations: No Limitations General appearance: alert, in no apparent distress - Head Head exam: Present: atraumatic, normocephalic - Eye Eye exam: Present: normal appearance - ENT ENT exam: Present: mucous membranes moist - Neck Neck exam: Present: normal inspection - Respiratory Respiratory exam: Present: normal lung sounds bilaterally. Absent: respiratory distress - Cardiovascular Cardiovascular Exam: Present: regular rate, normal rhythm. Absent: systolic murmur, diastolic murmur, rubs, gallop - GI/Abdominal GI/Abdominal exam: Present: soft, normal bowel sounds - Rectal Rectal exam: Present: deferred - Extremities Exam Extremities exam: Present: normal inspection - Back Exam Back exam: Present: normal inspection - Neurological Exam Neurological exam: Present: alert, oriented X3 - Psychiatric Psychiatric exam: Present: normal affect, normal mood - Skin Skin exam: Present: warm, dry, intact, normal color. Absent: rash ED Course Vital Signs 05/13/22 09:57 Temperature 98.1 F Pulse Rate 86 Respiratory 16 Rate Blood Pressure 125/79 [Right] O2 Sat by Pulse 98 Oximetry ED Medical Decision Making - Medical Decision Making NO FALL/TRAUMA NO SYSTEMIC SYMPTOMS NORMAL VS RECENT CT NORMAL PAIN REPRODUCIBLE FLEXERIL IN ER WITH RELIEF DC HOME WITH DC PLAN OF CARE INCLUDING DIET, MEDS, ACTIVITY AND FOLLOW UP Vital Signs 05/13/22 09:57 Temperature 98.1 F Pulse Rate 86 Respiratory 16 Rate Blood Pressure 125/79 [Right] O2 Sat by Pulse 98 Oximetry Critical care attestation.: If time is entered above; I have spent that time in minutes in the direct care of this critically ill patient, excluding procedure time. ED Disposition Clinical Impression: Back pain Disposition: 01 HOME / SELF CARE / HOMELESS Is pt being admited?: No Does the pt Need Aspirin: No Condition: Stable Instructions: Chronic Back Pain Additional Instructions: MEDS ORDERED TODAY FOLLOW UP WITH PCP REFERRAL BELOW Prescriptions: Cyclobenzaprine [Flexeril] 10 mg PO TID PRN #10 tablet PRN Reason: Muscle Spasm Ibuprofen [Motrin] 800 mg PO Q8HR PRN #30 tablet PRN Reason: Pain, Moderate (4-6) Referrals: MISTY CAZARES MD [Primary Care Provider] - 3-5 Days Forms: Work/School Release Form(ED) Time of Disposition: 13:54
== END 2022-05-13 13:56 | disposition home or self-care (01) ==
LOC: ED 09:23
DX: M54.6 Pain in thoracic spine (principal); J44.9 Chronic obstructive pulmonary disease, unspecified; Z79.899 Other long term (current) drug therapy
CPT/HCPCS: 96372; 99282; J1100